=== PATIENT | male | born 1955 | race Caucasian/White ===

== ENCOUNTER 2016-10-21 11:51 | Inpatient (IN) | payer OTHER ==
[~2016-10-21] VITALS: Ht 175.3 cm; Wt 93.5 kg
[2016-10-30] MEDS ORDERED: OXYC1TAB36 PO (13:19)
[2016-11-06] MEDS ORDERED: ONDANSETRON HCL 4 MG/2 ML VIAL IV PUSH ONE (12:00)
[2016-11-06] MEDS ORDERED: NEOSTIGMINE 3 MG/3 ML SYR IV ONE (12:00)
[2016-11-06] MEDS ORDERED: NORMOSOL R INJ 2,000 ML IV ONE (12:00)
[2016-11-06] MEDS ORDERED: ePHEDrine/NS 25 MG/5 ML SYR IV ONE (12:00)
[2016-11-06] MEDS ORDERED: PROPOFOL 200 MG/20 ML AMP IV ONE (12:00)
[2016-11-06] MEDS ORDERED: LACTATED RINGER'S 1000 ML INJ 2,000 ML IV ONE (12:00)
[2016-11-06 12:21] VITALS: BP 115/69; PULSE 68; RESP 18; TEMP 97.7; O2SAT 98
[2016-11-06] MEDS ORDERED: ALVIMOPAN 12 MG CAPSULE ONE (12:29)
[2016-11-06] MEDS ORDERED: CHLORHEXIDINE GLUCONATE 2 % 1 PACK (2 CLOTHS) TOPICAL PRN (12:30)
[2016-11-06] MEDS ORDERED: POVIDONE IODINE 5% (ANTISEPSIS KIT) 4 APPLICATIONS EACH NARE PRN (12:30)
[2016-11-06] MEDS ORDERED: LACTATED RINGER'S 1000 ML IV PRN (12:30)
[2016-11-06] MEDS ORDERED: SODIUM CHLORID 0.9% 500 ML IV PRN (12:30)
[2016-11-06] MEDS ORDERED: INSULIN HUMAN REGULAR 1,000 UNITS/10 ML VIAL SQ PRN (12:30)
[2016-11-06] MEDS ORDERED: DEXT 5%-NACL 0.9% 1000 ML INJ 1,000 ML IV SCH (12:30)
[2016-11-06] MEDS ORDERED: ceFAZolin 1,000 MG/NS 100 ML IV SCH ×2 (12:30)
[2016-11-06] MEDS ORDERED: METOPROLOL TARTRATE 25 MG TAB PO PRN (12:30)
[2016-11-06] MEDS ORDERED: METRONIDAZOLE 500 MG/100 ML ISONTONIC SOLN IV SCH (12:30)
[2016-11-06] MEDS ORDERED: BUPIVACAINE HCL PF 0.5% 30 ML VIAL ONE (12:35)
[2016-11-06] MEDS ORDERED: ACETAMINOPHEN 1000 MG/100 ML VIAL IV ONE (13:11)
[2016-11-06] MEDS ORDERED: MIDAZOLAM HCL 2 MG/2 ML VIAL ONE (13:11)
[2016-11-06] MEDS ORDERED: ARTIFICIAL TEARS OPTH OINT 3.5 APPLIC/3.5 GM TUBO ONE (13:11)
[2016-11-06] MEDS ORDERED: fentaNYL CITRATE 250 MCG/5 ML AMP ONE ×3 (13:12→15:25)
[2016-11-06] MEDS ORDERED: HYDROmorphone HCL PF 2 MG/ML VIAL ONE ×2 (13:12→13:13)
[2016-11-06 15:55] LABS: REVIEW FLAG FINAL
[2016-11-06] MEDS ORDERED: ACETAMINOPHEN/HYDROcodone 325 MG/5 MG TAB PO PRN ×2 (16:45)
[2016-11-06] MEDS ORDERED: BENZOCAINE 6 MG/MENTHOL 10 MG LOZENGE BUCCAL PRN (16:45)
[2016-11-06] MEDS ORDERED: NALOXONE HCL 0.4 MG/ML AMP IV PRN (16:45)
[2016-11-06] MEDS ORDERED: SODIUM CHLORIDE 0.9% FLUSH 10 ML FLUSH IV FLUSH PRN (16:45)
[2016-11-06] MEDS ORDERED: POTASSIUM CHLOR 20 MEQ PREMIX 100 ML IV PRN (16:45)
[2016-11-06] MEDS ORDERED: Post-op Orders (for Pharmacy) MISC XX ONE (16:45)
[2016-11-06] MEDS ORDERED: ENALAPRILAT 1.25 MG/ML VIAL IV PRN (16:45)
[2016-11-06] MEDS ORDERED: POTASSIUM CHLOR 40 MEQ PREMIX 100 ML IV PRN (16:45)
[2016-11-06] MEDS ORDERED: *morphine SULFATE 8 MG/ML PERIprocedure ONLY ONE ×2 (16:55→17:16)
[2016-11-06] MEDS ORDERED: DO NOT ADM ANY ANTICOAGULANT DRUGS PRN ×2 (17:15→17:45)
[2016-11-06 17:25] LABS: AUTOMATED NEUTROPHIL # 9.5 TH/MM3 (1.8-7.7); BASOPHIL % 0.2 % (0.0-2.0); EOSINOPHIL # 0.1 TH/MM3 (0-0.4); EOSINOPHIL % 0.6 % (0.0-4.0); HEMATOCRIT 31.7 % (39.0-51.0); HEMO FLAGS DIFF FINAL; LYMPH % 6.2 % (9.0-44.0); LYMPHOCYTE # 0.7 TH/MM3 (1.0-4.8); MEAN CELL VOLUME 91.2 FL (80.0-100.0); MEAN CORPUSCULAR HEMOGLOBIN 31.3 PG (27.0-34.0); MEAN CORPUSCULAR HGB CONC 34.3 % (32.0-36.0); MONO % 3.9 % (0.0-8.0); NEUT % 89.1 % (16.0-70.0); PLATELET COUNT 152 TH/MM3 (150-450); RED BLOOD COUNT 3.48 MIL/MM3 (4.50-5.90); RED CELL DISTRIBUTION WIDTH 13.7 % (11.6-17.2); WHITE BLOOD COUNT 10.7 TH/MM3 (4.0-11.0)
[2016-11-06] MEDS ORDERED: *HYDROmorphone PF 1 MG VIAL PERIprocedural Use ONLY ONE (17:38)
[2016-11-06] MEDS: D5-LR + KCL 20 MEQ INJ 1,000 ML IV SCH ×2 (17:44→21:25)
[2016-11-06] MEDS: MORPHINE SULFATE 30 MG/30 ML PCA IV SCH (17:49)
[2016-11-06] MEDS: METOCLOPRAMIDE HCL 10 MG/2 ML VIAL IVS SCH (17:49)
[2016-11-06] MEDS: ceFAZolin 2 GM PREMIX 50 ML IV SCH (17:55)
[2016-11-06 18:05] LABS: BICARBONATE 23.7 MEQ/L (21.0-32.0)
[2016-11-06 18:25] LABS: CALCIUM-PROTEIN CORRECTED 8.8 MG/DL (8.5-10.1)
[2016-11-06 20:00] VITALS: BP 143/87; PULSE 67; PULSE 86; RESP 18; TEMP 98.2; O2SAT 99
[2016-11-06 21:00] VITALS: PULSE 70
[2016-11-06] MEDS: SODIUM CHLORIDE 0.9% FLUSH 10 ML FLUSH IV FLUSH SCH (21:24)
[2016-11-06] MEDS: metroNIDAZOLE 500 MG INJ 100 ML IV SCH (21:24)
[2016-11-06] MEDS: FUROSEMIDE 20 MG/2 ML VIAL IV SCH (21:24)
[2016-11-06] MEDS: PCA - TOTAL MG MORPHINE DELIVERED PER SHIFT SCH (21:42)
[2016-11-06 22:00] VITALS: PULSE 82
[2016-11-06 23:00] VITALS: PULSE 66
[2016-11-07] VITALS (22 sets, daily range): BP systolic 111–131; BP diastolic 62–77; PULSE 66–90; RESP 18–20; TEMP 97.9–98.9; O2SAT 95–99
[2016-11-07] MEDS: ceFAZolin 2 GM PREMIX 50 ML IV SCH ×2 (00:21→08:32)
[2016-11-07] MEDS: METOCLOPRAMIDE HCL 10 MG/2 ML VIAL IVS SCH ×4 (00:21→17:20)
[2016-11-07] MEDS: D5-LR + KCL 20 MEQ INJ 1,000 ML IV SCH ×3 (00:23→17:20)
[2016-11-07] MEDS: metroNIDAZOLE 500 MG INJ 100 ML IV SCH ×2 (04:55→13:29)
[2016-11-07] MEDS: PCA - TOTAL MG MORPHINE DELIVERED PER SHIFT SCH ×3 (06:00→22:00)
[2016-11-07 07:21] LABS: BASOPHIL % 0.1 % (0.0-2.0); HEMATOCRIT 31.9 % (39.0-51.0); HEMO FLAGS DIFF FINAL; LYMPHOCYTE # 0.5 TH/MM3 (1.0-4.8); MEAN CELL VOLUME 90.2 FL (80.0-100.0); MEAN CORPUSCULAR HEMOGLOBIN 30.6 PG (27.0-34.0); MEAN CORPUSCULAR HGB CONC 33.9 % (32.0-36.0); MONO % 8.3 % (0.0-8.0); NEUT % 87.6 % (16.0-70.0); PLATELET COUNT 177 TH/MM3 (150-450); RED BLOOD COUNT 3.54 MIL/MM3 (4.50-5.90); RED CELL DISTRIBUTION WIDTH 13.8 % (11.6-17.2); WHITE BLOOD COUNT 12.6 TH/MM3 (4.0-11.0)
[2016-11-07 07:58] LABS: BICARBONATE 26.1 MEQ/L (21.0-32.0); POTASSIUM 4.3 MEQ/L (3.5-5.1)
[2016-11-07 08:24] LABS: CALCIUM-PROTEIN CORRECTED 8.2 MG/DL (8.5-10.1)
[2016-11-07] MEDS: KETOROLAC TROMETHAMINE 30 MG/ML (IVP) VIAL IVP PRN (08:31)
[2016-11-07] MEDS: PANTOPRAZOLE SODIUM 40 MG VIAL IVP SCH (08:31)
[2016-11-07] MEDS: FUROSEMIDE 20 MG/2 ML VIAL IV SCH ×2 (08:32→20:21)
[2016-11-07] MEDS: SODIUM CHLORIDE 0.9% FLUSH 10 ML FLUSH IV FLUSH SCH ×2 (08:32→20:20)
[2016-11-07] MEDS ORDERED: MISCELLANEOUS NURSING INFORMATION ONE (10:00)
--- NOTE | 2016-11-07 17:32 | HHI.PR ---
Subjective Remarks No N or V. Not c/o much pain. No stool from Ileostomy yet. Objective Vital Signs Date Time Temp Pulse Resp B/P Pulse Ox O2 Delivery O2 Flow Rate FiO2 11/07/16 16:01 82 11/07/16 15:15 78 11/07/16 15:15 98.7 89 18 121/66 98 11/07/16 14:01 80 11/07/16 13:00 76 11/07/16 12:00 74 11/07/16 11:01 98.6 79 18 112/67 98 11/07/16 11:00 76 11/07/16 10:01 72 11/07/16 09:30 18 11/07/16 09:00 80 11/07/16 08:39 96 Nasal Cannula 1.00 11/07/16 08:30 98.9 74 18 131/69 98 11/07/16 08:30 98 Nasal Cannula 2.00 11/07/16 08:00 70 11/07/16 07:00 78 11/07/16 06:00 78 11/07/16 06:00 20 11/07/16 05:00 72 11/07/16 04:00 Nasal Cannula 2.00 11/07/16 04:00 98.6 70 18 118/75 97 11/07/16 04:00 70 11/07/16 03:00 66 11/07/16 02:00 70 11/07/16 01:00 76 11/07/16 00:00 98.2 66 20 124/77 99 11/07/16 00:00 Nasal Cannula 2.00 11/07/16 00:00 68 11/06/16 23:00 66 11/06/16 22:00 82 11/06/16 21:42 20 11/06/16 21:00 70 11/06/16 20:00 Nasal Cannula 2.00 11/06/16 20:00 86 11/06/16 20:00 20 11/06/16 20:00 98.2 67 18 143/87 99 11/06/16 19:30 97.8 11/06/16 19:09 75 15 128/68 100 Nasal Cannula 3 11/06/16 18:00 69 15 135/77 99 Nasal Cannula 3 11/06/16 17:49 16 11/06/16 17:45 72 15 132/75 99 Nasal Cannula 3 11/06/16 17:30 68 14 131/69 99 Nasal Cannula 3 I/O 11/06/16 11/06/16 11/06/16 11/07/16 11/07/16 11/07/16 07:00 15:00 23:00 07:00 15:00 23:00 Intake Total 4525 ml 2426 ml Output Total 1820 ml 1725 ml Balance 2705 ml 701 ml Intake Oral 100 ml IV Total 625 ml 2326 ml Other 3900 ml Output Urine Total 490 ml 1625 ml Stool Total 10 ml Drainage Total 120 ml 100 ml Estimated Blood Loss 1200 ml Result Diagram: 11/07/16 0654 11/07/16 0654 Objective Remarks VS-S Abd: flat,soft,dressing dry. Stoma pink I&Os and Labs: OK Assessment and Plan Assessment and Plan POD#1--Stable Decrease IVs,ambulate,FLD tomorrow, D/C tele, Transfer to 7 Jadon Zavala MD Nov 07, 2016 17:32
[2016-11-07] MEDS: ALVIMOPAN 12 MG CAPSULE PO SCH (20:19)
[2016-11-08] VITALS (7 sets, daily range): BP systolic 111–143; BP diastolic 59–82; PULSE 83–89; RESP 16–19; TEMP 96.4–99.5; O2SAT 93–95
[2016-11-08] MEDS: METOCLOPRAMIDE HCL 10 MG/2 ML VIAL IVS SCH ×4 (01:46→17:22)
[2016-11-08] MEDS: MORPHINE SULFATE 30 MG/30 ML PCA IV SCH (01:49)
[2016-11-08] MEDS: D5-LR + KCL 20 MEQ INJ 1,000 ML IV SCH ×3 (03:12→20:40)
[2016-11-08 05:22] LABS: AUTOMATED NEUTROPHIL # 7.6 TH/MM3 (1.8-7.7); BASOPHIL % 0.2 % (0.0-2.0); EOSINOPHIL % 0.6 % (0.0-4.0); HEMATOCRIT 26.3 % (39.0-51.0); HEMO FLAGS DIFF FINAL; LYMPH % 5.6 % (9.0-44.0); LYMPHOCYTE # 0.5 TH/MM3 (1.0-4.8); MEAN CELL VOLUME 90.4 FL (80.0-100.0); MEAN CORPUSCULAR HEMOGLOBIN 31.9 PG (27.0-34.0); MEAN CORPUSCULAR HGB CONC 35.2 % (32.0-36.0); MONO % 7.8 % (0.0-8.0); NEUT % 85.8 % (16.0-70.0); PLATELET COUNT 142 TH/MM3 (150-450); RED BLOOD COUNT 2.91 MIL/MM3 (4.50-5.90); RED CELL DISTRIBUTION WIDTH 13.9 % (11.6-17.2); WHITE BLOOD COUNT 8.9 TH/MM3 (4.0-11.0)
[2016-11-08] MEDS: PCA - TOTAL MG MORPHINE DELIVERED PER SHIFT SCH (05:37)
[2016-11-08 05:52] LABS: BICARBONATE 30.8 MEQ/L (21.0-32.0)
[2016-11-08] MEDS: SODIUM CHLORIDE 0.9% FLUSH 10 ML FLUSH IV FLUSH SCH ×2 (08:14→20:39)
[2016-11-08] MEDS: FUROSEMIDE 20 MG/2 ML VIAL IV SCH ×2 (08:14→20:39)
[2016-11-08] MEDS: ALVIMOPAN 12 MG CAPSULE PO SCH ×2 (08:14→20:38)
[2016-11-08] MEDS: PANTOPRAZOLE SODIUM 40 MG VIAL IVP SCH (08:14)
[2016-11-08] MEDS ORDERED: PNEUMOCOCCAL POLYVALENT INJ 25 MCG/0.5 ML SYR IM ONE (10:00)
--- NOTE | 2016-11-08 10:09 | HHI.PR ---
Subjective Remarks No N or V. C/O more pain. Uses 5-6 10mg Hydrocodone daily at home. No stool from Ileostomy yet. Objective Vital Signs Date Time Temp Pulse Resp B/P Pulse Ox O2 Delivery O2 Flow Rate FiO2 11/08/16 08:55 94 21 11/08/16 08:10 93 Room Air 11/08/16 08:00 97.3 86 16 115/59 93 11/08/16 05:37 16 11/08/16 04:00 99.5 89 16 119/66 94 11/08/16 01:49 18 11/08/16 00:00 97.7 88 18 111/60 93 11/07/16 22:00 18 11/07/16 20:00 97.9 90 18 111/62 95 11/07/16 17:00 84 11/07/16 16:01 82 11/07/16 15:15 78 11/07/16 15:15 98.7 89 18 121/66 98 11/07/16 14:01 80 11/07/16 14:00 18 11/07/16 13:00 76 11/07/16 12:00 74 11/07/16 11:01 98.6 79 18 112/67 98 11/07/16 11:00 76 I/O 11/07/16 11/07/16 11/07/16 11/08/16 11/08/16 11/08/16 07:00 15:00 23:00 07:00 15:00 23:00 Intake Total 2426 ml 4218 ml 974 ml Output Total 1725 ml 2480 ml 690 ml Balance 701 ml 1738 ml 284 ml Intake Oral 100 ml 960 ml 240 ml IV Total 2326 ml 3258 ml 734 ml Output Urine Total 1625 ml 2450 ml 650 ml Stool Total 0 ml Drainage Total 100 ml 30 ml 40 ml # Bowel Movements 0 Result Diagram: 11/08/16 0506 11/08/16 0506 Objective Remarks VS-S Abd: flat,soft,dressing removedStoma pink I&Os and Labs: OK Assessment and Plan Assessment and Plan POD#--Stable Decrease IVs,ambulate, Reg diet in AM. Start Oxycodone for pain. Jadon Roth MD Nov 08, 2016 10:09
[2016-11-08] MEDS ORDERED: oxyCODONE/ACETAMINOPHEN 7.5 MG/325 MG TAB PO PRN (10:15)
[2016-11-08] MEDS: oxyCODONE/ACETAMINOPHEN 10 MG/325 MG TAB PO PRN ×3 (13:08→21:32)
[2016-11-08] MEDS: KETOROLAC TROMETHAMINE 30 MG/ML (IVP) VIAL IVP PRN (20:39)
--- NOTE | 2016-11-08 22:05 | MP ---
cc: JENISE ROTH DATE OF SURGERY 11/06/16 PREOPERATIVE DIAGNOSIS Low rectal carcinoma. POSTOPERATIVE DIAGNOSIS Low rectal carcinoma PROCEDURE 1. Rectosigmoidectomy with casa Coloanal anastomosis 2. Diverting loop ileostomy. 3. Omental flap SURGEON Dr. Bruna Roth CARD CUTTER HELPER Dr. Grace Cabral ANESTHESIA General endotracheal ESTIMATED BLOOD LOSS 1100 mL. OPERATING TIME Two hours and 30 minutes. OPERATIVE FINDINGS This patient had a very low posterior rectal cancer in the right posterior position with some surrounding lymphadenopathy. He underwent preoperative radiation therapy, chemotherapy and the lesion decreased in size but still had a lot of bulk and was and was positive on PET scan and there was an ulceration present. It was felt that there was residual tumor along with probable residual adenopathy. For this reason, a very low anterior resection with a coloanal stapled anastomosis was done. Exploration of the abdominal cavity revealed that the liver was palpably normal. The gallbladder had one good size stone in the gallbladder but no thickening and the gallbladder was left alone. The stomach, remainder of the colon and small bowel was all palpably normal. A very low anterior resection was done with a coloanal anastomosis. OPERATIVE TECHNIQUE The patient was placed on the table in the supine position. After adequate general endotracheal anesthesia, the legs were placed in the perineal lithotomy position and the abdomen and perineum were prepped and draped in usual manner. Transverse infraumbilical skin incision was made, carried down through the subcutaneous tissue and the rectus muscle. The perineal cavity was entered with above-mentioned findings. Out attention was turned to the sigmoid colon and it was mobilized along its peritoneal reflection up to but not including the splenic flexure. Left ureter was identified and protected at all times. The inferior mesenteric artery was clamped, cut and doubly ligated at its origin with 0 Vicryl ligatures. Inferior mesenteric vein was then clamped, cut and ligated. The lateral pelvic peritoneum was incised bilaterally and then a retrorectal space was entered and dissection was taken down posteriorly. He had a very small male pelvis and, because of the size of the rectum, dissection was mildly difficult. The planes were good. We were able to posteriorly dissect down to the pelvic floor. Laterally, the pelvic perineum was incised and the lateral stalks were divided with electrocautery. A total mesenteric excision was done because of the lowness of the lesion. Again the lesion was located in the right posterior portion of the rectum and the dissection was taken down around the mesorectum along the right pelvic sidewall. The seminal vesicles in the right anterior and left anterior position were identified and the dissection was taken just below the seminal vesicles. The cul-de-sac was entered anteriorly and the fascia was incised and the plane between the prostate and the rectum was dissected with sharp dissection down to the pelvic floor. It became quite difficult because of retraction and the size of his pelvis and the Kidd retractor was placed and consistent retraction was then obtained. The remainder of the dissection of the rectum down to the pelvic floor into the anal canal through the levators was then done. Once the dissection was finished up posteriorly and the total mesorectum was surrounded, we are able to place the contour stapler just above the dentate line in the rectum and the contour stapler was fired, dividing the rectum and stapling it closed. The sigmoid colon mesentery was clamped, cut and ligated and the point chosen for division of the sigmoid colon was determined and a pursestring stapling device was placed on the sigmoid and then the mesentery was clamped, cut and ligated as mentioned and the bowel was divided. The anvil of the Ethicon 29 EEA stapler was placed in the proximal bowel and the pursestring was tied. Dr. Cabral then went below and placed the EEA instrument transanally just up above the anal canal between the levator muscles. The trocar was brought out through the staple line and the instrument was connected, closed and fired creating extremely low coloanal anastomosis. The distal doughnut did not seem intact. However, palpably the anastomosis was intact and Dr. Cabral then did proctosigmoidoscopy examination insufflating air into the rectum with saline solution in the pelvis. No air leaks were identified. The anastomosis could not be inspected from above to the lowness and the fact that it was between the levator muscles. There was still some anterior oozing from the base of the prostate and some fibrillar was placed anteriorly. Irrigation of the pelvis was done with 3000 mL of saline solution. Blood loss from this pelvic dissection was slow but was approximately 1000 mL. Hemostasis seemed adequate at the end of the case. There was no tension on the anastomosis. The blood supply to the bowel seemed good. Our attention was then turned to the terminal ileum and a mesenteric opening was made in the terminal ileum at a point chosen for diverting loop ileostomy. Ileostomy site was brought out through the right upper quadrant in the lateral portion of the rectus muscle. I should note that he had some sort of upper abdominal hernia repair. It seemed laparoscopically possibly even a repair of a diastasis recti as there did not seem to be a hernia present. There was Marlex mesh present with metal clips, but the omentum was initially stuck on this and required removal from this mesh. The omentum was split in the middle and mobilized so that the left portion of the omentum in the lesser sac was entered and we are able to use this omentum down the left colic gutter to place in the pelvis over the anastomotic area. We then placed a drain to the right lower quadrant and it was placed down the posterior pelvis. The ileostomy was brought out through the stoma site and the bowels were replaced in the abdominal cavity in an mechanical laboratory technician manner after we were sure that hemostasis was good throughout the abdomen. The abdominal cavity was then closed in layers using a double-stranded #1 PDS for the posterior rectus sheath and irrigated that layer and then the double-stranded #1 PDS was used for the anterior rectus sheath and then the subcutaneous tissue was irrigated thoroughly as well. The skin was closed with 3-0 Vicryl subcuticular sutures. We then matured the ileostomy in the end loop fashion stapling off the distal arm of the ileostomy with a TX 30 stapling device and then creating the anastomosis with interrupted 3-0 Vicryl sutures. A 57-mm appliance was applied and dressings were applied. Sponge, needle and instrument counts were reported as correct. Estimated blood loss was 1100 mL. The patient tolerated the procedure well and left the operating room in good condition. MD VENKATESH Rutledge/ /4:54 PM /9:52 PM
[2016-11-09 00:11] VITALS: BP 132/63; PULSE 89; RESP 19; TEMP 97.1; O2SAT 96
[2016-11-09] MEDS: oxyCODONE/ACETAMINOPHEN 10 MG/325 MG TAB PO PRN ×5 (03:29→21:52)
[2016-11-09 04:00] VITALS: BP 113/64; PULSE 91; RESP 16; TEMP 96.6; O2SAT 96
[2016-11-09] MEDS: METOCLOPRAMIDE HCL 10 MG/2 ML VIAL IVS SCH ×4 (07:01→17:49)
[2016-11-09 08:00] VITALS: BP 113/70; PULSE 87; RESP 20; TEMP 96.8; O2SAT 95
--- NOTE | 2016-11-09 08:12 | HHI.PR ---
Subjective Remarks No complaints but pt had leak from Ileostomy bag. Being washed now. Consult Enterostomal nurse for supplies and teaching. Will need HHC. Objective Vital Signs Date Time Temp Pulse Resp B/P Pulse Ox O2 Delivery O2 Flow Rate FiO2 11/09/16 04:00 96.6 91 16 113/64 96 11/09/16 00:11 97.1 89 19 132/63 96 11/08/16 23:00 93 Room Air 11/08/16 20:00 96.8 83 19 143/82 93 11/08/16 18:10 18 11/08/16 15:00 97.1 89 17 137/72 95 11/08/16 12:00 96.4 83 17 140/72 94 11/08/16 08:55 94 21 11/08/16 08:10 93 Room Air I/O 11/08/16 11/08/16 11/08/16 11/09/16 11/09/16 11/09/16 07:00 15:00 23:00 07:00 15:00 23:00 Intake Total 974 ml 1008 ml 120 ml 120 ml Output Total 690 ml 560 ml 165 ml 640 ml Balance 284 ml 448 ml -45 ml -520 ml Intake Oral 240 ml 240 ml 120 ml 120 ml IV Total 734 ml 768 ml Output Urine Total 650 ml 500 ml 100 ml 250 ml Stool Total 300 ml Drainage Total 40 ml 60 ml 65 ml 90 ml # Bowel Movements 0 1 0 0 Result Diagram: 11/08/16 0506 11/08/16 0506 Objective Remarks VS-S Abd: flat,soft, wound clean, stoma working I&Os and Labs: OK Assessment and Plan Assessment and Plan POD#3-Stable Decrease IVs,ambulate, Regular diet, Enterostomal nursing and HHC ordered. Possible D/C tomorrow. Jadon Roth MD Nov 09, 2016 08:12
[2016-11-09] MEDS: SODIUM CHLORIDE 0.9% FLUSH 10 ML FLUSH IV FLUSH SCH ×2 (09:00→21:00)
[2016-11-09] MEDS: PANTOPRAZOLE SODIUM 40 MG VIAL IVP SCH (09:25)
[2016-11-09] MEDS: ALVIMOPAN 12 MG CAPSULE PO SCH ×2 (09:25→21:51)
[2016-11-09] MEDS: FUROSEMIDE 20 MG/2 ML VIAL IV SCH (09:25)
[2016-11-09 12:00] VITALS: BP 135/68; PULSE 102; RESP 20; TEMP 96.7; O2SAT 97
[2016-11-09] MEDS: D5-LR + KCL 20 MEQ INJ 1,000 ML IV SCH (12:08)
[2016-11-09 12:42] LABS: AUTOMATED NEUTROPHIL # 9.6 TH/MM3 (1.8-7.7); BASOPHIL % 0.1 % (0.0-2.0); EOSINOPHIL # 0.2 TH/MM3 (0-0.4); EOSINOPHIL % 1.5 % (0.0-4.0); HEMATOCRIT 29.9 % (39.0-51.0); HEMO FLAGS DIFF FINAL; LYMPH % 4.3 % (9.0-44.0); LYMPHOCYTE # 0.5 TH/MM3 (1.0-4.8); MEAN CELL VOLUME 91.4 FL (80.0-100.0); MEAN CORPUSCULAR HEMOGLOBIN 31.1 PG (27.0-34.0); MONO % 6.4 % (0.0-8.0); NEUT % 87.7 % (16.0-70.0); PLATELET COUNT 191 TH/MM3 (150-450); RED BLOOD COUNT 3.27 MIL/MM3 (4.50-5.90); RED CELL DISTRIBUTION WIDTH 13.8 % (11.6-17.2)
[2016-11-09 13:14] LABS: BICARBONATE 24.8 MEQ/L (21.0-32.0); POTASSIUM 3.9 MEQ/L (3.5-5.1)
[2016-11-09 16:00] VITALS: BP 108/64; PULSE 99; RESP 22; TEMP 100.2; TEMP 101.2; O2SAT 95
[2016-11-09 20:00] VITALS: BP 103/67; PULSE 105; RESP 17; TEMP 99.4; O2SAT 98
[2016-11-10] VITALS: BP 114/66; PULSE 111; RESP 18; TEMP 100.2; O2SAT 95
[2016-11-10] MEDS: METOCLOPRAMIDE HCL 10 MG/2 ML VIAL IVS SCH ×5 (04:59→22:47)
[2016-11-10] MEDS: oxyCODONE/ACETAMINOPHEN 10 MG/325 MG TAB PO PRN ×5 (04:59→22:47)
[2016-11-10 08:00] VITALS: BP 115/67; PULSE 97; RESP 20; TEMP 98.7; O2SAT 97
--- NOTE | 2016-11-10 08:45 | HHI.PR ---
Subjective Remarks No complaints but had urinary incontinence and low grade temps yesterday. Objective Vital Signs Date Time Temp Pulse Resp B/P Pulse Ox O2 Delivery O2 Flow Rate FiO2 11/10/16 08:00 98.7 97 20 115/67 97 11/10/16 00:00 100.2 111 18 114/66 95 11/09/16 22:52 18 11/09/16 20:00 99.4 105 17 103/67 98 11/09/16 16:00 100.2 11/09/16 16:00 101.2 99 22 108/64 95 11/09/16 12:00 96.7 102 20 135/68 97 11/09/16 09:20 Room Air I/O 11/09/16 11/09/16 11/09/16 11/10/16 11/10/16 11/10/16 07:00 15:00 23:00 07:00 15:00 23:00 Intake Total 120 ml 771 ml 240 ml 480 ml Output Total 640 ml 100 ml 300 ml 120 ml Balance -520 ml 671 ml -60 ml 360 ml Intake Oral 120 ml 240 ml 240 ml 480 ml IV Total 531 ml Output Urine Total 250 ml 300 ml 100 ml Stool Total 300 ml Drainage Total 90 ml 100 ml 20 ml # Voids 1 # Bowel Movements 0 1 Result Diagram: 11/09/16 1205 11/09/16 1205 Objective Remarks VS-S Abd: mildly distended,wound clean,drain removed. I&Os and Labs: OK Assessment and Plan Assessment and Plan POD#4-Stable Decrease IVs,ambulate, Regular diet, Enterostomal nursing and HHC ordered. Possible D/C tomorrow. Will get port flushed and check urinary scan or Jadon Long MD Nov 10, 2016 08:44
[2016-11-10] MEDS: SODIUM CHLORIDE 0.9% FLUSH 10 ML FLUSH IV FLUSH SCH ×2 (09:00→20:45)
--- NOTE | 2016-11-10 09:02 | HHI.FF ---
Face to Face Verification Diagnosis: (1) Cancer of rectum (2) Ileostomy in place (3) Low anterior resection of Rectum Home Health Nursing Order: Medical education Wound care and dressing changes Nursing assessment with vital signs Instructions: Needs Ileostomy supplies and teaching for new Ileostomy High Lift Mule Operator Order: To Evaluate: Living conditions/environment, Support services I have seen patient Brayan Velazquez on 11/10/16. My clinical findings support the need for the requested home health care services because: Ltd mobility - disease progression Deconditioned w/ increased weakness Limited ability to care for self I certify that my clinical findings support that this patient is homebound because: Post-op weakness Impaired cognitive ability/safety Unsteady gait/balance Unsafe to leave home unassisted Need for psychosocial assistance Jadon Roth MD Nov 10, 2016 09:01
[2016-11-10] MEDS: ALVIMOPAN 12 MG CAPSULE PO SCH ×2 (10:01→20:45)
[2016-11-10] MEDS: PANTOPRAZOLE SODIUM 40 MG VIAL IVP SCH (10:01)
[2016-11-10 12:00] VITALS: BP 104/57; PULSE 90; RESP 18; TEMP 95.9; O2SAT 94
[2016-11-10] MEDS: D5-LR + KCL 20 MEQ INJ 1,000 ML IV SCH ×2 (14:39→20:46)
[2016-11-10 16:00] VITALS: BP 107/60; PULSE 92; RESP 18; TEMP 99.2; O2SAT 94
[2016-11-10 20:00] VITALS: BP 107/56; PULSE 88; RESP 22; TEMP 99.1; O2SAT 94
[2016-11-11] VITALS: BP 98/56; PULSE 85; RESP 20; TEMP 98.7; O2SAT 96
[2016-11-11] MEDS: D5-LR + KCL 20 MEQ INJ 1,000 ML IV SCH ×3 (03:22→16:02)
[2016-11-11] MEDS: oxyCODONE/ACETAMINOPHEN 10 MG/325 MG TAB PO PRN ×5 (03:22→20:37)
[2016-11-11 04:00] VITALS: TEMP 97.8
[2016-11-11 05:37] LABS: AUTOMATED NEUTROPHIL # 4.9 TH/MM3 (1.8-7.7); BASOPHIL % 0.7 % (0.0-2.0); EOSINOPHIL # 0.2 TH/MM3 (0-0.4); HEMATOCRIT 23.5 % (39.0-51.0); HEMO FLAGS DIFF FINAL; LYMPHOCYTE # 0.2 TH/MM3 (1.0-4.8); MEAN CELL VOLUME 90.9 FL (80.0-100.0); MEAN CORPUSCULAR HGB CONC 34.1 % (32.0-36.0); MONO % 10.1 % (0.0-8.0); NEUT % 82.2 % (16.0-70.0); PLATELET COUNT 172 TH/MM3 (150-450); RED BLOOD COUNT 2.59 MIL/MM3 (4.50-5.90); RED CELL DISTRIBUTION WIDTH 13.9 % (11.6-17.2); WHITE BLOOD COUNT 5.9 TH/MM3 (4.0-11.0)
[2016-11-11 05:57] LABS: BICARBONATE 27.9 MEQ/L (21.0-32.0); POTASSIUM 4.1 MEQ/L (3.5-5.1)
[2016-11-11] MEDS: METOCLOPRAMIDE HCL 10 MG/2 ML VIAL IVS SCH ×3 (06:14→18:22)
[2016-11-11 08:00] VITALS: BP 107/59; PULSE 87; RESP 18; TEMP 99.1; O2SAT 96
[2016-11-11] MEDS: PANTOPRAZOLE SODIUM 40 MG VIAL IVP SCH (08:06)
[2016-11-11] MEDS: ALVIMOPAN 12 MG CAPSULE PO SCH ×2 (08:06→20:37)
[2016-11-11] MEDS: SODIUM CHLORIDE 0.9% FLUSH 10 ML FLUSH IV FLUSH SCH ×2 (08:07→20:35)
[2016-11-11 12:00] VITALS: BP 127/63; PULSE 107; RESP 20; TEMP 100.5; O2SAT 95
[2016-11-11 16:00] VITALS: BP 118/66; PULSE 113; RESP 24; TEMP 100.4; O2SAT 95
--- NOTE | 2016-11-11 17:55 | HHI.PR ---
Subjective . C/O incisional pain. Has not had any stoma teaching yet. Temps down. Better hydrated. Objective . VS-S Abd: benign,no evidence of wound infection. Stoma working. I&Os and labs better. Assessment/Plan . Urinary retention. Urine C&S pending Will not D/C today. Needs Ileostomy supplies and teaching. D/C keller in AM Jadon Roth MD Nov 11, 2016 17:55
[2016-11-11 20:00] VITALS: BP 118/70; PULSE 114; RESP 22; TEMP 98.4; O2SAT 96
[2016-11-12] VITALS: BP 119/61; PULSE 108; RESP 20; TEMP 98.3; O2SAT 95
[2016-11-12] MEDS: D5-LR + KCL 20 MEQ INJ 1,000 ML IV SCH (00:39)
[2016-11-12] MEDS: oxyCODONE/ACETAMINOPHEN 10 MG/325 MG TAB PO PRN ×3 (00:40→08:43)
[2016-11-12] MEDS: METOCLOPRAMIDE HCL 10 MG/2 ML VIAL IVS SCH ×2 (00:40→05:31)
[2016-11-12 05:08] LABS: AUTOMATED NEUTROPHIL # 7.7 TH/MM3 (1.8-7.7); BASOPHIL % 0.1 % (0.0-2.0); EOSINOPHIL % 0.1 % (0.0-4.0); HEMATOCRIT 23.1 % (39.0-51.0); HEMO FLAGS DIFF FINAL; LYMPH % 1.8 % (9.0-44.0); LYMPHOCYTE # 0.2 TH/MM3 (1.0-4.8); MEAN CORPUSCULAR HEMOGLOBIN 31.6 PG (27.0-34.0); MEAN CORPUSCULAR HGB CONC 35.5 % (32.0-36.0); MONO % 8.4 % (0.0-8.0); NEUT % 89.6 % (16.0-70.0); PLATELET COUNT 189 TH/MM3 (150-450); WHITE BLOOD COUNT 8.6 TH/MM3 (4.0-11.0)
[2016-11-12 05:43] LABS: BICARBONATE 27.6 MEQ/L (21.0-32.0); POTASSIUM 4.2 MEQ/L (3.5-5.1)
[2016-11-12] MEDS: SODIUM CHLORIDE 0.9% FLUSH 10 ML FLUSH IV FLUSH SCH (07:11)
[2016-11-12] MEDS: PANTOPRAZOLE SODIUM 40 MG VIAL IVP SCH (07:12)
[2016-11-12 08:00] VITALS: BP 123/65; PULSE 104; RESP 20; TEMP 96.9; O2SAT 96
[2016-11-12] MEDS: ALVIMOPAN 12 MG CAPSULE PO SCH (08:43)
[2016-11-12] MEDS ORDERED: TAMS5CAP PO (09:01)
--- NOTE | 2016-11-12 09:17 | HHI.FF ---
Face to Face Verification Diagnosis: (1) Cancer of rectum (2) Ileostomy in place (3) Low anterior resection of Rectum Home Health Nursing Order: Medical education Signs/symptoms of disease process Medication education-adverse effect Wound care and dressing changes Mccormick catheter maintenance Instructions: Ileostomy teaching and care. If outputs more than 1100 cc/24 hours call my office. [phone] I have seen patient Brayan Velazquez on 11/12/16. My clinical findings support the need for the requested home health care services because: Ltd mobility - disease progression Deconditioned w/ increased weakness Limited ability to care for self High risk of falls I certify that my clinical findings support that this patient is homebound because: Post-op weakness Unsteady gait/balance Unsafe to leave home unassisted Need for psychosocial assistance Jadon Roth MD Nov 12, 2016 09:17
== END 2016-11-12 11:28 | disposition home health service (06) | DRG 331 ==
LOC: HSDI 11-06 11:39 → HCIS 11-06 20:08 → N07B 11-07 18:29
PROVIDERS: ADMIT Colon & Rectal Surgery; ATTEND Colon & Rectal Surgery
PROC: 0DBV0ZZ Excision of Mesentery, Open Approach (ICD-10-PCS; 2016-11-06)
PROC: 0WPF0JZ Removal of Synthetic Substitute from Abdominal Wall, Open Approach (ICD-10-PCS; 2016-11-06)
PROC: 0DBN0ZZ Excision of Sigmoid Colon, Open Approach (ICD-10-PCS; 2016-11-06)
PROC: 0D1B0Z4 Bypass Ileum to Cutaneous, Open Approach (ICD-10-PCS; principal; 2016-11-06 13:17)
PROC: 0DTP0ZZ Resection of Rectum, Open Approach (ICD-10-PCS; 2016-11-06 13:17)
DX: C20 Malignant neoplasm of rectum (principal); F17.210 Nicotine dependence, cigarettes, uncomplicated; R32 Unspecified urinary incontinence; K80.20 Calculus of gallbladder without cholecystitis without obstruction; Z92.3 Personal history of irradiation; Z92.21 Personal history of antineoplastic chemotherapy; Z23 Encounter for immunization
CPT/HCPCS: 36430; 80048; 84155; 85014; 85018; 85025; 86850; 86900; 86901; 86920; 87086; 88309; 90732; 94150; C9113; J0131; J0690; J1170; J1642; J1885; J1940; J2250; J2270; J2405; J2710; J2765; J3010; J3480; J7120; P9016

== ENCOUNTER → 2016-10-30 | Outpatient (CLI) | payer OTHER ==
[~2016-10-30] MED LIST: OXYC1TAB36 PO; TAMS5CAP PO
[2016-10-30 12:05] LABS: AUTOMATED NEUTROPHIL # 4.4 TH/MM3 (1.8-7.7); BASOPHIL % 0.5 % (0.0-2.0); EOSINOPHIL # 0.2 TH/MM3 (0-0.4); EOSINOPHIL % 3.1 % (0.0-4.0); HEMATOCRIT 39.2 % (39.0-51.0); HEMO FLAGS DIFF FINAL; LYMPH % 11.9 % (9.0-44.0); LYMPHOCYTE # 0.7 TH/MM3 (1.0-4.8); MEAN CELL VOLUME 90.4 FL (80.0-100.0); MEAN CORPUSCULAR HEMOGLOBIN 31.1 PG (27.0-34.0); MEAN CORPUSCULAR HGB CONC 34.4 % (32.0-36.0); MONO % 10.2 % (0.0-8.0); NEUT % 74.3 % (16.0-70.0); PLATELET COUNT 153 TH/MM3 (150-450); RED BLOOD COUNT 4.34 MIL/MM3 (4.50-5.90)
[2016-10-30 12:17] LABS: PROTHROMBIN TIME - PATIENT 10.5 SEC (9.8-11.6)
[2016-10-30 12:46] LABS: ANION GAP 8 MEQ/L (5-15); AST (GOT) 17 U/L (15-37); BICARBONATE 27.4 MEQ/L (21.0-32.0); BLOOD UREA NITROGEN 13 MG/DL (7-18); CHLORIDE 104 MEQ/L (98-107); GLOMERULAR FILTRATION RATE 68 ML/MIN (>89); GLUCOSE,FASTING 94 MG/DL (74-99); POTASSIUM 4.2 MEQ/L (3.5-5.1); SODIUM (NA) 139 MEQ/L (136-145)
[2016-10-30 12:47] LABS: ALT (GPT) 24 U/L (12-78)
[2016-10-30 12:49] LABS: BLOOD, URINE NEG (NEG); GLUCOSE,URINE NEG (NEG); KETONE, URINE NEG (NEG); NITRITE,URINE NEG (NEG); PH, URINE 5.5 (5.0-8.5); URINE COLOR YELLOW (YELLW/STRAW)
[2016-10-30 12:49] LABS: ALKALINE PHOSPHATASE 81 U/L (45-117); TOTAL BILIRUBIN ADULT 0.5 MG/DL (0.2-1.0)
[2016-10-30 12:50] LABS: COMMENT (UR) CULT NOT INDICATED; CULTURE IF INDICATED CULT NOT INDICATED
--- NOTE | 2016-10-31 17:57 | EKG ---
Date Performed: 10/30/2016 Time Performed: 11:45:53 PTAGE: 61 years EKG: SINUS BRADYCARDIA BORDERLINE ECG NO PREVIOUS TRACING DOCTOR: Russell Thompson Interpretating Date/Time 10/31/2016 17:56:42
== END ==
LOC: CPRE 11:16
PROVIDERS: ATTEND Colon & Rectal Surgery
DX: Z01.810 Encounter for preprocedural cardiovascular examination (principal); Z01.812 Encounter for preprocedural laboratory examination; C20 Malignant neoplasm of rectum; R00.1 Bradycardia, unspecified
CPT/HCPCS: 36415; 80053; 81001; 82378; 85025; 85610; 85730; 93005

== ENCOUNTER 2016-11-27 20:26 | Inpatient (IN) | payer OTHER ==
[~2016-11-27] VITALS: Ht 175.3 cm; Wt 75.7 kg
[~2016-11-27 20:26] MED LIST changes: +LACTATED RINGER'S 1000 ML INJ 1,000 ML IV ONE; +NORMOSOL R INJ 1,000 ML IV ONE; +ONDANSETRON HCL 4 MG/2 ML VIAL IV PUSH ONE; +PHENYLEPH/NS 1000 MCG/10 ML SYR IV ONE; +PROPOFOL 200 MG/20 ML AMP IV ONE
[2016-11-27 21:45] VITALS: PULSE 102
[2016-11-27] MEDS: DEXT 5%-NACL 0.9% 1000 ML INJ 1,000 ML IV SCH (22:00)
[2016-11-27] MEDS ORDERED: SODIUM CHLOR 0.9% 1000 ML INJ 1,000 ML IV SCH (22:00)
[2016-11-27 22:15] LABS: BASOPHIL # 0.1 TH/MM3 (0-0.2); BASOPHIL % 0.6 % (0.0-2.0); LYMPH % 0.7 % (9.0-44.0); LYMPHOCYTE # 0.1 TH/MM3 (1.0-4.8); MEAN CELL VOLUME 86.6 FL (80.0-100.0); MEAN CORPUSCULAR HEMOGLOBIN 29.2 PG (27.0-34.0); MEAN CORPUSCULAR HGB CONC 33.7 % (32.0-36.0); MONO % 3.3 % (0.0-8.0); NEUT % 95.4 % (16.0-70.0); PLATELET COUNT 368 TH/MM3 (150-450); RED BLOOD COUNT 2.77 MIL/MM3 (4.50-5.90); RED CELL DISTRIBUTION WIDTH 15.2 % (11.6-17.2); WHITE BLOOD COUNT 16.8 TH/MM3 (4.0-11.0)
[2016-11-27 22:19] LABS: HEMO FLAGS AUTO DIFF
[2016-11-27 22:29] LABS: BICARBONATE 16.9 MEQ/L (21.0-32.0); POTASSIUM 4.1 MEQ/L (3.5-5.1)
[2016-11-27 22:56] LABS: BANDS 18 % (0-6); METAMYELOCYTES 2 % (0-1); NEUTROPHIL # MANUAL DIFF 16.6 TH/MM3 (1.8-7.7); PLATELET ESTIMATE SMEAR NORMAL (NORMAL); PLATELET MORPHOLOGY NORMAL (NORMAL); POLYS (SEG NEUTROPHILS) 79 % (16-70); SCAN/DIFF FINAL DIFF MANUAL; WBC DIFF SAMPLE 100
[2016-11-27] MEDS ORDERED: PIPERACIL-TAZO 3.375 GM PREMIX 50 ML IV ONE (23:30)
--- NOTE | 2016-11-27 23:55 | MH ---
cc: JOSE DOCKERY M.D., JOHN T. M.D. DATE OF ADMISSION 11/27/2016 CHIEF COMPLAINT Rectal pain. HISTORY OF PRESENT ILLNESS This patient underwent a left colectomy with a coloanal anastomosis and diverting ileostomy 3 weeks ago for a bulky low rectal carcinoma. The pathology report revealed 11/12 lymph nodes were involved. The margin was clear by 2.5 cm distally. It was a very low coloanal anastomosis, a very difficult case. The patient did well in the hospital, went home from the hospital on the sixth postoperative day and the patient presented to Dr. Dockery's office today and she sent to the emergency room because of his rectal pain. He was sent to [facility] Emergency Room and arrived there at about 1:45 today. This evening they called and said that he underwent CT scanning showing bilateral rectal abscesses and pelvic fluid collection and air and fluid up the left colic gutter. They said that his abdominal examination was benign. He simply had rectal pain and he had a small amount of air in his urinary bladder as well. We had him transferred to [facility] where he arrived at approximately 9:30 this evening and I met him here and evaluated him. He said that he has been sick since he went home. He really has not been able to eat very much or drink very much and he started developing rectal pain at least a week ago. He did not call our office for followup. He has a follow-up appointment I believe next week, although, he was not sure up. Nevertheless, he is awake and alert and able to give me a history and I have spoken to his for the history as well. He says that he has had urinary incontinence. PAST MEDICAL HISTORY, SOCIAL HISTORY AND FAMILY HISTORY/ REVIEW OF SYSTEMS otherwise negative. PHYSICAL EXAMINATION GENERAL: Well-developed, sick appearing male complaining of buttocks pain. SKIN: Skin is warm and dry. HEENT: Extraocular muscles intact. NECK: Supple. CHEST: Chest is clear. ABDOMEN: Abdomen is flat, soft, nontender. No masses. His incision is healing well. No evidence of any wound infection. RECTAL: Exam inspection reveals purulent drainage coming from the rectum. He has bilateral induration of his buttock cheek over each ischiorectal fossa. Digital examination is done and he has an apparent disruption of his anastomosis quite probably circumferentially. I can palpate the colonic stump and placed my finger in it. There is no stool present in it. There is purulent drainage coming from his anal canal. Palpating outside the colonic anastomosis is indurated pelvic tissue. Mccormick catheter was placed by me and the first 450 cc was clear urine, the last 25 cc had a pain tinge once the bladder was decompressed. EXTREMITIES: Range of motion within normal limits other than his buttocks pain. IMPRESSION 1. Disruption of his coloanal anastomosis with a pelvic abscess. 2. Abnormal CT scan with pelvic collection and air in the upper abdomen and left gutter, although, no definite abscess is seen three. 3. He has normal thick ileostomy drainage from his ileostomy which is pink. PLAN We are going to taken him to the operating room and examine his buttocks and rectum under anesthesia and insert a colonoscope to make sure that the rectum is alive. Also I am going to drain his pelvis from below, quite possibly incising his ischiorectal space on both sides. I also told him that we may plan on laparotomy tonight if it appears that the colon is ischemic or there is a reason to enter his abdominal cavity tonight. Otherwise, we may do that at an interval when his overall physical condition is better with normal renal function. He has prerenal azotemia right now with a creatinine of 2.38 and BUN of 66. Jadon Roth MD JSOULEYMANE/DONNA /10:58 PM /11:39 PM
[2016-11-28] VITALS (16 sets, daily range): BP systolic 102–125; BP diastolic 51–59; PULSE 76–97; RESP 19–32; TEMP 99–100.4; O2SAT 96–100
[2016-11-28] MEDS ORDERED: DO NOT ADM ANY ANTICOAGULANT DRUGS PRN
[2016-11-28] MEDS: D5-LR + KCL 20 MEQ INJ 1,000 ML IV SCH ×5 (00:05→17:06)
[2016-11-28] MEDS ORDERED: NALOXONE HCL 0.4 MG/ML AMP IV PRN (00:15)
[2016-11-28] MEDS ORDERED: POTASSIUM CHLOR 40 MEQ PREMIX 100 ML IV PRN (00:15)
[2016-11-28] MEDS ORDERED: ENALAPRILAT 1.25 MG/ML VIAL IV PRN (00:15)
[2016-11-28] MEDS ORDERED: POTASSIUM CHLOR 20 MEQ PREMIX 100 ML IV PRN (00:15)
[2016-11-28] MEDS ORDERED: BENZOCAINE 6 MG/MENTHOL 10 MG LOZENGE BUCCAL PRN (00:15)
[2016-11-28] MEDS ORDERED: Post-op Orders (for Pharmacy) MISC XX ONE (00:15)
[2016-11-28] MEDS: PCA - TOTAL MG MORPHINE DELIVERED PER SHIFT SCH ×4 (00:15→22:00)
[2016-11-28] MEDS ORDERED: ONDANSETRON HCL 4 MG/2 ML VIAL IV PRN (00:15)
[2016-11-28] MEDS ORDERED: ACETAMINOPHEN/HYDROcodone 325 MG/5 MG TAB PO PRN ×2 (00:15)
[2016-11-28] MEDS ORDERED: ZOLPIDEM TARTRATE 5 MG TAB PO PRN (00:15)
[2016-11-28] MEDS ORDERED: SODIUM CHLORIDE 0.9% FLUSH 10 ML FLUSH IV FLUSH PRN (00:15)
[2016-11-28] MEDS ORDERED: ENALAPRILAT 2.5 MG/2 ML VIAL IV PRN (00:15)
[2016-11-28] MEDS ORDERED: oxyCODONE/ACETAMINOPHEN 5 MG/325 MG TAB PO PRN (00:15)
[2016-11-28 00:37] LABS: AUTOMATED NEUTROPHIL # 14.2 TH/MM3 (1.8-7.7); HEMATOCRIT 23.1 % (39.0-51.0); HEMO FLAGS DIFF FINAL; LYMPH % 1.2 % (9.0-44.0); LYMPHOCYTE # 0.2 TH/MM3 (1.0-4.8); MEAN CELL VOLUME 87.6 FL (80.0-100.0); MEAN CORPUSCULAR HEMOGLOBIN 28.9 PG (27.0-34.0); MONO % 4.5 % (0.0-8.0); NEUT % 94.3 % (16.0-70.0); PLATELET COUNT 293 TH/MM3 (150-450); RED BLOOD COUNT 2.63 MIL/MM3 (4.50-5.90); RED CELL DISTRIBUTION WIDTH 15.1 % (11.6-17.2)
[2016-11-28] MEDS: metroNIDAZOLE 500 MG INJ 100 ML IV SCH ×4 (00:58→20:28)
[2016-11-28 01:00] LABS: BICARBONATE 19.1 MEQ/L (21.0-32.0); POTASSIUM 4.1 MEQ/L (3.5-5.1)
[2016-11-28 01:13] LABS: CALCIUM-PROTEIN CORRECTED 7.9 MG/DL (8.5-10.1)
[2016-11-28] MEDS: DEXT 5%-NACL 0.9% 1000 ML INJ 1,000 ML IV SCH ×3 (01:42→18:00)
[2016-11-28] MEDS: METOCLOPRAMIDE HCL 10 MG/2 ML VIAL IVS SCH ×3 (05:08→18:02)
[2016-11-28] MEDS: PIPERACIL-TAZO 3.375 GM PREMIX 50 ML IV SCH ×3 (05:08→18:02)
[2016-11-28 09:12] LABS: AUTOMATED NEUTROPHIL # 11.1 TH/MM3 (1.8-7.7); BASOPHIL % 0.1 % (0.0-2.0); HEMATOCRIT 21.6 % (39.0-51.0); LYMPH % 1.4 % (9.0-44.0); LYMPHOCYTE # 0.2 TH/MM3 (1.0-4.8); MEAN CELL VOLUME 86.9 FL (80.0-100.0); MEAN CORPUSCULAR HGB CONC 33.4 % (32.0-36.0); MONO % 6.3 % (0.0-8.0); NEUT % 92.2 % (16.0-70.0); PLATELET COUNT 262 TH/MM3 (150-450); RED BLOOD COUNT 2.49 MIL/MM3 (4.50-5.90); RED CELL DISTRIBUTION WIDTH 15.5 % (11.6-17.2); WHITE BLOOD COUNT 12.1 TH/MM3 (4.0-11.0)
[2016-11-28 09:14] LABS: HEMO FLAGS AUTO DIFF
[2016-11-28 09:38] LABS: BICARBONATE 20.2 MEQ/L (21.0-32.0); POTASSIUM 3.9 MEQ/L (3.5-5.1)
[2016-11-28 09:41] LABS: BANDS 29 % (0-6); DOHLE BODIES PRESENT (NONE SEEN); NEUTROPHIL # MANUAL DIFF 11.7 TH/MM3 (1.8-7.7); POLYS (SEG NEUTROPHILS) 68 % (16-70); SCAN/DIFF FINAL DIFF MANUAL; TOXIC GRANULATION 1+ (NORMAL); WBC DIFF SAMPLE 100
[2016-11-28] MEDS: PANTOPRAZOLE SODIUM 40 MG VIAL IVP SCH (09:42)
[2016-11-28] MEDS: SODIUM CHLORIDE 0.9% FLUSH 10 ML FLUSH IV FLUSH SCH ×2 (10:01→20:28)
[2016-11-28 10:18] LABS: CALCIUM-PROTEIN CORRECTED 8.2 MG/DL (8.5-10.1)
--- NOTE | 2016-11-28 13:53 | MP ---
cc: MINESH ROTH M.D., PADMAJA M.D. Corrected Copy: 12/16/16 DATE OF SURGERY 11/27/16 PREOPERATIVE DIAGNOSIS Pelvic abscess. POSTOPERATIVE DIAGNOSIS Pelvic abscess. PROCEDURE 1. Exam under anesthesia. 2. Flexible sigmoidoscopy. 3. Washout of pelvic abscess with debridement and excision of anal canal. SURGEON Dr. Roth SUPERVISING FLOORPERSON Dr. Cabral ANESTHESIA General endotracheal. ESTIMATED BLOOD LOSS 25 cc. OPERATIVE FINDINGS This patient underwent a left colectomy with coloanal anastomosis and diverting ileostomy 3 weeks ago for a bulky low rectal carcinoma. He went home on the sixth postoperative day with a Mccormick catheter in place for urinary retention and was placed on Flomax. At some point thereafter the patient or urology removed the Mccormick catheter and he says he has been incontinent, in what sounds like overflow incontinence since then. He developed severe rectal and anal pain about a week ago. He had home health care for his new ileostomy but we did not receive any phone calls and he did not call us. He went to see Dr. Figueroa today and she him to the emergency room at [facility]. They did a CT scan of the abdomen showing bilateral ischiorectal abscesses and possible disruption of his coloanal anastomosis with a pelvic abscess and a possible abdominal component. On examination on transfer to [facility] his abdomen was completely benign. He did have fullness in the left lower quadrant and firmness there on palpation but no pain. The patient did have a rectal exam with what felt like complete disruption of his coloanal anastomosis with pelvic abscess present. He did have bilateral ischiorectal abscesses as well. Debridement of the ischiorectal spaces was done and the anal canal was removed as if this was an abdominal perineal resection. The colonoscope was used to do a flexible sigmoidoscopy to about 25 cm of his colon and it was found to be normal and nonischemic. OPERATIVE TECHNIQUE The patient was placed on table in the supine position, after adequate general tracheal anesthesia the legs were placed in exaggerated lithotomy position and the perineum was prepped and draped in usual manner. Colonoscope was inserted into the anal canal and the anastomosis was seen to be completely disrupted with this pelvic abscess. I was able to enter the colon and go to about 25 cm with the colonoscope and there was no ischemia of the colon and the colon was basically empty of any stool except a small amount of debris. I then inspected the pelvis with the colonoscope and aspirated pus from there. A sample of the pus was sent for culture and sensitivity. Next, we opened the ischiorectal fossas bilaterally and debrided it extensively of any de leon necrotic fat. Anterior to the colon the prostate did appear de leon and necrotic on its posterior surface, however, this was left alone. Also, the pelvis was then irrigated thoroughly once the debridement was done and the anal canal was fully removed circumferentially incising the levator muscles, removing the anus as this patient will not be able to undergo reanastomosis. At some point laparotomy will have to be done for a permanent colostomy which will be placed, probably in the next several days with exploration of the abdomen. I thought it was important to stabilize the patient medically first and drain his pelvic abscess and resuscitate him with fluids prior to doing a laparotomy. Once the debridement was done and the anus was removed the wound was packed with Kerlix and ___fluffs in dilute Betadine solution. ABDs were placed and mesh panties. Sponge, needle and instrument counts were reported as correct. Estimated blood loss was 25 cc. The patient tolerated the procedure well and left the operating room in good condition. MD VENKATESH Rutledge/DONNA /12:23 AM /8:19 AM
--- NOTE | 2016-11-28 16:39 | HHI.PR ---
Subjective Remarks Looks much better. No N or V. Stooling. Denies abdominal pain. Much less buttocks pain. Objective Vital Signs Date Time Temp Pulse Resp B/P Pulse Ox O2 Delivery O2 Flow Rate FiO2 11/28/16 16:00 86 11/28/16 16:00 99.8 84 26 119/59 100 11/28/16 14:00 97 11/28/16 14:00 30 11/28/16 12:00 93 11/28/16 12:00 99.5 84 25 102/51 99 11/28/16 10:00 82 11/28/16 08:00 92 11/28/16 08:00 100.4 92 23 111/59 98 11/28/16 07:00 98 Nasal Cannula 2.50 11/28/16 06:00 90 11/28/16 05:07 20 11/28/16 04:51 100 Nasal Cannula 3.00 11/28/16 04:00 76 11/28/16 04:00 99.0 81 19 104/53 100 11/28/16 02:00 87 11/28/16 00:45 92 22 118/57 100 Nasal Cannula 3 11/28/16 00:30 94 20 97/52 98 Nasal Cannula 3 11/28/16 00:15 99 16 98/42 93 Nasal Cannula 3 11/28/16 00:10 99.1 100 34 105/50 99 Nasal Cannula 4 11/27/16 21:45 95 Nasal Cannula 5.00 11/27/16 21:45 102 I/O 11/27/16 11/27/16 11/27/16 11/28/16 11/28/16 11/28/16 07:00 15:00 23:00 07:00 15:00 23:00 Intake Total 3941 ml 1301 ml Output Total 3000 ml 1200 ml Balance 941 ml 101 ml Intake Oral 200 ml IV Total 1941 ml 1101 ml Other 2000 ml Output Urine Total 2000 ml 1000 ml Stool Total 100 ml 200 ml Estimated Blood Loss 100 ml Other 800 ml Result Diagram: 11/28/16 0841 11/28/16 0841 Objective Remarks VS-S Abd: Benign. Less firmness over LLQ. I&Os: Excellent Labs: Improving Assessment and Plan Assessment and Plan Stable POD#1 Will plan on perineal dressing change under MAC in OR in AM May repeat CT tomorrow to assess abdomen. Will likely need laparotomy to create Colostomy. Unsure of timing at this time Jadon Roth MD Nov 28, 2016 16:39
[2016-11-28] MEDS ORDERED: GELATIN 12 MM/7 MM FOAM ONE (18:20)
[2016-11-28] MEDS: TAMSULOSIN HCL 0.4 MG CAP PO SCH (20:28)
[2016-11-28 22:09] LABS: APTT (PATIENT) 33.1 SEC (24.3-30.1); INTERNATIONAL NORMALIZED RATIO 1.2 RATIO; PROTHROMBIN TIME - PATIENT 13.4 SEC (9.8-11.6)
[2016-11-29] VITALS (18 sets, daily range): BP systolic 104–149; BP diastolic 57–74; PULSE 72–88; RESP 16–34; TEMP 97.8–99.7; O2SAT 94–99
[2016-11-29] MEDS: METOCLOPRAMIDE HCL 10 MG/2 ML VIAL IVS SCH ×4 (00:08→18:01)
[2016-11-29] MEDS: PIPERACIL-TAZO 3.375 GM PREMIX 50 ML IV SCH ×4 (00:08→18:01)
[2016-11-29] MEDS: D5-LR + KCL 20 MEQ INJ 1,000 ML IV SCH ×4 (00:09→20:35)
[2016-11-29] MEDS: metroNIDAZOLE 500 MG INJ 100 ML IV SCH ×4 (00:09→18:01)
[2016-11-29] MEDS: DEXT 5%-NACL 0.9% 1000 ML INJ 1,000 ML IV SCH ×2 (00:09→06:23)
[2016-11-29 04:28] LABS: BASOPHIL % 0.1 % (0.0-2.0); EOSINOPHIL % 0.1 % (0.0-4.0); HEMATOCRIT 24.1 % (39.0-51.0); HEMO FLAGS DIFF FINAL; LYMPH % 2.3 % (9.0-44.0); LYMPHOCYTE # 0.2 TH/MM3 (1.0-4.8); MEAN CELL VOLUME 88.7 FL (80.0-100.0); MEAN CORPUSCULAR HEMOGLOBIN 29.2 PG (27.0-34.0); MEAN CORPUSCULAR HGB CONC 32.9 % (32.0-36.0); MONO % 9.2 % (0.0-8.0); NEUT % 88.3 % (16.0-70.0); PLATELET COUNT 224 TH/MM3 (150-450); RED BLOOD COUNT 2.72 MIL/MM3 (4.50-5.90); RED CELL DISTRIBUTION WIDTH 15.3 % (11.6-17.2); WHITE BLOOD COUNT 9.1 TH/MM3 (4.0-11.0)
[2016-11-29] MEDS: PCA - TOTAL MG MORPHINE DELIVERED PER SHIFT SCH ×3 (05:16→22:00)
[2016-11-29 05:29] LABS: BICARBONATE 20.8 MEQ/L (21.0-32.0)
[2016-11-29] MEDS ORDERED: BUPIVACAINE HCL PF 0.5% 30 ML VIAL ONE (05:55)
[2016-11-29 06:01] LABS: CALCIUM-PROTEIN CORRECTED 8.3 MG/DL (8.5-10.1)
[2016-11-29] MEDS ORDERED: BUPIVACAINE/EPINEPHRINE 0.5% 50 ML VIAL ONE (07:35)
[2016-11-29] MEDS: SODIUM CHLORIDE 0.9% FLUSH 10 ML FLUSH IV FLUSH SCH ×2 (08:49→21:47)
[2016-11-29] MEDS: PANTOPRAZOLE SODIUM 40 MG VIAL IVP SCH (08:49)
--- NOTE | 2016-11-29 08:53 | HHI.PR ---
Subjective Remarks Pt with much less pain. Dressing change in OR revealed copious pus. No stool. Irrigated, repacked. Objective Vital Signs Date Time Temp Pulse Resp B/P Pulse Ox O2 Delivery O2 Flow Rate FiO2 11/29/16 07:00 97 Nasal Cannula 2.50 11/29/16 06:00 76 11/29/16 05:16 25 11/29/16 04:00 98.9 76 20 116/59 94 11/29/16 04:00 76 11/29/16 02:00 88 11/29/16 00:00 85 11/29/16 00:00 99.0 80 32 139/62 99 11/28/16 22:00 90 11/28/16 22:00 23 11/28/16 20:15 96 11/28/16 20:00 87 11/28/16 20:00 99.8 88 32 102/55 99 11/28/16 19:00 98 Nasal Cannula 2.50 11/28/16 18:00 94 11/28/16 17:55 99.9 95 29 125/57 96 11/28/16 17:40 99.7 88 28 110/54 100 11/28/16 16:00 86 11/28/16 16:00 99.8 84 26 119/59 100 11/28/16 14:00 97 11/28/16 14:00 30 11/28/16 12:00 93 11/28/16 12:00 99.5 84 25 102/51 99 11/28/16 10:00 82 11/28/16 09:59 99 21 I/O 11/28/16 11/28/16 11/28/16 11/29/16 11/29/16 11/29/16 07:00 15:00 23:00 07:00 15:00 23:00 Intake Total 3941 ml 1301 ml 1845 ml 914 ml Output Total 3000 ml 1200 ml 1100 ml 900 ml Balance 941 ml 101 ml 745 ml 14 ml Intake Oral 200 ml 240 ml IV Total 1941 ml 1101 ml 1105 ml 914 ml Packed Cells 500 ml Other 2000 ml Output Urine Total 2000 ml 1000 ml 1000 ml 800 ml Stool Total 100 ml 200 ml 100 ml 100 ml Estimated Blood Loss 100 ml Other 800 ml Result Diagram: 11/29/16 03311/29/16331 Objective Remarks VS-S Abd: Benign. Non tender.Less firmness over LLQ. I&Os: Excellent Labs: Transfused yesterday, will need 2 more units today. Assessment and Plan Assessment and Plan Stable POD#2 Perineal dressing change under MAC in OR done this AM Repeat CT today. Will likely need laparotomy to create Colostomy and further drain abdominal component. Repeat CT this AM with oral and IV contrast. Laparotomy depending on CT and clinical course. Jadon Roth MD Nov 29, 2016 08:53
[2016-11-29] MEDS ORDERED: DIATRIZOATE MEGLUM/DIATRIZOATE SOD 9 ML CUP PO ONE (09:15)
[2016-11-29] MEDS ORDERED: PROPOFOL 200 MG/20 ML AMP IV ONE (10:42)
[2016-11-29] MEDS ORDERED: IOHEXOL 350 MG/ML 10 ML VIAL (for RAD DIAG) IV ONE (11:26)
--- NOTE | 2016-11-29 11:48 | HHI.PR ---
Subjective . Large left anterior abscess tracking up to pancreatic tail and lesser sac. D/W Dr Vargas. He will drain his major portion of abscess to see if remainder will drain as well. Probably re scan on Thursday with only oral contrast. Jadon Roth MD Nov 29, 2016 11:48
--- NOTE | 2016-11-29 11:50 | RADRPT ---
EXAM DATE/TIME: 11/29/2016 11:23 [facility] COMPARISON: No previous studies available for comparison. INDICATIONS : Status post abscess drain. IV CONTRAST: 90 cc Omnipaque 350 (iohexol) IV ORAL CONTRAST: Prescribed oral contrast ingested. RADIATION DOSE: 15.67 CTDIvol (mGy) MEDICAL HISTORY : Gastroesophageal reflux disease. Carcinoma, colon. SURGICAL HISTORY : hernia repair, ileostomy ENCOUNTER: Initial ACUITY: 1 day PAIN SCALE: 0/10 LOCATION: Bilateral abdomen TECHNIQUE: Volumetric scanning of the abdomen and pelvis was performed. Using automated exposure control and ad justment of the mA and/or kV according to patient size, radiation dose was kept as low as reasonably achievable to obtain optimal diagnostic quality images. DICOM format image data is available electro nically for review and comparison. FINDINGS: LOWER LUNGS: Bilateral pleural effusions right greater left. Bibasilar atelectasis. LIVER: Homogeneous density without lesion. There is no dilation of the biliary tree. No calcified gallston es. Tiny amount of fluid around the liver. SPLEEN: Normal size without lesion. PANCREAS: Within normal limits. KIDNEYS: Normal in size and shape. There is no mass, stone or hydronephrosis. ADRENAL GLANDS: Within normal limits. VASCULAR: There is no aortic aneurysm. BOWEL/MESENTERY: There are numerous small loculated areas of fluid and air in the perirectal fat without a drainable c ollection. In the anterior left pelvis there is a 12.1 x 4.0 cm collection a combination of air and f luid. The fluid dissects inferolaterally and extends into a small elongated more cephalad collection measuring 2 x 3 cm.. there is an ileostomy in the right midabdomen without complications. The colon is decompressed. The small bowel is unremarkable. There is a tiny amount of fluid in the lesser sac with a small amount of air within it. I collec tion is 4.6 x 1.8 cm. I believe originates from the retroperitoneum inferiorly. ABDOMINAL WALL: Within normal limits. Clips in the intra-abdominal wall consistent with hernia repair RETROPERITONEUM: There is no lymphadenopathy. BLADDER: No wall thickening or mass. REPRODUCTIVE: Within normal limits. INGUINAL: There is no lymphadenopathy or hernia. MUSCULOSKELETAL: Within normal limits for patient age. CONCLUSION: There are numerous small loculated areas of fluid and air in the perirectal fat without a drainable c ollection. In the anterior left pelvis there is a 12.1 x 4.0 cm collection a combination of air and f luid. The fluid dissects inferolaterally and extends into a small elongated more cephalad collection measuring 2 x 3 cm.. there is an ileostomy in the right midabdomen without complications. The colon is decompressed. The small bowel is unremarkable. There is a tiny amount of fluid in the lesser sac with a small amount of air within it. I collec tion is 4.6 x 1.8 cm. I believe originates from the retroperitoneum inferiorly . Khalif Fitzgerald MD on November 29, 2016 at 11:34 Board Certified Radiologist. This report was verified electronically.
--- NOTE | 2016-11-29 15:09 | RADRPT ---
EXAM DATE/TIME: 11/29/2016 15:02 [facility] COMPARISON: No previous studies available for comparison. INDICATIONS : PICC line placement. MEDICAL HISTORY : Gastroesophageal reflux disease. SURGICAL HISTORY : None. ENCOUNTER: Initial ACUITY: 1 day PAIN SCORE: 0/10 LOCATION: Bilateral chest FINDINGS: A single view of the chest demonstrates the lungs to be symmetrically aerated without evidence of mas s, infiltrate or effusion. The cardiomediastinal contours are unremarkable. Right-sided PICC line wi th tip in the cavoatrial junction. Right-sided portacatheter seen with tip in the SVC. Osseous struct ures are intact. CONCLUSION: Adequate placement of right-sided PICC line. Ochoa Chavez MD on November 29, 2016 at 15:07 Board Certified Radiologist. This report was verified electronically.
[2016-11-29] MEDS ORDERED: fentaNYL CITRATE 250 MCG/5 ML AMP ONE (19:11)
[2016-11-29] MEDS ORDERED: MIDAZOLAM HCL 5 MG/5 ML VIAL ONE (19:11)
--- NOTE | 2016-11-29 19:31 | PD.RAD ---
Post CT Procedure Prog Note Pre Procedure Diagnosis: (1) Abscess Post Procedure Diagnosis: (1) Abscess Procedure Date: Nov 29, 2016 Supervising Radiologist: Jg Martinez Anesthesia: Conscious Sedation Plan of Activity Patient to Unit: Nursing Unit Patient Condition: Good Additional Comments: Placed 12F drain in lower abd abscess See PACS Report for procedural detail/treatment Jg Martinez MD Nov 29, 2016 19:31
[2016-11-29] MEDS: oxyCODONE/ACETAMINOPHEN 10 MG/325 MG TAB PO PRN (20:25)
[2016-11-29] MEDS: TAMSULOSIN HCL 0.4 MG CAP PO SCH (20:25)
[2016-11-29] MEDS: SODIUM CHLORIDE 0.9% 10 ML VIAL IRRIGATION SCH (21:00)
[2016-11-29] MEDS: FAT EMULSION 20% INJ 250 ML (@10 mls/hr) IV SCH (21:47)
[2016-11-29] MEDS ORDERED: FOLIC ACID IV ONE (22:00)
[2016-11-29] MEDS ORDERED: MULTIVITAMIN IV ONE (22:00)
[2016-11-29] MEDS ORDERED: INSULIN HUMAN REGULAR IV ONE (22:00)
[2016-11-29] MEDS ORDERED: [UNRECOGNIZED DRUG - OTHER] IV ONE (22:00)
[2016-11-30] VITALS (11 sets, daily range): BP systolic 119–143; BP diastolic 57–79; PULSE 64–81; RESP 14–24; TEMP 98–98.3; O2SAT 93–99
[2016-11-30] MEDS: METOCLOPRAMIDE HCL 10 MG/2 ML VIAL IVS SCH ×5 (00:07→23:33)
[2016-11-30] MEDS: metroNIDAZOLE 500 MG INJ 100 ML IV SCH ×4 (00:23→18:17)
[2016-11-30] MEDS: oxyCODONE/ACETAMINOPHEN 10 MG/325 MG TAB PO PRN ×5 (00:38→23:33)
[2016-11-30] MEDS: MORPHINE SULFATE 30 MG/30 ML PCA IV SCH (00:38)
[2016-11-30 04:22] LABS: BASOPHIL % 0.2 % (0.0-2.0); EOSINOPHIL % 0.5 % (0.0-4.0); HEMO FLAGS DIFF FINAL; LYMPH % 4.3 % (9.0-44.0); LYMPHOCYTE # 0.3 TH/MM3 (1.0-4.8); MEAN CELL VOLUME 86.6 FL (80.0-100.0); MEAN CORPUSCULAR HEMOGLOBIN 29.6 PG (27.0-34.0); MEAN CORPUSCULAR HGB CONC 34.2 % (32.0-36.0); MONO % 9.7 % (0.0-8.0); NEUT % 85.3 % (16.0-70.0); PLATELET COUNT 179 TH/MM3 (150-450); RED BLOOD COUNT 3.23 MIL/MM3 (4.50-5.90)
[2016-11-30 04:59] LABS: BICARBONATE 23.5 MEQ/L (21.0-32.0); POTASSIUM 4.2 MEQ/L (3.5-5.1)
[2016-11-30] MEDS: PIPERACIL-TAZO 3.375 GM PREMIX 50 ML IV SCH ×3 (05:34→11:28)
[2016-11-30] MEDS: PCA - TOTAL MG MORPHINE DELIVERED PER SHIFT SCH ×3 (06:00→22:21)
--- NOTE | 2016-11-30 07:01 | MP ---
cc: JENISE ROTH DATE OF SURGERY: 11/29/2016 PREOPERATIVE DIAGNOSIS: Pelvic abscess. POSTOPERATIVE DIAGNOSIS: Pelvic abscess. OPERATION: Washout and repacking of pelvic abscess. Dressing change. SURGEON Dr. Roth. ESTIMATED BLOOD LOSS: Minimal OPERATIVE FINDINGS This patient underwent a full left colectomy with rectal resection and coloanal anastomosis with a diverting ileostomy about 3 weeks ago. Postoperatively the patient did well in the hospital and was discharged from the hospital and he had not been back to the office for two weeks since his discharge. He said almost immediately after getting home he developed perineal pain and obviously developed a leak of his anastomosis. His stool was diverted through his ileostomy so he had no stool drainage and he developed a large pelvic abscess that caused dehiscence of his anastomosis. His pelvic abscess was drained two days ago and there is some possible component of abdominal abscess as well. He was brought back to the operating room under MAC anesthesia for dressing change and pelvic irrigation. At irrigation, he was found to have copious amounts of purulent discharge from his wound. It seemed to be emanating from the left side of the stump of the descending colon that is present in the pelvis. I was able to digitally palpate up along that area and there may well be an abdominal component here based on the CT scan from two days ago. Nevertheless the wound was irrigated thoroughly with saline solution with dilute Betadine and the copious drainage from above seemed to stop. The perineal tissue all looked good. There was no necrotic tissue left. The area posterior to the prostate was still white with old necrosis but this area again was not debrided. Once the irrigations were done, a 4 inch Kerlix soaked in saline and dilute Betadine solution was packed up into the pelvic abscess. Breast fluffs were also placed on the superficial portion of the wound and mesh panties were placed. OPERATIVE TECHNIQUE The patient was placed on the table in the supine position. After adequate monitored anesthesia care, the legs were placed in exaggerated lithotomy position and the perineal dressing was removed. There was copious amounts of purulent drainage. No stool was seen. The colon stump was identified and the wound was widely opened. There was no areas of necrosis left. The most copious amount of pus seen to be coming from the left side of the colonic stump and it was palpated and irrigated thoroughly with dilute Betadine saline solution and it seemed to stop. The Yankauer suction was placed up in this area and seen to aspirate this area. It was further irrigated with at least a liter of two of saline solution and then the wound was packed with Betadine soaked Kerlix gauze and breast fluffs. Dressings were applied. Sponge, needle, instrument counts were reported as correct. The estimated blood loss was minimal. The patient tolerated the procedure well and left the operating room in good condition. MD VENKATESH Rutledge/DANI /8:47 AM /6:54 AM
--- NOTE | 2016-11-30 08:19 | HHI.PR ---
Subjective Remarks Pt with much less pain. Abscess drained late yesterday Objective Vital Signs Date Time Temp Pulse Resp B/P Pulse Ox O2 Delivery O2 Flow Rate FiO2 11/30/16 06:00 65 11/30/16 06:00 18 11/30/16 04:00 98.1 70 18 137/77 98 11/30/16 04:00 75 11/30/16 02:00 64 11/30/16 00:38 16 11/30/16 00:00 81 11/30/16 00:00 98.3 74 17 119/57 97 11/29/16 22:00 72 11/29/16 22:00 17 11/29/16 20:14 96 21 11/29/16 20:00 98.8 78 16 134/74 96 11/29/16 20:00 74 11/29/16 20:00 95 Nasal Cannula 2.00 11/29/16 18:00 74 11/29/16 16:00 98.8 74 17 136/64 94 11/29/16 16:00 74 11/29/16 15:15 98.8 74 26 124/64 99 11/29/16 15:00 99.7 75 34 133/62 97 11/29/16 14:00 75 11/29/16 14:00 34 11/29/16 12:05 99.0 77 30 149/65 95 11/29/16 12:00 79 11/29/16 12:00 99.0 79 30 128/62 97 11/29/16 11:50 99.0 79 30 128/62 99 11/29/16 10:35 97 21 11/29/16 10:00 84 I/O 11/29/16 11/29/16 11/29/16 11/30/16 11/30/16 11/30/16 07:00 15:00 23:00 07:00 15:00 23:00 Intake Total 914 ml 2177 ml 965 ml 1391 ml Output Total 900 ml 1100 ml 1275 ml 855 ml Balance 14 ml 1077 ml -310 ml 536 ml Intake Oral 550 ml 650 ml 300 ml IV Total 914 ml 1127 ml 65 ml 701 ml TPN/PPN 315 ml Lipid 75 ml Packed Cells 500 ml 250 ml Output Urine Total 800 ml 250 ml 925 ml 650 ml Stool Total 100 ml 850 ml 250 ml 150 ml Drainage Total 100 ml 55 ml Result Diagram: 11/30/1639911/30/16399 Objective Remarks VS-S Abd: Benign. Non tender. 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 Will likely need laparotomy to create Colostomy at some point depending on adequacy of CT guided drain. Repeat CT tomorrow with PO contrast only Jadon Roth MD Nov 30, 2016 08:19
[2016-11-30] MEDS: PANTOPRAZOLE SODIUM 40 MG VIAL IVP SCH (08:59)
[2016-11-30] MEDS: SODIUM CHLORIDE 0.9% FLUSH 10 ML FLUSH IV FLUSH SCH ×2 (09:00→20:08)
[2016-11-30] MEDS: SODIUM CHLORIDE 0.9% 10 ML VIAL IRRIGATION SCH ×2 (09:00→20:08)
[2016-11-30] MEDS ORDERED: PROPOFOL 200 MG/20 ML AMP IV ONE (10:49)
[2016-11-30] MEDS ORDERED: LACTATED RINGER'S 1000 ML INJ 1,000 ML IV ONE (10:49)
[2016-11-30] MEDS ORDERED: fentaNYL CITRATE 250 MCG/5 ML AMP ONE (13:06)
[2016-11-30] MEDS: cefTRIAXone INJ 1,000 MG in SODIUM CHLORIDE 0.9% INJ 100 ML IV SCH (13:32)
[2016-11-30] MEDS: D5-LR + KCL 20 MEQ INJ 1,000 ML IV SCH ×2 (18:17→23:33)
[2016-11-30] MEDS ORDERED: FOLIC ACID IV SCH (20:00)
[2016-11-30] MEDS ORDERED: [UNRECOGNIZED DRUG - OTHER] IV SCH (20:00)
[2016-11-30] MEDS ORDERED: INSULIN HUMAN REGULAR IV SCH (20:00)
[2016-11-30] MEDS ORDERED: MULTIVITAMIN IV SCH (20:00)
[2016-11-30] MEDS: FAT EMULSION 20% INJ 250 ML (@10 mls/hr) IV SCH (20:05)
[2016-11-30] MEDS: MULTIVITAMIN INJ 10 ML, FOLIC ACID INJ 1 MG, INSULIN HUMAN REGULAR INJ 20 UNITS in AMIN... IV SCH (20:07)
[2016-11-30] MEDS: TAMSULOSIN HCL 0.4 MG CAP PO SCH (20:08)
[2016-12-01] VITALS (11 sets, daily range): BP systolic 119–140; BP diastolic 58–66; PULSE 66–82; RESP 16–23; TEMP 97.7–98.8; O2SAT 94–96
[2016-12-01] MEDS: metroNIDAZOLE 500 MG INJ 100 ML IV SCH ×4 (01:30→18:21)
[2016-12-01] MEDS: cefTRIAXone INJ 1,000 MG in SODIUM CHLORIDE 0.9% INJ 100 ML IV SCH ×2 (02:40→15:24)
[2016-12-01] MEDS: METOCLOPRAMIDE HCL 10 MG/2 ML VIAL IVS SCH ×3 (05:20→18:21)
[2016-12-01] MEDS: oxyCODONE/ACETAMINOPHEN 10 MG/325 MG TAB PO PRN (05:29)
[2016-12-01] MEDS: PCA - TOTAL MG MORPHINE DELIVERED PER SHIFT SCH ×3 (05:48→22:27)
[2016-12-01 07:14] LABS: AUTOMATED NEUTROPHIL # 6.9 TH/MM3 (1.8-7.7); BASOPHIL % 0.4 % (0.0-2.0); EOSINOPHIL # 0.1 TH/MM3 (0-0.4); EOSINOPHIL % 0.9 % (0.0-4.0); HEMATOCRIT 29.4 % (39.0-51.0); HEMO FLAGS DIFF FINAL; LYMPH % 4.6 % (9.0-44.0); LYMPHOCYTE # 0.4 TH/MM3 (1.0-4.8); MEAN CELL VOLUME 85.5 FL (80.0-100.0); MEAN CORPUSCULAR HEMOGLOBIN 29.2 PG (27.0-34.0); MEAN CORPUSCULAR HGB CONC 34.1 % (32.0-36.0); MONO % 7.5 % (0.0-8.0); NEUT % 86.6 % (16.0-70.0); PLATELET COUNT 188 TH/MM3 (150-450); RED BLOOD COUNT 3.44 MIL/MM3 (4.50-5.90)
[2016-12-01 07:34] LABS: BICARBONATE 24.3 MEQ/L (21.0-32.0); POTASSIUM 4.3 MEQ/L (3.5-5.1)
[2016-12-01 07:49] LABS: CALCIUM-PROTEIN CORRECTED 8.3 MG/DL (8.5-10.1)
--- NOTE | 2016-12-01 07:49 | RADRPT ---
EXAM DATE/TIME: 11/29/2016 19:13 [facility] COMPARISON: No previous studies available for comparison. INDICATIONS : Left lower quadrant abscess. SEDATION TIME: 15 minutes MEDICATION(S): 1.) 0.5 mg midazolam (Versed) IV DEVICE(S): 1.) 10 Fr Skater Fluid was sent for laboratory ordered studies. MEDICAL HISTORY : Carcinoma, colon. Gastroesophageal reflux disease. SURGICAL HISTORY : Colostomy. hernia repair ENCOUNTER: Subsequent ACUITY: 2 days PAIN SCORE: 7/10 LOCATION: Left lower quadrant PROCEDURE: 1.) Conscious sedation with continuous EKG and oximetry monitoring. 2.) EKG and oximetry remained stable throughout the procedure. PROCEDURE : 1. CT guided drainage of left lower quadrant abdominal abscess 2. Conscious sedation with continuous EKG and oximetry monitoring. The risks, benefits and alternatives to the procedure were explained and verbal and written consent w as obtained. Using automated exposure control and adjustment of the mA and/or kV according to patient size, radiation dose was kept as low as reasonably achievable to obtain optimal diagnostic quality i mages. The site was prepped in sterile fashion. Full sterile technique was used, including cap, ma sk, sterile gloves and gown and a large sterile sheet. Hand hygiene and 2% chlorhexidine and/or beta dine/alcohol prep was utilized per protocol for cutaneous antisepsis. The skin and subcutaneous tiss ues were infiltrated with local anesthetic solution. DICOM format image data is available electronic ally for review and comparison. Using CT guidance the prescribed site was localized. 18 gauge Atkinson was advanced into the abscess c avity. Short Garcia wire was then coiled in the cavity. Tract was serially dilated and 10 [place] skate r catheter was advanced over the wire and formed into position. 10 cc of purulent material was aspira wendy and submitted for laboratory analysis. Catheter was then connected to the coronary and suction ba g and secured to the skin. A postprocedural CT examination demonstrated well-positioned catheter with out evidence for complication. The patient tolerated the procedure well and there were no complications. Conscious sedation was per formed with the prescribed dosages and duration as above in the presence of an independent trained ra diology nurse to assist in the monitoring of the patient. EKG and oximetry remained stable throughou t the procedure. The patient tolerated the procedure well and there were no complications. The patient was sent to pos t anesthesia recovery in stable condition. CONCLUSION: Uncomplicated CT guided drainage. Jg Bozorgmanesh, MD on December 01, 2016 at 7:46 Board Certified Radiologist. This report was verified electronically.
--- NOTE | 2016-12-01 08:22 | MP ---
cc: JENISE ROTH DATE OF SURGERY: 11/30/2016 PREOPERATIVE DIAGNOSIS Perineal wound with pelvic abscess. POSTOPERATIVE DIAGNOSIS Perineal wound with pelvic abscess. PROCEDURE Perineal wound debridement and irrigation and dressing change. ANESTHESIA Monitored anesthesia care. SURGEON Dr. Roth. ESTIMATED BLOOD LOSS Minimal. OPERATIVE FINDINGS This patient had a pelvic abscess drained approximately 3 days ago and his perineal wound was left open and packed. The patient had a previous low anterior resection with colon anastomosis with subsequent leakage of the anastomosis and dehiscence of the anastomosis. The patient does have an ileostomy diversion but he developed a pelvic abscess and this was drained about 3 days ago. Since that time, we have brought him back for subsequent dressing changes and irrigations of his pelvis. He also had an intra-abdominal abscess drained yesterday with CT-guided drainage. On yesterday's dressing change he had a lot of purulence still oozing from the pelvic wounds with no clear source of where it was coming from. On today's exam under anesthesia he had much less purulent drainage, there was some present and some of the devitalized tissue was excised with electrocautery. The prostate plane still had some de leon-white devitalized tissue on the surface of the prostate and the midportion of the prostate was soft, however, this was not debrided or entered for fear of injuring the urethra. The remainder of the pelvis at the end of the procedure was clean without much in the way of purulence, it was irrigated thoroughly with dilute Betadine and saline solution and then packed with Kerlix and breast fluffs. OPERATIVE TECHNIQUE The patient was placed on the table in the supine position. After adequate monitored anesthesia care the legs were placed in exaggerated lithotomy position in candy-cane stirrups and the dressings were removed. The external dressings were much quill cleaner. The Kerlix wrapped which is around the colon which is pulled down into the pelvis still had some purulent drainage on it but it was not nearly the quantity of drainage running down out of the pelvis. The wounds were then explored digitally and then irrigated thoroughly with dilute Betadine and saline solution and then the wounds were debrided of any devascularized tissue. This was done with electrocautery and hemostasis was maintained throughout with electrocautery. The wounds were then packed again with dilute Betadine and saline soaked Kerlix packed up around the prostate plane and bilaterally around the colon located down in the pelvis. Once this was done the more superficial portion of the wounds were packed with breast fluffs soaked in dilute Betadine and saline solution as well. ABD and fishnet panties were applied. Sponge, needle and instrument counts were reported as correct. Estimated blood loss was minimal. The patient tolerated the procedure well and left the operating room in good condition. MD VENKATESH Rutledge/PEDRITO /1:13 PM /8:10 AM
[2016-12-01] MEDS ORDERED: DIATRIZOATE MEGLUM/DIATRIZOATE SOD 9 ML CUP PO ONE (09:00)
[2016-12-01] MEDS: SODIUM CHLORIDE 0.9% 10 ML VIAL IRRIGATION SCH ×2 (09:00→20:23)
[2016-12-01] MEDS: PANTOPRAZOLE SODIUM 40 MG VIAL IVP SCH (10:08)
[2016-12-01] MEDS: SODIUM CHLORIDE 0.9% FLUSH 10 ML FLUSH IV FLUSH SCH ×2 (10:09→20:23)
--- NOTE | 2016-12-01 10:11 | HHI.PR ---
Subjective Remarks Pt with much less pain, for f/u CT today to check adequacy of abscess drainage Objective Vital Signs Date Time Temp Pulse Resp B/P Pulse Ox O2 Delivery O2 Flow Rate FiO2 12/01/16 06:00 66 12/01/16 05:48 18 12/01/16 04:00 97.9 80 23 133/66 95 12/01/16 04:00 79 12/01/16 02:00 74 12/01/16 00:00 98.8 66 19 130/63 94 12/01/16 00:00 72 11/30/16 22:21 16 11/30/16 22:00 78 11/30/16 20:00 98.0 76 14 129/79 93 11/30/16 20:00 78 11/30/16 19:00 98 Room Air 11/30/16 18:00 73 11/30/16 16:00 98.0 66 24 122/60 98 11/30/16 16:00 66 11/30/16 14:33 25 11/30/16 14:00 77 11/30/16 14:00 22 I/O 11/30/16 11/30/16 11/30/16 12/01/16 12/01/16 12/01/16 07:00 15:00 23:00 07:00 15:00 23:00 Intake Total 1391 ml 1212 ml 1252 ml 929 ml Output Total 855 ml 1100 ml 1410 ml 1405 ml Balance 536 ml 112 ml -158 ml -476 ml Intake Oral 300 ml 240 ml 200 ml IV Total 701 ml 536 ml 1052 ml 385 ml TPN/PPN 315 ml 356 ml 467 ml Lipid 75 ml 80 ml 77 ml Output Urine Total 650 ml 1000 ml 950 ml 1400 ml Stool Total 150 ml 50 ml 450 ml Drainage Total 55 ml 50 ml 10 ml 5 ml Result Diagram: 12/01/1670012/01/16700 Objective Remarks VS-S Abd: Benign. Non tender. Drain LLQ with decreasing purulent drainage Rectum: Packing removed. Much less purulence. Repacked with saline wet guaze I&Os: Excellent Labs: OK-WBC down Assessment and Plan Assessment and Plan Stable POD#4 Perineal wound external dressing removed fish cleaner machine tender than yesterday Perineal dressing change today at bedside Will likely need laparotomy to create Colostomy at some point depending on adequacy of CT guided drain. Repeat CT today with PO contrast only Jadon Roth MD Dec 01, 2016 10:10
[2016-12-01] MEDS: MORPHINE SULFATE 30 MG/30 ML PCA IV SCH (18:22)
--- NOTE | 2016-12-01 19:07 | RADRPT ---
EXAM DATE/TIME: 12/01/2016 17:49 [facility] COMPARISON: CT ABSCESS DRAINAGE VISCERAL, November 29, 2016, 19:13. INDICATIONS : Evaluate abscesses ORAL CONTRAST: Prescribed oral contrast ingested. RADIATION DOSE: 10.23 CTDIvol (mGy) MEDICAL HISTORY : Carcinoma, rectal. SURGICAL HISTORY : None. Ileostomy ENCOUNTER: Initial ACUITY: 5/10 PAIN SCALE: 5/10 LOCATION: [place] TECHNIQUE: Volumetric scanning of the abdomen and pelvis was performed. Using automated exposure control and adjustment of the mA and/or kV according to patient size, radiation dose was kept as low as reasonably achievable to obtain optimal diagnostic quality images. DICOM format image data is av ailable electronically for review and comparison. FINDINGS: Small bilateral pleural effusions are evident with nodular opacities in both lung base is.. Trace ascites is evident. Gallbladder is unremarkable. Spleen is prominent. Pancreas is unrem arkable. The right and left kidneys are unremarkable. There is a drain in the left mid abdomen with residual fluid remaining around the drain. There is no free air. The Trace ascites is present in the pelvis. CONCLUSION: Residual abscess around the drain. Drain can either be flushed or upsized. Prasad Peterson MD FACR on December 01, 2016 at 18:13 Board Certified Radiologist. This report was verified electronically.
[2016-12-01] MEDS: TAMSULOSIN HCL 0.4 MG CAP PO SCH (20:23)
[2016-12-01] MEDS: FAT EMULSION 20% INJ 250 ML (@10 mls/hr) IV SCH (20:24)
[2016-12-01] MEDS: MULTIVITAMIN INJ 10 ML, FOLIC ACID INJ 1 MG, INSULIN HUMAN REGULAR INJ 20 UNITS in AMIN... IV SCH (21:02)
[2016-12-02] VITALS (10 sets, daily range): BP systolic 111–132; BP diastolic 59–73; PULSE 56–78; RESP 18–30; TEMP 97.7–98.7; O2SAT 95–97
[2016-12-02] MEDS: METOCLOPRAMIDE HCL 10 MG/2 ML VIAL IVS SCH ×4 (00:02→18:11)
[2016-12-02] MEDS: FUROSEMIDE 20 MG/2 ML VIAL IV PUSH SCH ×3 (00:02→20:57)
[2016-12-02] MEDS: metroNIDAZOLE 500 MG INJ 100 ML IV SCH ×4 (00:03→20:45)
[2016-12-02] MEDS: cefTRIAXone INJ 1,000 MG in SODIUM CHLORIDE 0.9% INJ 100 ML IV SCH ×2 (02:59→14:12)
[2016-12-02] MEDS: oxyCODONE/ACETAMINOPHEN 10 MG/325 MG TAB PO PRN ×2 (03:04→16:55)
[2016-12-02] MEDS: PCA - TOTAL MG MORPHINE DELIVERED PER SHIFT SCH ×3 (06:21→21:04)
[2016-12-02 06:35] LABS: AUTOMATED NEUTROPHIL # 7.8 TH/MM3 (1.8-7.7); BASOPHIL % 0.3 % (0.0-2.0); EOSINOPHIL # 0.1 TH/MM3 (0-0.4); EOSINOPHIL % 0.9 % (0.0-4.0); HEMATOCRIT 29.6 % (39.0-51.0); HEMO FLAGS DIFF FINAL; LYMPH % 4.9 % (9.0-44.0); LYMPHOCYTE # 0.4 TH/MM3 (1.0-4.8); MEAN CELL VOLUME 85.5 FL (80.0-100.0); MEAN CORPUSCULAR HEMOGLOBIN 28.9 PG (27.0-34.0); MEAN CORPUSCULAR HGB CONC 33.8 % (32.0-36.0); MONO % 6.7 % (0.0-8.0); NEUT % 87.2 % (16.0-70.0); PLATELET COUNT 183 TH/MM3 (150-450); RED BLOOD COUNT 3.47 MIL/MM3 (4.50-5.90); RED CELL DISTRIBUTION WIDTH 15.6 % (11.6-17.2); WHITE BLOOD COUNT 8.9 TH/MM3 (4.0-11.0)
[2016-12-02 07:01] LABS: BICARBONATE 28.9 MEQ/L (21.0-32.0)
[2016-12-02] MEDS: SODIUM CHLORIDE 0.9% 10 ML VIAL IRRIGATION SCH ×2 (08:43→20:59)
[2016-12-02] MEDS: PANTOPRAZOLE SODIUM 40 MG VIAL IVP SCH (08:43)
[2016-12-02] MEDS: SODIUM CHLORIDE 0.9% FLUSH 10 ML FLUSH IV FLUSH SCH ×2 (08:43→20:59)
--- NOTE | 2016-12-02 18:07 | HHI.PR ---
Subjective Remarks Pt with much less pain, f/u CT showed some residual fluid. D/W Dr Uzair Peterson and he will have drain pulled back about 4 cm to allow more drainage. They will continue to irrigate. Objective Vital Signs Date Time Temp Pulse Resp B/P Pulse Ox O2 Delivery O2 Flow Rate FiO2 12/02/16 16:00 98.0 66 18 111/59 95 12/02/16 16:00 66 12/02/16 14:00 67 12/02/16 14:00 18 12/02/16 12:00 77 12/02/16 12:00 98.1 77 30 130/62 97 12/02/16 10:00 78 12/02/16 08:00 97.7 56 20 126/60 96 12/02/16 08:00 76 12/02/16 07:00 93 Room Air 12/02/16 06:21 15 12/02/16 04:04 12 12/02/16 04:00 98.6 64 20 127/65 97 12/02/16 00:00 98.7 66 20 132/60 96 12/01/16 22:27 21 12/01/16 20:00 Room Air 12/01/16 20:00 70 12/01/16 20:00 98.4 71 21 135/63 96 12/01/16 18:36 20 12/01/16 18:22 18 I/O 12/01/16 12/01/16 12/01/16 12/02/16 12/02/16 12/02/16 07:00 15:00 23:00 07:00 15:00 23:00 Intake Total 929 ml 1472 ml 812 ml 1211 ml 1376 ml Output Total 1405 ml 1700 ml 1425 ml 2725 ml 2560 ml Balance -476 ml -228 ml -613 ml -1514 ml -1184 ml Intake Oral 600 ml 240 ml 400 ml IV Total 385 ml 296 ml 287 ml 433 ml 452 ml TPN/PPN 467 ml 492 ml 452 ml 461 ml 443 ml Lipid 77 ml 84 ml 73 ml 77 ml 81 ml Output Urine Total 1400 ml 1450 ml 1300 ml 2650 ml 2300 ml Stool Total 250 ml 75 ml 25 ml 250 ml Drainage Total 5 ml 0 ml 50 ml 50 ml 10 ml Result Diagram: 12/02/16 0610 12/02/16 0610 Objective Remarks VS-S Abd: Benign. Non tender. Drain LLQ with decreasing purulent drainage Rectum: Packing removed. Much less purulence. Repacked with saline wet to dry dressings I&Os: Excellent-good diuresis with Lasix Labs: OK Assessment and Plan Assessment and Plan Stable Perineal wound external dressing changed at bedside Will likely need laparotomy to create Colostomy at some point Transfer to [address] [place] [address]. Regular diet OOB ambulate with help Consult PT for deconditioning. Drain to be pulled back by Interventional Radiology today Jadon Roth MD Dec 02, 2016 18:07
[2016-12-02] MEDS: D5-LR + KCL 20 MEQ INJ 1,000 ML IV SCH (20:46)
[2016-12-02] MEDS: TAMSULOSIN HCL 0.4 MG CAP PO SCH (20:58)
[2016-12-02] MEDS: FAT EMULSION 20% INJ 250 ML (@10 mls/hr) IV SCH (22:27)
[2016-12-02] MEDS: MULTIVITAMIN INJ 10 ML, FOLIC ACID INJ 1 MG, INSULIN HUMAN REGULAR INJ 20 UNITS in AMIN... IV SCH (22:28)
[2016-12-03] VITALS (10 sets, daily range): BP systolic 101–128; BP diastolic 55–65; PULSE 74–89; RESP 16–19; TEMP 96.2–98.4; O2SAT 95–97
[2016-12-03] MEDS: METOCLOPRAMIDE HCL 10 MG/2 ML VIAL IVS SCH ×5 (00:18→22:38)
[2016-12-03] MEDS: metroNIDAZOLE 500 MG INJ 100 ML IV SCH ×4 (00:18→18:25)
[2016-12-03] MEDS: cefTRIAXone INJ 1,000 MG in SODIUM CHLORIDE 0.9% INJ 100 ML IV SCH ×2 (00:19→15:51)
[2016-12-03] MEDS: oxyCODONE/ACETAMINOPHEN 10 MG/325 MG TAB PO PRN ×6 (00:20→22:38)
[2016-12-03] MEDS: PCA - TOTAL MG MORPHINE DELIVERED PER SHIFT SCH ×3 (04:32→22:00)
[2016-12-03] MEDS: PANTOPRAZOLE SODIUM 40 MG VIAL IVP SCH (08:41)
[2016-12-03] MEDS: FUROSEMIDE 20 MG/2 ML VIAL IV PUSH SCH ×2 (08:41→18:25)
[2016-12-03] MEDS: SODIUM CHLORIDE 0.9% FLUSH 10 ML FLUSH IV FLUSH SCH ×2 (08:42→22:08)
[2016-12-03] MEDS: SODIUM CHLORIDE 0.9% 10 ML VIAL IRRIGATION SCH ×2 (08:42→22:09)
--- NOTE | 2016-12-03 08:59 | HHI.PR ---
Subjective Remarks Drainage less purulent appearing. Late today will be day 4 since drain placed. Objective Vital Signs Date Time Temp Pulse Resp B/P Pulse Ox O2 Delivery O2 Flow Rate FiO2 12/03/16 08:00 98.3 80 17 101/55 97 12/03/16 04:32 18 12/03/16 04:31 18 12/03/16 04:00 96.8 85 19 128/59 95 12/03/16 00:00 97.4 89 19 120/65 95 12/02/16 21:04 18 12/02/16 20:42 18 12/02/16 20:00 97.7 65 19 122/73 96 12/02/16 18:00 66 12/02/16 16:00 98.0 66 18 111/59 95 12/02/16 16:00 66 12/02/16 14:00 67 12/02/16 14:00 18 12/02/16 12:00 77 12/02/16 12:00 98.1 77 30 130/62 97 12/02/16 10:00 78 I/O 12/02/16 12/02/16 12/02/16 12/03/16 12/03/16 12/03/16 07:00 15:00 23:00 07:00 15:00 23:00 Intake Total 1211 ml 1376 ml 863 ml 954 ml 120 ml Output Total 2725 ml 2560 ml 630 ml 520 ml Balance -1514 ml -1184 ml 233 ml 434 ml 120 ml Intake Oral 240 ml 400 ml 60 ml 120 ml 120 ml IV Total 433 ml 452 ml 330 ml 470 ml TPN/PPN 461 ml 443 ml 408 ml 315 ml Lipid 77 ml 81 ml 65 ml 49 ml Output Urine Total 2650 ml 2300 ml 600 ml 400 ml Stool Total 25 ml 250 ml 0 ml 100 ml Drainage Total 50 ml 10 ml 30 ml 20 ml Result Diagram: 12/02/1610 12/02/16 0610 Objective Remarks VS-S Abd: Benign. Non tender. Drain LLQ with decreasing purulent drainage Rectum: Packing removed. Much less purulence. Repacked with saline wet to dry dressings I&Os: Excellent-good diuresis with Lasix Labs: none today Assessment and Plan Assessment and Plan Stable Perineal wound external dressing changed at bedside Will likely need laparotomy to create Colostomy at some point Regular diet. Encourage better PO intake. TPN increased. OOB ambulate with help Consult PT for deconditioning. Change dressing tomorrow in OR under Jadon Rock MD Dec 03, 2016 08:59
[2016-12-03] MEDS: MORPHINE SULFATE 30 MG/30 ML PCA IV SCH (12:18)
[2016-12-03] MEDS: D5-LR + KCL 20 MEQ INJ 1,000 ML IV SCH (18:55)
[2016-12-03] MEDS: FAT EMULSION 20% INJ 250 ML (@10 mls/hr) IV SCH (22:07)
[2016-12-03] MEDS: MULTIVITAMIN INJ 10 ML, FOLIC ACID INJ 1 MG, INSULIN HUMAN REGULAR INJ 20 UNITS in AMIN... IV-CENTRAL SCH (22:07)
[2016-12-03] MEDS: TAMSULOSIN HCL 0.4 MG CAP PO SCH (22:08)
[2016-12-04] MEDS: cefTRIAXone INJ 1,000 MG in SODIUM CHLORIDE 0.9% INJ 100 ML IV SCH ×2 (01:01→13:58)
[2016-12-04] MEDS: metroNIDAZOLE 500 MG INJ 100 ML IV SCH ×4 (01:02→18:26)
[2016-12-04] MEDS: oxyCODONE/ACETAMINOPHEN 10 MG/325 MG TAB PO PRN ×5 (03:23→21:05)
[2016-12-04 04:00] VITALS: BP 102/59; PULSE 73; RESP 19; TEMP 97.1; O2SAT 98
[2016-12-04] MEDS: METOCLOPRAMIDE HCL 10 MG/2 ML VIAL IVS SCH ×3 (05:44→18:26)
[2016-12-04] MEDS: PCA - TOTAL MG MORPHINE DELIVERED PER SHIFT SCH (05:44)
[2016-12-04 07:01] LABS: AUTOMATED NEUTROPHIL # 6.8 TH/MM3 (1.8-7.7); BASOPHIL % 0.5 % (0.0-2.0); EOSINOPHIL # 0.1 TH/MM3 (0-0.4); EOSINOPHIL % 1.2 % (0.0-4.0); HEMATOCRIT 30.4 % (39.0-51.0); HEMO FLAGS DIFF FINAL; LYMPH % 5.7 % (9.0-44.0); LYMPHOCYTE # 0.5 TH/MM3 (1.0-4.8); MEAN CELL VOLUME 86.2 FL (80.0-100.0); MEAN CORPUSCULAR HEMOGLOBIN 28.6 PG (27.0-34.0); MEAN CORPUSCULAR HGB CONC 33.1 % (32.0-36.0); MONO % 7.5 % (0.0-8.0); NEUT % 85.1 % (16.0-70.0); PLATELET COUNT 199 TH/MM3 (150-450); RED BLOOD COUNT 3.52 MIL/MM3 (4.50-5.90); RED CELL DISTRIBUTION WIDTH 15.1 % (11.6-17.2)
[2016-12-04 07:29] LABS: BICARBONATE 29.1 MEQ/L (21.0-32.0); POTASSIUM 4.1 MEQ/L (3.5-5.1)
[2016-12-04 07:37] VITALS: BP 92/55; PULSE 73; RESP 19; TEMP 98.3; O2SAT 97
[2016-12-04] MEDS: PANTOPRAZOLE SODIUM 40 MG VIAL IVP SCH (08:18)
[2016-12-04] MEDS: FUROSEMIDE 20 MG/2 ML VIAL IV PUSH SCH ×2 (08:18→18:26)
[2016-12-04] MEDS: SODIUM CHLORIDE 0.9% 10 ML VIAL IRRIGATION SCH ×2 (08:18→21:00)
[2016-12-04] MEDS: SODIUM CHLORIDE 0.9% FLUSH 10 ML FLUSH IV FLUSH SCH ×2 (08:19→21:20)
[2016-12-04] MEDS ORDERED: PROPOFOL 200 MG/20 ML AMP IV ONE (10:56)
[2016-12-04] MEDS ORDERED: ONDANSETRON HCL 4 MG/2 ML VIAL IV PUSH ONE (10:56)
[2016-12-04 12:00] VITALS: BP 108/58; PULSE 77; RESP 18; TEMP 98.5; O2SAT 95
[2016-12-04] MEDS ORDERED: SUGAMMADEX SODIUM 200 MG/2 ML VIAL IV PUSH ONE ×2 (15:06)
--- NOTE | 2016-12-04 15:56 | PD.OP ---
Operative Report Date of Surgery: Dec 04, 2016 Preoperative Diagnosis: (1) Prostate irregularity Postoperative Diagnosis: (1) Prostate irregularity Procedure: Examination under anesthesia Anesthesia: General Surgeon: Luis Miguel Grissom Field Hand(s): None Operation and Findings: Indication for procedure: Consult to evaluate this patient's prostate for possible fistula formation. Patient has a history of rectal CA and is status post chemotherapy, radiation therapy and radical surgery with multiple positive pelvic lymph nodes. Patient subsequently developed a pelvic abscess with breakdown of the rectoanal anastomosis. The area was opened and drained and the fecal stream diverted. Imaging studies included CT scanning that demonstrated a lucent area involving the mid posterior prostate concerning for possible fistula formation (CT images reviewed). Patient's Mccormick catheter has been draining clear yellow urine since insertion. Examination under anesthesia: Visual and digital examination of the prostate under anesthesia demonstrated a midline defect within the posterior prostate however there was no evidence of fistula formation. This area likely represents loss of prostatic tissue related to the radiation therapy and recent surgery. Recommendation: Maintain Mccormick catheter to gravity drainage for at least the next 3 months to allow adequate scarring and prevent fistula formation. The Mccormick catheter should be changed out every 3-4 weeks. Luis Miguel Grissom MD Dec 04, 2016 15:56
[2016-12-04] MEDS ORDERED: DO NOT ADM ANY ANTICOAGULANT DRUGS PRN (16:30)
[2016-12-04] MEDS: D5-LR + KCL 20 MEQ INJ 1,000 ML IV SCH (16:37)
--- NOTE | 2016-12-04 17:58 | MP ---
cc: MINESH ROTH MD DATE OF SURGERY 12/04/16 PREOPERATIVE DIAGNOSIS Perineal wound. POSTOPERATIVE DIAGNOSIS Perineal wound. PROCEDURE Exam under anesthesia with irrigation and dressing change of perineal wound. SURGEON Dr. Bruna Roth ESTIMATED BLOOD LOSS Minimal. OPERATIVE FINDINGS This patient underwent a low anterior resection coloanal anastomosis for a low rectal cancer 4 weeks ago. The patient had preoperative radiation therapy, chemotherapy. However, postoperatively about a week ago developed a large pelvic abscess. The patient eventually went to the 5-hour ER and was transferred here. We debrided the perineum and the anastomosis had totally dehisced and we excised the anus and he has a Mccormick catheter in place with a large perineal wound. The colon is present in the wound, but it is retracted somewhat. Daily dressing changes are being done. Today we went ahead and irrigated and changed the dressings. OPERATIVE TECHNIQUE The patient was placed on table in the supine position. After adequate general endotracheal anesthesia, the legs were placed in perineal lithotomy position and the perineum was prepped and draped in usual manner. The area was irrigated with saline solution and Betadine with saline solution dilute and irrigated. Dr. Trino Grissom came into the operating room to look at the posterior wall of the prostate which has a lucency on CT scan and a boggy feeling on palpation. Again, a Mccormick catheter is in place. Dr. Grissom recommended that the Mccormick catheter stay in place for 3 months. Once a wound was irrigated thoroughly with saline solution and cleaned, there was really no purulence present. The 6-inch Kerlix in saline and Betadine solution was packed up around the prostate and the lateral wall of the pelvis, especially the left side anteriorly, and this almost filled the wound. Breast fluffs were then placed on the outside and ___ panties were applied. Sponge, needle and counts were reported as correct. Estimated blood loss was minimal. The patient tolerated the procedure well and left the operating room in good condition. Minesh Roth MD JSOULEYMANE/ /3:55 PM /5:55 PM
[2016-12-04 20:00] VITALS: BP 110/67; PULSE 85; RESP 20; TEMP 97.2; O2SAT 95
[2016-12-04] MEDS: TAMSULOSIN HCL 0.4 MG CAP PO SCH (21:00)
[2016-12-04] MEDS: MULTIVITAMIN INJ 10 ML, FOLIC ACID INJ 1 MG, INSULIN HUMAN REGULAR INJ 20 UNITS in AMIN... IV-CENTRAL SCH (21:19)
[2016-12-04] MEDS: FAT EMULSION 20% INJ 250 ML (@10 mls/hr) IV SCH (23:40)
[2016-12-05] VITALS: BP 110/63; PULSE 82; RESP 20; TEMP 97.4; O2SAT 95
[2016-12-05] MEDS: METOCLOPRAMIDE HCL 10 MG/2 ML VIAL IVS SCH ×5 (01:08→22:55)
[2016-12-05] MEDS: metroNIDAZOLE 500 MG INJ 100 ML IV SCH ×4 (01:08→17:44)
[2016-12-05] MEDS: oxyCODONE/ACETAMINOPHEN 10 MG/325 MG TAB PO PRN ×6 (01:08→22:55)
[2016-12-05] MEDS: cefTRIAXone INJ 1,000 MG in SODIUM CHLORIDE 0.9% INJ 100 ML IV SCH ×2 (03:07→14:06)
[2016-12-05 04:00] VITALS: BP 109/66; PULSE 78; RESP 20; TEMP 96.2; TEMP 97.2; O2SAT 95
[2016-12-05 08:00] VITALS: BP 106/56; PULSE 74; RESP 17; TEMP 99.3; O2SAT 98
[2016-12-05] MEDS: SODIUM CHLORIDE 0.9% FLUSH 10 ML FLUSH IV FLUSH SCH ×2 (08:35→19:43)
[2016-12-05] MEDS: FUROSEMIDE 20 MG/2 ML VIAL IV PUSH SCH ×2 (08:35→17:43)
[2016-12-05] MEDS: PANTOPRAZOLE SODIUM 40 MG VIAL IVP SCH (08:35)
[2016-12-05] MEDS: SODIUM CHLORIDE 0.9% 10 ML VIAL IRRIGATION SCH ×2 (09:00→21:00)
[2016-12-05 12:00] VITALS: BP 112/69; PULSE 71; RESP 17; TEMP 98.4; O2SAT 98
--- NOTE | 2016-12-05 15:24 | HHI.PR ---
Subjective Remarks Drainage less purulent appearing. Objective Vital Signs Date Time Temp Pulse Resp B/P Pulse Ox O2 Delivery O2 Flow Rate FiO2 12/05/16 12:00 98.4 71 17 112/69 98 12/05/16 08:00 99.3 74 17 106/56 98 12/05/16 04:00 97.2 78 20 109/66 95 12/05/16 00:00 97.4 82 20 110/63 95 12/04/16 20:00 97.2 85 20 110/67 95 12/04/16 16:15 97.8 75 14 114/56 100 Room Air 12/04/16 16:00 75 14 101/54 100 Nasal Cannula 2 12/04/16 15:53 97.4 82 14 117/64 100 Nasal Cannula 2 I/O 12/04/16 12/04/16 12/04/16 12/05/16 12/05/16 12/05/16 06:59 14:59 22:59 06:59 14:59 22:59 Intake Total 1127 ml 707 ml 1108 ml 1933 ml 480 ml Output Total 1530 ml 2310 ml 603 ml 1650 ml Balance -403 ml -1603 ml 1108 ml 1330 ml -1170 ml Intake Oral 120 ml 0 ml 840 ml 480 ml IV Total 272 ml 149 ml 231 ml 307 ml TPN/PPN 599 ml 479 ml 557 ml 698 ml Lipid 136 ml 79 ml 70 ml 88 ml Other 250 ml Output Urine Total 1500 ml 2000 ml 303 ml 1650 ml Stool Total 0 ml 300 ml 300 ml 0 ml Drainage Total 30 ml 10 ml Result Diagram: 12/04/16 0550 12/04/16 0550 Objective Remarks VS-S Abd: Benign. Non tender. Drain LLQ with decreasing purulent drainage Rectum: Packing removed. Much less purulence. Repacked with saline wet to dry dressings I&Os: Excellent-good diuresis with Lasix Labs: none today Assessment and Plan Assessment and Plan Stable. D/W Dr Grissom. Will leave [facility] for 3 months Perineal wound external dressing changed at bedside Will likely need laparotomy to create Colostomy at some point Regular diet. Encourage better PO intake. TPN increased. OOB ambulate with help Possible D/C Thursday but will need [facility] to learn dressing changes prior to D/C Jadon Roth MD Dec 05, 2016 15:24
[2016-12-05 16:00] VITALS: BP 101/61; PULSE 76; RESP 18; TEMP 97.1; O2SAT 98
[2016-12-05] MEDS: MORPHINE SULFATE 4 MG/ML INJ IV PUSH PRN (17:43)
[2016-12-05 20:00] VITALS: BP 101/55; PULSE 71; RESP 18; TEMP 96.8; O2SAT 97
[2016-12-05] MEDS: FAT EMULSION 20% INJ 250 ML (@10 mls/hr) IV SCH (20:00)
[2016-12-05] MEDS: D5-LR + KCL 20 MEQ INJ 1,000 ML IV SCH (20:35)
[2016-12-05] MEDS: TAMSULOSIN HCL 0.4 MG CAP PO SCH (22:55)
[2016-12-05] MEDS: MULTIVITAMIN INJ 10 ML, FOLIC ACID INJ 1 MG, INSULIN HUMAN REGULAR INJ 20 UNITS in AMIN... IV-CENTRAL SCH (23:20)
[2016-12-06] VITALS: BP 101/54; PULSE 83; RESP 16; TEMP 99; O2SAT 97
[2016-12-06] MEDS: metroNIDAZOLE 500 MG INJ 100 ML IV SCH ×4 (00:50→18:06)
[2016-12-06] MEDS: cefTRIAXone INJ 1,000 MG in SODIUM CHLORIDE 0.9% INJ 100 ML IV SCH ×2 (01:57→14:00)
[2016-12-06] MEDS: oxyCODONE/ACETAMINOPHEN 10 MG/325 MG TAB PO PRN ×5 (04:14→20:15)
[2016-12-06 05:20] VITALS: BP 170/78; PULSE 112; RESP 18; TEMP 98.1; O2SAT 94
[2016-12-06] MEDS: METOCLOPRAMIDE HCL 10 MG/2 ML VIAL IVS SCH ×3 (05:23→16:16)
[2016-12-06 08:00] VITALS: BP 108/57; PULSE 81; RESP 16; TEMP 97.9; O2SAT 97
[2016-12-06] MEDS: FUROSEMIDE 20 MG/2 ML VIAL IV PUSH SCH ×2 (08:35→16:15)
[2016-12-06] MEDS: PANTOPRAZOLE SODIUM 40 MG VIAL IVP SCH (08:35)
[2016-12-06] MEDS: SODIUM CHLORIDE 0.9% 10 ML VIAL IRRIGATION SCH ×2 (08:36→20:23)
[2016-12-06] MEDS: SODIUM CHLORIDE 0.9% FLUSH 10 ML FLUSH IV FLUSH SCH ×2 (08:36→20:15)
[2016-12-06] MEDS ORDERED: DIATRIZOATE MEGLUM/DIATRIZOATE SOD 9 ML CUP PO ONE (09:15)
[2016-12-06] MEDS: MORPHINE SULFATE 4 MG/ML INJ IV PUSH PRN (10:45)
--- NOTE | 2016-12-06 11:07 | HHI.PR ---
Subjective Remarks POD#8 s/p anal debridement Painful Objective Vital Signs Date Time Temp Pulse Resp B/P Pulse Ox O2 Delivery O2 Flow Rate FiO2 12/06/16 08:00 97.9 81 16 108/57 97 12/06/16 05:20 12/06/16 00:00 99.0 83 16 101/54 97 12/05/16 20:00 96.8 71 18 101/55 97 12/05/16 16:00 97.1 76 18 101/61 98 12/05/16 12:00 98.4 71 17 112/69 98 I/O 12/05/16 12/05/16 12/05/16 12/06/16 12/06/16 12/06/16 07:00 15:00 23:00 07:00 15:00 23:00 Intake Total 1573 ml 1399 ml 1027 ml Output Total 500 ml 1650 ml 1500 ml 380 ml Balance 1073 ml -251 ml -1500 ml 647 ml Intake Oral 480 ml 480 ml 240 ml IV Total 307 ml 229 ml 227 ml TPN/PPN 698 ml 615 ml 498 ml Lipid 88 ml 75 ml 62 ml Output Urine Total 300 ml 1650 ml 1500 ml 200 ml Stool Total 200 ml 0 ml 150 ml Drainage Total 30 ml # Bowel Movements 1 Result Diagram: 12/04/16 0550 12/04/16 0550 Objective Remarks Abdomen soft, nondistended, nontender Perineal wound - dressing changed, clean Assessment and Plan Assessment and Plan Continue daily dressing changes Start to wean TPN tomorrow Hopefully home in 2-3 days Mame Chan MD Dec 06, 2016 11:07
[2016-12-06 12:00] VITALS: BP 98/57; PULSE 79; RESP 20; TEMP 97.8; O2SAT 99
[2016-12-06 16:00] VITALS: BP 111/64; PULSE 72; RESP 18; TEMP 96.6; O2SAT 98
[2016-12-06 20:00] VITALS: BP 103/58; PULSE 61; RESP 18; TEMP 97.1; O2SAT 99
[2016-12-06] MEDS: FAT EMULSION 20% INJ 250 ML (@10 mls/hr) IV SCH (20:14)
[2016-12-06] MEDS: D5-LR + KCL 20 MEQ INJ 1,000 ML IV SCH (20:14)
[2016-12-06] MEDS: TAMSULOSIN HCL 0.4 MG CAP PO SCH (20:15)
[2016-12-06] MEDS: MULTIVITAMIN INJ 10 ML, FOLIC ACID INJ 1 MG, INSULIN HUMAN REGULAR INJ 20 UNITS in AMIN... IV-CENTRAL SCH (20:22)
[2016-12-07] VITALS: BP 109/58; PULSE 74; RESP 18; TEMP 98.3; O2SAT 97
[2016-12-07] MEDS: METOCLOPRAMIDE HCL 10 MG/2 ML VIAL IVS SCH ×4 (00:10→16:17)
[2016-12-07] MEDS: oxyCODONE/ACETAMINOPHEN 10 MG/325 MG TAB PO PRN ×6 (00:10→20:34)
[2016-12-07] MEDS: metroNIDAZOLE 500 MG INJ 100 ML IV SCH ×4 (00:10→17:18)
[2016-12-07] MEDS: cefTRIAXone INJ 1,000 MG in SODIUM CHLORIDE 0.9% INJ 100 ML IV SCH ×2 (03:40→12:10)
[2016-12-07 08:00] VITALS: BP 103/56; PULSE 74; RESP 17; TEMP 98.8; O2SAT 94
[2016-12-07] MEDS: FUROSEMIDE 20 MG/2 ML VIAL IV PUSH SCH ×2 (08:29→16:17)
[2016-12-07] MEDS: SODIUM CHLORIDE 0.9% FLUSH 10 ML FLUSH IV FLUSH SCH ×2 (08:29→20:32)
[2016-12-07] MEDS: PANTOPRAZOLE SODIUM 40 MG VIAL IVP SCH (08:29)
[2016-12-07] MEDS: SODIUM CHLORIDE 0.9% 10 ML VIAL IRRIGATION SCH ×2 (08:30→20:35)
--- NOTE | 2016-12-07 11:44 | RADRPT ---
EXAM DATE/TIME: 12/06/2016 20:39 [place] COMPARISON: CT ABDOMEN & PELVIS W/O CONTRAST, December 01, 2016, 17:49. INDICATIONS : Status post abscess drainage. ORAL CONTRAST: Prescribed oral contrast ingested. RADIATION DOSE: 15.70 CTDIvol (mGy) MEDICAL HISTORY : Gastroesophageal reflux disease. Carcinoma, colon. SURGICAL HISTORY : ileostomy, hernia repair ENCOUNTER: Subsequent ACUITY: 1 day PAIN SCALE: 0/10 LOCATION: Bilateral abdomen TECHNIQUE: Volumetric scanning of the abdomen and pelvis was performed. Using automated exposure control and ad justment of the mA and/or kV according to patient size, radiation dose was kept as low as reasonably achievable to obtain optimal diagnostic quality images. DICOM format image data is available electro nically for review and comparison. FINDINGS: Abscess drain within the anterior peritoneal cavity in the pelvis is again noted. The surrounding abs cess has markedly diminished in size with very little residual fluid. Fluid surrounding the liver has significantly decreased as well. There are no new or acute abnormalities. Right lower quadrant ostomy is stable. CONCLUSION: Near-total evacuation of anterior peritoneal abscess within the pelvis. Decreasing free fluid in the abdomen. Otherwise stable exam. Nikhil Collins MD on December 07, 2016 at 11:39 Board Certified Radiologist. This report was verified electronically.
[2016-12-07 12:00] VITALS: BP 102/48; PULSE 79; RESP 24; TEMP 98.1; O2SAT 98
[2016-12-07] MEDS ORDERED: MORPHINE SULFATE 8 MG/ML INJ IV PUSH PRN (13:15)
--- NOTE | 2016-12-07 13:34 | HHI.PR ---
Subjective Remarks POD#9 s/p anal debridement Painful Objective Vital Signs Date Time Temp Pulse Resp B/P Pulse Ox O2 Delivery O2 Flow Rate FiO2 12/07/16 08:00 98.8 74 17 103/56 94 12/07/16 00:00 98.3 74 18 109/58 97 12/06/16 20:00 97.1 61 18 103/58 99 12/06/16 16:00 96.6 72 18 111/64 98 I/O 12/06/16 12/06/16 12/06/16 12/07/16 12/07/16 12/07/16 07:00 15:00 23:00 07:00 15:00 23:00 Intake Total 1027 ml 1990 ml 681 ml 1252 ml Output Total 380 ml 2345 ml 450 ml 430 ml Balance 647 ml -355 ml 231 ml 822 ml Intake Oral 240 ml 1200 ml 240 ml 120 ml IV Total 227 ml 389 ml 107 ml 281 ml TPN/PPN 498 ml 306 ml 131 ml 754 ml Lipid 62 ml 95 ml 203 ml 97 ml Output Urine Total 200 ml 1800 ml 450 ml 425 ml Stool Total 150 ml 525 ml Drainage Total 30 ml 20 ml 0 ml 5 ml Result Diagram: 12/04/16 0550 12/04/16 0550 Objective Remarks Abdomen soft, nondistended, nontender Perineal wound - dressing changed, clean, more fluid than yesterday Assessment and Plan Assessment and Plan Continue daily dressing changes Wean TPN Maybe home tomorrow Mame Chan MD Dec 07, 2016 13:34
[2016-12-07 16:00] VITALS: BP 109/67; PULSE 78; RESP 24; TEMP 97.6; O2SAT 97
[2016-12-07 20:00] VITALS: BP 111/65; PULSE 73; RESP 18; TEMP 96; O2SAT 98
[2016-12-07] MEDS ORDERED: MULTIVITAMIN INJ 10 ML, FOLIC ACID INJ 1 MG, INSULIN HUMAN REGULAR INJ 20 UNITS in AMIN... IV-CENTRAL SCH (20:00)
[2016-12-07] MEDS: TAMSULOSIN HCL 0.4 MG CAP PO SCH (20:32)
[2016-12-07] MEDS: D5-LR + KCL 20 MEQ INJ 1,000 ML IV SCH (20:33)
[2016-12-08] VITALS: BP 100/56; PULSE 72; RESP 19; TEMP 96.6; O2SAT 96
[2016-12-08] MEDS: metroNIDAZOLE 500 MG INJ 100 ML IV SCH ×2 (00:29→06:43)
[2016-12-08] MEDS: METOCLOPRAMIDE HCL 10 MG/2 ML VIAL IVS SCH ×3 (00:30→11:01)
[2016-12-08] MEDS: oxyCODONE/ACETAMINOPHEN 10 MG/325 MG TAB PO PRN ×3 (00:30→11:00)
[2016-12-08] MEDS: D5-LR + KCL 20 MEQ INJ 1,000 ML IV SCH (00:39)
[2016-12-08] MEDS: cefTRIAXone INJ 1,000 MG in SODIUM CHLORIDE 0.9% INJ 100 ML IV SCH (01:57)
[2016-12-08 06:53] LABS: AUTOMATED NEUTROPHIL # 5.3 TH/MM3 (1.8-7.7); BASOPHIL % 0.6 % (0.0-2.0); EOSINOPHIL # 0.1 TH/MM3 (0-0.4); EOSINOPHIL % 1.4 % (0.0-4.0); HEMATOCRIT 28.5 % (39.0-51.0); HEMO FLAGS DIFF FINAL; LYMPH % 8.5 % (9.0-44.0); LYMPHOCYTE # 0.6 TH/MM3 (1.0-4.8); MEAN CELL VOLUME 86.9 FL (80.0-100.0); MEAN CORPUSCULAR HEMOGLOBIN 28.9 PG (27.0-34.0); MEAN CORPUSCULAR HGB CONC 33.3 % (32.0-36.0); MONO % 9.4 % (0.0-8.0); NEUT % 80.1 % (16.0-70.0); PLATELET COUNT 274 TH/MM3 (150-450); RED BLOOD COUNT 3.28 MIL/MM3 (4.50-5.90); RED CELL DISTRIBUTION WIDTH 15.3 % (11.6-17.2); WHITE BLOOD COUNT 6.7 TH/MM3 (4.0-11.0)
[2016-12-08 07:23] LABS: BICARBONATE 28.6 MEQ/L (21.0-32.0); POTASSIUM 4.8 MEQ/L (3.5-5.1)
[2016-12-08 08:00] VITALS: BP 109/59; PULSE 75; RESP 16; TEMP 98; O2SAT 96
[2016-12-08] MEDS: FUROSEMIDE 20 MG/2 ML VIAL IV PUSH SCH (08:02)
[2016-12-08] MEDS: SODIUM CHLORIDE 0.9% FLUSH 10 ML FLUSH IV FLUSH SCH (08:04)
[2016-12-08] MEDS: PANTOPRAZOLE SODIUM 40 MG VIAL IVP SCH (08:04)
[2016-12-08] MEDS: SODIUM CHLORIDE 0.9% 10 ML VIAL IRRIGATION SCH (08:05)
--- NOTE | 2016-12-08 10:20 | HHI.FF ---
Face to Face Verification Diagnosis: (1) Abscess (2) Ileostomy in place Home Health Nursing Order: Medical education Wound care and dressing changes Nursing assessment with vital signs Instructions: Pt needs irrigation of perineal wound with saline,then Kerlix packing wet to dry. Wound must be deeply packed once daily. I have seen patient Brayan Velazquez on 12/08/16. My clinical findings support the need for the requested home health care services because: Ltd mobility - disease progression Deconditioned w/ increased weakness Med compliance is questionable Limited ability to care for self Need for psychosocial assistance High risk of falls Infection w/ risk of complications I certify that my clinical findings support that this patient is homebound because: Post-op weakness Unsteady gait/balance Jadon Roth MD Dec 08, 2016 10:20
[2016-12-08] MEDS ORDERED: CEPH-460 PO (10:58)
[2016-12-08 12:00] VITALS: BP 112/66; PULSE 82; RESP 13; TEMP 96; O2SAT 97
[2016-12-08] MEDS ORDERED: HYDR-3366 PO (12:18)
== END 2016-12-08 14:29 | disposition home health service (06) | DRG 907 ==
LOC: N03A 21:30 → N07B 12-02 18:36
PROVIDERS: ADMIT Colon & Rectal Surgery; ATTEND Colon & Rectal Surgery
PROC: 0DTQ0ZZ Resection of Anus, Open Approach (ICD-10-PCS; 2016-11-27)
PROC: 0WJJ4ZZ Inspection of Pelvic Cavity, Percutaneous Endoscopic Approach (ICD-10-PCS; 2016-11-27)
PROC: 0DJD8ZZ Inspection of Lower Intestinal Tract, Via Natural or Artificial Opening Endoscopic (ICD-10-PCS; 2016-11-27)
PROC: 0HD8XZZ Extraction of Buttock Skin, External Approach (ICD-10-PCS; 2016-11-27)
PROC: 0HD8XZZ Extraction of Buttock Skin, External Approach (ICD-10-PCS; 2016-11-27)
PROC: 0J9B0ZZ Drainage of Perineum Subcutaneous Tissue and Fascia, Open Approach (ICD-10-PCS; principal; 2016-11-27 23:02)
PROC: 30233N1 Transfusion of Nonautologous Red Blood Cells into Peripheral Vein, Percutaneous Approach (ICD-10-PCS; 2016-11-28)
PROC: 3E1038Z Irrigation of Skin and Mucous Membranes using Irrigating Substance, Percutaneous Approach (ICD-10-PCS; 2016-11-29)
PROC: 02HV33Z Insertion of Infusion Device into Superior Vena Cava, Percutaneous Approach (ICD-10-PCS; 2016-11-29)
PROC: 0HD9XZZ Extraction of Perineum Skin, External Approach (ICD-10-PCS; 2016-11-30)
PROC: 3E1038Z Irrigation of Skin and Mucous Membranes using Irrigating Substance, Percutaneous Approach (ICD-10-PCS; 2016-11-30)
PROC: 0W9G30Z Drainage of Peritoneal Cavity with Drainage Device, Percutaneous Approach (ICD-10-PCS; 2016-12-01)
PROC: 0VJ Male Reproductive System, Inspection (ICD-10-PCS; 2016-12-04)
PROC: 3E1038Z Irrigation of Skin and Mucous Membranes using Irrigating Substance, Percutaneous Approach (ICD-10-PCS; 2016-12-04)
DX: T81.32XA Disruption of internal operation (surgical) wound, not elsewhere classified, initial encounter (principal); K65.1 Peritoneal abscess; K61.3 Ischiorectal abscess; R32 Unspecified urinary incontinence; R79.89 Other specified abnormal findings of blood chemistry; K62.89 Other specified diseases of anus and rectum; N42.9 Disorder of prostate, unspecified; Z93.2 Ileostomy status; Z92.21 Personal history of antineoplastic chemotherapy; Z92.3 Personal history of irradiation; Z85.048 Personal history of other malignant neoplasm of rectum, rectosigmoid junction, and anus; Y83.2 Surgical operation with anastomosis, bypass or graft as the cause of abnormal reaction of the patient, or of later complication, without mention of misadventure at the time of the procedure
CPT/HCPCS: 36430; 36569; 49405; 71010; 74176; 74177; 76937; 80048; 82948; 84155; 85007; 85025; 85027; 85610; 85730; 86850; 86900; 86901; 86920; 87015; 87070; 87077; 87102; 87116; 87185; 87186; 87205; 87206; 87641; 88304; 88305; 94150; C1729; C1769; C9113; J0696; J1815; J1940; J2250; J2270; J2370; J2405; J2543; J2765; J3010; J3480; J7030; J7042; J7120; P9016; Q9963; Q9967

== ENCOUNTER 2018-05-12 18:37 | Inpatient (IN) ==
--- NOTE | 2018-05-12 19:18 | ED ---
HPI General Chief Complaint: Neuro Symptoms/Deficit Stated Complaint: Poss Brain Bleed/[facility] Time Seen by Provider: 05/12/18 18:45 Source: patient, EMS and old records reviewed Mode of arrival: EMS Limitations: no limitations History of Present Illness HPI Narrative: 63 YO M with PMH of rectal CA, HTN, current smoker presents to the ED as a trauma transfer from [facility] for evaluation of brain bleed versus mass. Per the patient he had several falls over the last few days. On arrival he denies headache, dizziness, vision changes. He complains of weakness of the left side. He is alert and oriented to self, place, situation and president. Family is en route. reports via phone that the patient was normal up until 1 am last night. Per chart review the patient had some left arm weakness, gait instability and blurry vision that started sometime last night. Per the chart review the patient was found to have a large right parieto- occipital intraparenchymal hematoma. There is concern for an underlying mass lesion. There is mass effect with [id number]-az-[id number] shift of 1.3cm. Related Data Home Medications Medication Instructions Recorded Confirmed acetaminophen [Tylenol Extra 500 mg PO Q6H PRN 05/12/18 05/12/18 Strength] oxycodone-acetaminophen 1 tab PO Q4-6H PRN 05/12/18 05/12/18 Allergies Allergy/AdvReac Type Severity Reaction Status Date / Time No Known Allergies Allergy Verified 05/12/18 19:29 Review of Systems ROS: all other systems reviewed are negative [facility] Medical History Medical History Colon cancer (Acute) Colostomy in place (Acute) HTN (hypertension) (Acute) Social History Social History Substance History: No History of Abuse Second Hand Smoke Exposure: No Smoking Status: Current every day smoker Tobacco Type: Cigarettes How Often Do You Have a Drink Containing Alcohol: Never Recent Travel in [place] within the Last 8 Weeks: No Recent Out of Country Travel within the Last 8 Weeks: No Exam Narrative Exam Narrative: GENERAL: Well nourished, well developed male in NAD. SKIN: Focused skin assessment warm/dry. HEAD: Atraumatic. Normocephalic. EYES: Pupils equal and round. No scleral icterus. No injection or drainage. ENT: No nasal bleeding or discharge. Mucous membranes pink and moist. NECK: Trachea midline. No JVD. CARDIOVASCULAR: Regular rate and rhythm. No murmur appreciated. RESPIRATORY: No accessory muscle use. Clear to auscultation. Breath sounds equal bilaterally. GASTROINTESTINAL: Abdomen soft, non-tender, nondistended. Hepatic and splenic margins not palpable. MUSCULOSKELETAL: No obvious deformities. No clubbing. No cyanosis. No edema. NEUROLOGICAL: Awake and alert. No obvious cranial nerve deficits. Normal speech. 3/5 strength of left sided extremities. 5/5 strength of the left sided extremities. PSYCHIATRIC: Appropriate mood and affect; insight and judgment normal. Course Initial Documented Vital Signs Temperature 98.9 F 05/12/18 18:53 Pulse Rate 65 05/12/18 18:53 Respiratory Rate 23 05/12/18 18:53 Blood Pressure 128/72 05/12/18 18:53 Pulse Oximetry 99 05/12/18 18:53 Last Documented Vital Signs Temperature 98.9 F 05/12/18 18:53 Pulse Rate 62 05/12/18 19:18 Respiratory Rate 16 05/12/18 19:18 Blood Pressure 128/72 05/12/18 18:53 Pulse Oximetry 98 05/12/18 19:18 NIH Stroke Scale NIH Stroke Scale Level of Consciousness: 0-Alert Orientation Questions: 0-Answers both correct Responds to Commands: 0-Both tasks correct Gaze Eye Movement: 0-Horizontal movement WNL Visual Meyer: 0-No visual field defect Facial Movement: 0-Normal Motor Functions Arm LEFT: 0-No drift Motor Functions Arm RIGHT: 0-No drift Motor Functions Leg LEFT: 0-No drift Motor Functions Leg RIGHT: 0-No drift Limb Ataxia: 2-Ataxia in two limbs Sensory Loss: 0-No sensory loss Best Language: 0-Normal Articulation: 1-Mild dysarthia Extinction or Inattention Sensory: 0-Absent Total: 3 Medical Decision Making MDM Narrative Medical decision making narrative: 63 YO M with PMH of rectal CA, HTN, current smoker presents to the ED as a trauma transfer from [facility] for evaluation of brain bleed versus mass. Patient reports multiple falls over the last few days. reports by phone that the weakness began sometime last night. Patient had a CT at the outside hospital that showed occipital mass versus ICH. On presentation the patient is alert and oriented. Exam reveals weakness of the left upper and lower extremities. Outside lab work reviewed, no acute abnormalities. MRI ordered. Consult placed with Dr. Fermin. I spoke with Dr. Terrazas who saw the patient in the ED. The patient is admitted to Dr. Lang in the ICU. Please see trauma and neurosurgery notes for disposition. Medical Screen Exam Complete: Yes Emergency Medical Condition: Yes Differential Diagnosis Differential Diagnosis: mass versus hemorrhagic stroke versus trauma versus other Imaging Data Radiologist's impression: Head MRI 05/12/18 19:06 CONCLUSION: 5.5 cm rim-enhancing mass seen in the posterior right cerebral hemisphere in the parietal occipital region with surrounding mass effect. This is thought to either represent an organizing hematoma with peripheral enhancement versus an underlying mass. There is definite evidence of some hemorrhage based on the signal characteristics. Follow-up would be recommended. ECG Data EKG Prior to Arrival: No Interpretation: EKG rate 55, sinus rhythm. MD interval 174, QRS 94, QTc 408. Normal axis. No acute ST changes. Discharge Plan Discharge Disposition Patient Disposition: ED Admit(ED Internal Use Only) Discharge Order Discharge Orders: ED Use Only Admit Order (Routine); Ordered 05/12/18 Ordered By: Meri Siddiqi Physicians Team ED Provider: Kaleb Ram ED Midlevel Provider: Meri Siddiqi Primary Care Provider: UNKNOWN, Attending Provider: Agus Terrazas Other Providers: Aj Fermin Discharge Interventions Interventions: Vital Signs Last Done: 05/12/18 19:18 Status ED Status: Admitted Patient
[2018-05-12] MEDS ORDERED: Post-op Orders (for Pharmacy) OTHER ONE (20:04)
[2018-05-12] MEDS ORDERED: Bisacodyl 10 MG Supp RECTAL PRN (20:04)
[2018-05-12] MEDS ORDERED: Acetaminophen 325 MG Tablet PO PRN (20:04)
[2018-05-12] MEDS ORDERED: Naloxone Inj 0.4 MG/ML Vial IV.PUSH PRN (20:04)
[2018-05-12] MEDS ORDERED: Gadobutrol PF 7.5 MMOL/7.5 ML Vial (for RAD) IV.SIG ONE (20:27)
[2018-05-12] MEDS ORDERED: oxyCODONE/Acetaminophen 10/325 Tablet PO PRN (20:42)
--- NOTE | 2018-05-12 20:44 | MH ---
cc: Agus Terrazas MD DATE OF ADMISSION: 05/12/2018 REASON FOR ADMISSION: Mass in the right occipital brain area, possible primary metastatic bleeding tumor. HISTORY OF PRESENT ILLNESS: This 63-year-old gentleman apparently was feeling dizzy yesterday evening and then fell. Since then, he fell about 3-4 times. He barely struck his head, yet he was transferred to [facility] and on CT scan was found to have a large right occipital cerebral mass with some shift and some malacia around it. The patient was transferred to our institution because it is unclear, whether the patient has a tumor, stroke or intracranial bleed of some other sort. PAST MEDICAL HISTORY: Colon cancer, hypertension. PAST SURGICAL HISTORY: Right colon resection with colostomy about 2 years ago, maybe ileostomy hard to tell. MEDICATIONS: From the records. SOCIAL HISTORY: The patient smokes about a pack a day for most of his adult life and continues until he was admitted to the hospital yesterday. PHYSICAL EXAMINATION: GENERAL: Reveals a pleasant 63-year-old gentleman, awake, alert, oriented. HEENT: Normocephalic. No trauma to the head. There is no bruising noted. There is no ecchymosis. There is nothing that would suggest the trauma from external exam. Pupils equal and reactive. Extraocular muscles intact. The patient has slight horizontal nystagmus. The ear exam is normal. The patient does not have hemotympanum or rouse sign. No raccoon's eyes. No signs of trauma to the face. NECK: Bilateral carotid pulses. CHEST: Bilateral breath sounds, somewhat decreased. The patient does have some degree of chronic obstructive pulmonary disease. HEART: Regular rate and rhythm. The patient does not have arrhythmias while I was examining him. ABDOMEN: Soft. No rebound. No guarding. No masses. Right mid abdomen ileostomy bag. Pelvis is stable. EXTREMITIES: The patient has palpable femoral pulses and palpable distal pulses. No neurologic deficit. NEUROLOGIC: The patient's Karlie coma scale is 15. He has slight perhaps drooping of the right side of his mouth, but it was barely noticeable and clearly if I did not know what he had, I would not even notice it as more than asymmetry. Motoric exam reveals weakness in the left arm about 3/5, and weakness in the left leg about 4/5. The patient has deep tendon reflexes. No pathologic reflexes. Left arm reflexes are decreased. Vascular supply as above noted. IMPRESSION: I reviewed laboratory and diagnostic exam. I looked also at a CAT scan that the patient came with and ordered an MRI. This patient did not have intracranial bleed from trauma. This is something else going on: The patient either has a primary tumor that bled, a hemorrhagic stroke or possibly a metastasis from another site that bled. Patient will be admitted to our service and Dr. Fermin, neurosurgery, is consulted. We will go from there. MD PIERRE Giron/marc , 08:01 PM , 08:11 PM
--- NOTE | 2018-05-12 21:04 | MR ---
EXAM DATE: 05/12/2018 8:54 PM EST AGE/SEX: 63 years / Male INDICATIONS: . Abnormal CT scan indicating poss mass w hemorrhagic conversion. Left sided weaknes s. CLINICAL DATA: This is the patient's initial encounter. Patient reports that signs and symptoms have been present for 1 week and indicates a pain score of 0/10. MEDICAL/SURGICAL HISTORY: . Colon Ca, HTN, Chemo & Radiation . Colon Resection W/ Colostomy COMPARISON: No prior exams available for comparison. TECHNIQUE: Multiplanar, multisequence examination of the brain was performed without and with 7 ml Ga davist (gadobutrol) contrast as a single exam dose. FINDINGS: Cerebrum: There is a mass seen in the right parieto-occipital region. This mass measures 5.0 x 5.5 x 3.8 cm. It demonstrates rim enhancement. It demonstrates predominantly low signal centrally on the T 1-weighted images with increased signal on the T2-weighted images. There is some decreased signal on the gradient echo sequences. There is surrounding edema seen extending into the right parietal, occip ital and temporal lobes. There is 1.25 cm of right to left midline shift. The basal cisterns are narr owed but still open. The narrowing is especially prominent on the right side. There is effacement of the sulci in the right convexity. There is mass effect on the right lateral ventricle and the third v entricle. No other possible masses are seen. White Matter: In the addition to the edema caused by the right posterior cerebral mass, there are so me scattered focal areas of increased signal seen in the cerebral white matter. The small areas of fo pete demyelination are nonspecific. They could be from small vessel ischemic change. Posterior Fossa: The cerebellum and brainstem are intact. The 4th ventricle is midline. The cerebel lopontine angle is unremarkable. The cerebellar tonsils are normal in position. Diffusion Imaging: There is small foci of increased signal seen in the right posterior cerebral mass . This could be from T2 shine through phenomenon. Extracranial: The visualized portions of the orbits and paranasal sinuses are unremarkable. CONCLUSION: 5.5 cm rim-enhancing mass seen in the posterior right cerebral hemisphere in the parietal occipital r egion with surrounding mass effect. This is thought to either represent an organizing hematoma with p eripheral enhancement versus an underlying mass. There is definite evidence of some hemorrhage based on the signal characteristics. Follow-up would be recommended. Electronically signed by: Jadon Devlin MD Board Certified Radiologist 05/12/2018 9:03 PM EST
[2018-05-12 21:32] LABS: Hematocrit 38.9 % (39.0-51.0); Hemoglobin 13.8 gm/dL (13.0-17.0); Mean Corpuscular HGB Conc 35.5 % (32.0-36.0); Mean Corpuscular Hemoglobin 31.7 pg (27.0-34.0); Mean Corpuscular Volume 89.4 fL (80.0-100.0); Mean Platelet Volume 7.7 fL (7.0-11.0); Platelet Count 155 th/mm3 (150-450); Red Blood Count 4.35 mil/mm3 (4.50-5.90); Red Cell Distribution Width 14.8 % (11.6-17.2); White Blood Count 9.4 th/mm3 (4.0-11.0)
[2018-05-12] MEDS: Sod Chloride 0.9% Inj 1,000 ML IV.CONT SCH (21:39)
[2018-05-12] MEDS: levETIRAcetam 500 MG Tablet PO SCH (22:24)
[2018-05-12] MEDS: Sodium Chloride 23.4% Inj 188 MEQ in Sod Chloride 0.9% Inj 1,000 ML IV.CONT SCH (22:24)
[2018-05-12] MEDS: Senna/Docusate Sodium 8.6/50 MG Tablet PO SCH (22:24)
--- NOTE | 2018-05-12 23:13 | P.CONNS ---
History of Present Illness Service: Neurosurgery Consult date: 05/12/18 Requesting Physician: Agus Terrazas Reason for Consult: Cerebral hemorrhagic mass Primary Care Provider: UNKNOWN Chief Complaint: weakness History of Present Illness: This is a 63 year old male with history of rectal CA, HTN, current smoker, who presents to the ED as a trauma transfer from [facility] for evaluation of brain hemorrhage. He reports that he had several falls over the last few days. He denies headache, dizziness, vision changes. He complains of weakness of the left side. He is alert and oriented to self, place, situation and president. His reports via phone that the patient was normal up until 1 am last night. Per chart review the patient had left arm weakness, gait instability and blurry vision that started sometime last night. Per the chart review the patient was found to have a large right parieto-occipital intraparenchymal hematoma. There is concern for an underlying mass lesion. There is mass effect with [id number] shift of 1.3cm. MRI of the brain showed a 5.5 cm rim-enhancing mass seen in the posterior right cerebral hemisphere in the parietal occipital region with surrounding mass effect and midline shift. Neurosurgery consultation was requested. His family history was reviewed and non contributory to the present admission Review of Systems All other systems reviewed negative except as stated in HPI [facility] - History History Provided By: Patient, Family Member - Medical History Medical History: Medical History (Last Reviewed 05/16/18 @ 13:48 by Aj Fermin MD) Colon cancer Colostomy in place HTN (hypertension) - Tobacco History Second Hand Smoke Exposure: Yes Tobacco Use In Past 30 Days: Yes Smoking Status: Current every day smoker Tobacco Type: Cigarettes - Alcohol History How Often Do You Have a Drink Containing Alcohol: Never - Substance Use History Substance History: No History of Abuse - Travel History Recent Travel in the [place] Within the Last 8 Weeks: No Recent Travel Out of the Country Within the Last 8 Weeks: No - Immunization History Tetanus Immunization: >5 Years Medications and Allergies Active Medications: Active Medications Acetaminophen (Tylenol) 650 mg PO Q6HR PRN PRN Reason: PAIN SCALE 1 TO 2 Al Hydroxide/Mg Hydroxide (Milk Of Magnesia Liq) 30 ml PO Q12H PRN PRN Reason: Mild Constipation Bisacodyl (Dulcolax Supp) 10 mg RECTAL DAILY PRN PRN Reason: SEVERE CONSITIPATION Dexamethasone Sodium Phosphate (Decadron Inj) 4 mg IV.PUSH Q6H [facility] Sodium Chloride (Ns Inj) 1,000 mls @ 100 mls/hr IV.CONT .Q10H [facility] Last Admin: 05/12/18 21:39 Dose: 100 mls/hr Sodium Chloride 188 meq/ (Sodium Chloride) 1,047 mls @ 20 mls/hr IV.CONT .Q24H [facility] Last Admin: 05/12/18 22:24 Dose: 20 mls/hr Lactulose (Lactulose Liq) 30 ml PO DAILY PRN PRN Reason: SEVERE CONSITIPATION Levetiracetam (Keppra) 500 mg PO BID [facility] Last Admin: 05/12/18 22:24 Dose: 500 mg Naloxone HCl (Narcan Inj) 0.4 mg IV.PUSH UNSCH PRN PRN Reason: SEE LABEL COMMENTS Ondansetron HCl (Zofran Inj) 4 mg IV.PUSH Q6H PRN PRN Reason: NAUSEA OR VOMITING Oxycodone/Acetaminophen (Percocet 10/325 Mg) 1 tab PO Q4H PRN PRN Reason: PAIN SCALE 3-10 Pantoprazole Sodium (Protonix) 40 mg PO DAILY [facility] Senna/Docusate Sodium (Janis-Colace) 1 tab PO BID [facility] Last Admin: 05/12/18 22:24 Dose: Not Given Sennosides (Senokot) 17.2 mg PO Q12H PRN PRN Reason: Moderate Constipation Allergies Allergy/AdvReac Type Severity Reaction Status Date / Time No Known Allergies Allergy Verified 05/12/18 19:29 Home Medications Medication Instructions Recorded Confirmed Type acetaminophen [Tylenol Extra 500 mg PO Q6H PRN 05/12/18 05/12/18 History Strength] oxycodone-acetaminophen 1 tab PO Q4-6H PRN 05/12/18 05/12/18 History Exam Vital signs: Vital Signs 05/12/18 18:53 05/12/18 19:18 05/12/18 21:27 Temperature 98.9 F Pulse Rate 65 62 65 Respiratory Rate 23 16 18 Blood Pressure 128/72 131/69 Pulse Oximetry 99 98 98 Intake & Output 05/12/18 05/12/18 05/13/18 06:59 18:59 06:59 Weight 83.5 kg Other: Weight On Admission 83.5 kg Narrative: GENERAL: Mr Wong is well nourished, well developed male in NAD. SKIN: Focused skin assessment warm/dry. HEAD: Atraumatic. Normocephalic. EYES: Pupils equal and round. No scleral icterus. No injection or drainage. ENT: No nasal bleeding or discharge. Mucous membranes pink and moist. NECK: Trachea midline. No JVD. CARDIOVASCULAR: Regular rate and rhythm. No murmur appreciated. RESPIRATORY: No accessory muscle use. Clear to auscultation. Breath sounds equal bilaterally. GASTROINTESTINAL: Abdomen soft, non-tender, nondistended. Hepatic and splenic margins not palpable. MUSCULOSKELETAL: No obvious deformities. No clubbing. No cyanosis. No edema. NEUROLOGICAL: Awake and alert. No obvious cranial nerve deficits. Normal speech. 3/5 strength of left sided extremities. 5/5 strength of the left sided extremities. PSYCHIATRIC: Appropriate mood and affect; insight and judgment normal. Results - Laboratory Findings CBC and BMP: 05/16/18 05:20 05/16/18 05:20 Abnormal lab findings: Abnormal Labs 05/12/18 21:23 RBC 4.35 L Hct 38.9 L Assessment and Plan - Plan 63 YO M with PMH of rectal CA, HTN, current smoker presents to the ED as a trauma transfer from [facility] for evaluation of brain bleed versus a hemorrhagic mass. I have reviewed the clinical and radiological findings Head MRI 05/12/18 19:06 CONCLUSION: 5.5 cm rim-enhancing mass seen in the posterior right cerebral hemisphere in the parietal occipital region with surrounding mass effect. This is thought to either represent an organizing hematoma with peripheral enhancement versus an underlying mass. There is definite evidence of some hemorrhage based on the signal characteristics. Follow-up would be recommended. Neuro: neuro checks in a serial fashion. Mannitol. decadron. Keppra for seizure prophylaxis Metastatic workup with CT of the chest, abdomen and pelvis. 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 Given its large size and mass effect, and midline shift, I recommend consideration to a surgical resection for decompression. All discussed the [id number] details of the surgical procedure, its indications, alternatives, risks, and potential complications. Risks and potential complications include, but are not limited to, infection, blood loss, CSF leak, partial or complete loss of sight in one or both eyes, paresis, paralysis, permanent pain or difficulty swallowing, loss of bowel or bladder function, complications from anesthesia, blood clot, stroke, myocardial infarction, or even . The possibility of nonoperative treatment has been offered. Pulmonary: aggressive pulmonary toilette, nasotracheal suction, and breathing treatments with nebulizers. Daily PT and OT Renal: Continue to monitor closely urine output, BUN and creatinine Endocrine: Continue to Monitor serial Acu checks and SSI as needed in detail ID continue to monitor for signs of infection Continue Protonix for stress ulcer prophylaxis Continue Melvin hose and SCD's for DVT prophylaxis Further recommendations will be provided depending on the patient's clinical evaluation and follow up studies. Discussed with Dr Hurd
[2018-05-12 23:51] LABS: INR 1.1 Ratio; Prothrombin Time 10.8 sec (9.8-11.6)
[2018-05-12 23:56] LABS: Carbon Dioxide 24.1 meq/L (21.0-32.0)
[2018-05-13 07:06] LABS: Baso % (Auto) 0.1 % (0.0-2.0); Hematocrit 38.9 % (39.0-51.0); Hemoglobin 13.5 gm/dL (13.0-17.0); Lymph # (Auto) 0.6 th/mm3 (1.0-4.8); Lymph % (Auto) 9.2 % (9.0-44.0); Mean Corpuscular HGB Conc 34.7 % (32.0-36.0); Mean Corpuscular Hemoglobin 31.7 pg (27.0-34.0); Mean Corpuscular Volume 91.3 fL (80.0-100.0); Mean Platelet Volume 7.9 fL (7.0-11.0); Mono # (Auto) 0.2 th/mm3 (0.0-0.9); Mono % (Auto) 2.7 % (0.0-8.0); Neut # (Auto) 5.9 th/mm3 (1.8-7.7); Platelet Count 157 th/mm3 (150-450); Red Blood Count 4.26 mil/mm3 (4.50-5.90); Red Cell Distribution Width 14.5 % (11.6-17.2); White Blood Count 6.8 th/mm3 (4.0-11.0)
[2018-05-13 07:23] LABS: Calcium 8.1 mg/dL (8.5-10.1); Carbon Dioxide 23.8 meq/L (21.0-32.0); Potassium 4.2 meq/L (3.5-5.1)
[2018-05-13] MEDS: Sod Chloride 0.9% Inj 1,000 ML IV.CONT SCH ×2 (07:54→16:51)
--- NOTE | 2018-05-13 08:07 | P.NPEVAL ---
Patient History - Record/History Review Reason for Referral: The patient is a 63 year old presumed right handed man who is a trauma transfer from another institution for brain bleed versus mass. The patient reported several falls, with complaints of left sided weakness but otherwise he is A&O. Head CT showed large right parietal-occipital intraparenchymal hematoma with mass effect. He was admitted to trauma service. He is referred for baseline neurobehavioral status examination per trauma protocol to assess cognitive, behavioral and emotional aspects of the injury and to provide treatment recommendations. [facility] - History History Provided By: Patient, Family Member - Medical History Medical History: Medical History (Last Reviewed 05/12/18 @ 19:21 by PUNEET Dasilva) Colon cancer Colostomy in place HTN (hypertension) - Tobacco History Second Hand Smoke Exposure: Yes Tobacco Use In Past 30 Days: Yes Smoking Status: Current every day smoker Tobacco Type: Cigarettes - Alcohol History How Often Do You Have a Drink Containing Alcohol: Never - Substance Use History Substance History: No History of Abuse - Travel History Recent Travel in the [place] Within the Last 8 Weeks: No Recent Travel Out of the Country Within the Last 8 Weeks: No - Immunization History Tetanus Immunization: Unable to Assess Hx Influenza Vaccine This Season: No Medications Active Medications Acetaminophen (Tylenol) 650 mg PO Q6HR PRN PRN Reason: PAIN SCALE 1 TO 2 Al Hydroxide/Mg Hydroxide (Milk Of Ronnie Lijohn) 30 ml PO Q12H PRN PRN Reason: Mild Constipation Albuterol (Duoneb Neb (Prn)) 1 ampul NEB Q2HR NEB PRN PRN Reason: SHORTNESS OF BREATH Bisacodyl (Dulcolax Supp) 10 mg RECTAL DAILY PRN PRN Reason: SEVERE CONSITIPATION Dexamethasone Sodium Phosphate (Decadron Inj) 4 mg IV.PUSH Q6H [facility] Last Admin: 05/13/18 05:16 Dose: 4 mg Enalaprilat (Vasotec Inj) 1.25 mg IV.PUSH Q6H PRN PRN Reason: SBP>180, DBP>95 Sodium Chloride (Ns Inj) 1,000 mls @ 100 mls/hr IV.CONT .Q10H [facility] Last Admin: 05/13/18 07:54 Dose: 100 mls/hr Sodium Chloride 188 meq/ (Sodium Chloride) 1,047 mls @ 20 mls/hr IV.CONT .Q24H [facility] Last Admin: 05/12/18 22:24 Dose: 20 mls/hr Lactulose (Lactulose Liq) 30 ml PO DAILY PRN PRN Reason: SEVERE CONSITIPATION Levetiracetam (Keppra) 500 mg PO BID [facility] Last Admin: 05/12/18 22:24 Dose: 500 mg Naloxone HCl (Narcan Inj) 0.4 mg IV.PUSH UNSCH PRN PRN Reason: SEE LABEL COMMENTS Ondansetron HCl (Zofran Inj) 4 mg IV.PUSH Q6H PRN PRN Reason: NAUSEA OR VOMITING Oxycodone/Acetaminophen (Percocet 10/325 Mg) 1 tab PO Q4H PRN PRN Reason: PAIN SCALE 3-10 Last Admin: 05/12/18 23:05 Dose: 1 tab Pantoprazole Sodium (Protonix) 40 mg PO DAILY [facility] Senna/Docusate Sodium (Janis-Colace) 1 tab PO BID [facility] Last Admin: 05/12/18 22:24 Dose: Not Given Sennosides (Senokot) 17.2 mg PO Q12H PRN PRN Reason: Moderate Constipation Mental Status Assessment - Mental Status Orientation: oriented to: Self, Place, Time, Situation Mental Status: WFL: Language/interactions, Variable: Attention, Learning/memory , Problem-solving, Impaired: Thought processing Absent: Hallucinations, Delusions Adjustment/Coping Assessment - Observation In terms of emotional functioning, the patient demonstrated challenges. This patient demonstrated no signs of agitation, impulsivity or disinhibition, nor was there remarkable evidence of a formal thought disorder or psychosis. There was no evidence of depression or anxiety. Thought content was free from suicidal, homicidal or paranoid ideation, and thought processes were logical and but bradyphrenic. The patients mood was euthymic, and his affect was stable and appropriate. The patient appears to possess insight and awareness into their situation and within the limits of this brief evaluation, adequate judgment. Behavior - Behavior Treatment Engagement: Average - Observation Behaviorally, the patient demonstrated no signs of agitation, impulsivity or disinhibition. There was no remarkable evidence of a formal thought disorder or psychosis. 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 Disinhibition Score: 14.00 Aggression Score: 14.00 Lability Score: 14.00 Agitated Behavior Total Score: 14 Maximizing Acute Care Outcome: It is recommended that the patient be monitored for emergent behavioral impulsivity as the medical condition evolves. This patients neuropathological challenges may limit rehabilitation potential going forward, and these challenges will require specialized therapeutic skills to maximize outcome. At this point in the recovery process, the patient does have cognitive capacity as the patient is able to understand a situation and its likely consequences, and he is able to manipulate information rationally. However, it is to be noted that persons with right hemisphere pathology tend to have awareness deficits, are impulsive and show left hemisensory neglect, and that these deficits will serve to attenuate their insight, awareness and judgment. Cognitive capacity will be assessed throughout the recovery process. - Discharge Planning Anticipated Problems: Ongoing areas of concern will include behavioral impulsivity, lack of insight and judgment, which is expected to improve with time and treatment. Treatment Plan: This clinician will continue to follow with you throughout the course of this patients critical care treatment, and I will be available to meet with the patients family/support system to facilitate their understanding and the ongoing care of their family member. The goals of neuropsychological intervention shall be both educational and supportive to the family/support system as is deemed clinically appropriate. Thank you for the opportunity to assist in this patients care. Александр Jaimes, Ph.D., ABPP Board Certified in Clinical Neuropsychology [place] [employer] Professional Psychology [place] Licensed Psychologist #[id number]
[2018-05-13] MEDS: levETIRAcetam 500 MG Tablet PO SCH ×2 (08:32→21:58)
[2018-05-13] MEDS: Senna/Docusate Sodium 8.6/50 MG Tablet PO SCH ×2 (08:33→21:58)
[2018-05-13] MEDS ORDERED: Diatrizoate Meglum/Diatrizoate Sod Liq 9 ML UDC PO ONE (14:46)
--- NOTE | 2018-05-13 15:07 | P.PNCC ---
Subjective Brief History: 63-year-old male transferred from [facility] after request was made to the trauma service. Patient apparently fell about 4 times in last few days and he underwent CT scan of the hand over day or which revealed a bleed in the posterior fossa. In addition states that the patient has been getting more progressively senile in the last few months He has history of colon cancer with diverting colostomy but I do not know without a therapy was undertaken and patient does not know either Upon discussing this case with the physician at [facility] it was not quite clear if patient had a stroke and bled fell and bled or had some other lesion nonetheless I accepted the patient in transfer in order to sort these things out here. Upon patient's arrival I reviewed the available diagnostic studies including CT of the brain which reveals hemorrhage into the posterior fossa but not reaching the surface of the brain so is essentially in the substance of the brain and significant degree of swelling with lateral ventricular collapse on the right On arrival patient was awake alert and oriented slightly confused and his Portuguese is somewhat limited Patient underwent MRI of the brain with contrast and at this point there is no question in my mind that this patient has met static lesion in his right occipital area of the brain without a known primary Colon cancer usually does not go into the brain rather goes to the liver and lungs but in this particular sick situation could be anything In addition patient was noted to have excoriation of the perineum and today when patient went to the bathroom urine came out of his anus which 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 Will follow with neurosurgical lead on this and see how patient does Objective Vital Signs / I&O: Vital Signs 05/12/18 18:53 05/12/18 19:18 05/12/18 21:27 Temperature 98.9 F Pulse Rate 65 62 65 Respiratory Rate 23 16 18 Blood Pressure 128/72 131/69 Pulse Oximetry 99 98 98 05/12/18 21:49 05/12/18 22:00 05/12/18 23:00 Temperature 97.4 F L Pulse Rate 67 62 65 Respiratory Rate 24 15 21 Blood Pressure 148/75 H 138/70 130/60 Pulse Oximetry 96 99 99 05/13/18 00:00 05/13/18 01:00 05/13/18 02:00 Temperature 98.7 F Pulse Rate 62 58 L 51 L Respiratory Rate 12 12 11 L Blood Pressure 110/56 L 93/52 L 96/51 L Pulse Oximetry 97 100 100 05/13/18 03:00 05/13/18 04:00 05/13/18 04:10 Temperature 98.8 F Pulse Rate 57 L 54 L 51 L Respiratory Rate 13 14 14 Blood Pressure 121/56 L 87/42 L 92/55 L Pulse Oximetry 98 100 100 05/13/18 05:00 05/13/18 06:00 05/13/18 07:00 Temperature Pulse Rate 54 L 49 L 49 L Respiratory Rate 10 L 10 L 14 Blood Pressure 96/51 L 116/65 Pulse Oximetry 99 100 100 05/13/18 08:00 05/13/18 09:00 05/13/18 10:00 Temperature Pulse Rate 56 L 77 50 L Respiratory Rate 10 L 52 H 11 L Blood Pressure 112/66 113/63 94/51 L Pulse Oximetry 100 99 100 05/13/18 11:00 05/13/18 12:00 05/13/18 12:51 Temperature 97.6 F Pulse Rate 54 L 53 L 71 Respiratory Rate 11 L 14 Blood Pressure 111/57 L 110/64 115/58 L Pulse Oximetry 100 100 05/13/18 13:00 Temperature Pulse Rate 74 Respiratory Rate 23 Blood Pressure Pulse Oximetry 99 Intake & Output 05/12/18 05/13/18 05/13/18 18:59 06:59 18:59 Intake Total 250 / 250 1000 / 1000 Balance 250 / 250 1000 / 1000 Weight 83.8 kg Intake: IV 250 / 250 1000 / 1000 NS Inj 1,000 ML @ 100 mls/hr IV 1000 / 1000 .CONT .Q10H [facility] Rx#:[id number] Osmitrol Inj 250 ML @ 250 mls/ 250 / 250 hr IV.SIG ONCE ONE Rx#:[id number] Oral 0 / 0 Other: Weight On Admission 83.5 kg Result Diagrams: 05/13/18 06:48 05/13/18 06:48 Imaging: Impressions Head MRI 05/12/18 19:06 CONCLUSION: 5.5 cm rim-enhancing mass seen in the posterior right cerebral hemisphere in the parietal occipital region with surrounding mass effect. This is thought to either represent an organizing hematoma with peripheral enhancement versus an underlying mass. There is definite evidence of some hemorrhage based on the signal characteristics. Follow-up would be recommended. Disinhibition Score: 14.00 Aggression Score: 14.00 Lability Score: 14.00 Agitated Behavior Total Score: 14 - Exam MEDICAL OFFICE PROFESSIONAL INSTRUCTOR: Awake alert oriented Hemodynamic/Cardiac: Hemodynamically stable and hypertensive somewhat Pulmonary/Respiratory: Bilateral breath sounds Abdomen/GI Nutrition: Abdomen soft active bowel sounds colostomy in place CT of abdomen and pelvis pending Renal/I&O: Renal function preserved the majority of the urine coming through the rectum which is clearly not a good thing Assessment and Plan Attestation: Critical care time 34 minutes
--- NOTE | 2018-05-13 15:42 | ECG ---
Date Performed: 05/12/2018 Time Performed: 19:56:14 PTAGE: 63 years EKG: SINUS BRADYCARDIA BORDERLINE ECG Since PREVIOUS TRACING , no significant change noted PREVIOUS TRACIN10/30/2016 11.45 DOCTOR: Hari Najera Interpretating Date/Time 05/13/2018 15:41:16
--- NOTE | 2018-05-13 19:22 | CT ---
EXAM DATE: 05/13/2018 7:10 PM EST AGE/SEX: 63 years / Male INDICATIONS: Colovesical fistula. CLINICAL DATA: This is the patient's initial encounter. Patient reports that signs and symptoms have been present for 1 day and indicates a pain score of 0/10. MEDICAL/SURGICAL HISTORY: Carcinoma, colon. Carcinoma, rectal. Hypertension. Colostomy. ORAL CONTRAST: No oral contrast ingested. RADIATION DOSE: 16.17 CTDI (mGy) COMPARISON: [facility] [place] ABDOMEN & PELVIS W/O CONTRAST, 12/01/2016. . TECHNIQUE: Multiple contiguous axial images were obtained through the abdomen and pelvis following b olus infusion of 90 ml Omnipaque 350 (iohexol) nonionic water-soluble contrast as a single exam dos e. No oral contrast ingested. Using automated exposure control and adjustment of the mA and/or kV ac cording to patient size, radiation dose was kept as low as reasonably achievable to obtain optimal di agnostic quality images. DICOM format image data is available electronically for review and comparis on. FINDINGS: Lower Lungs: 18 mm posterior lateral right lung base nodule and 17 mm posterior left lung base nodule , worrisome for metastatic disease. Liver: Small right lobe liver cysts, unchanged. Gallstone. No biliary ductal dilatation. Spleen: Homogeneous density without enlargement. Pancreas: Unremarkable without mass or calcification. Kidneys: Normal in size and shape. No evidence of mass or hydronephrosis. Adrenal Glands: Unremarkable. Aorta: The aorta and proximal iliac vessels are grossly unremarkable without aneurysmal dilation. Bowel/Mesentery: Right lower quadrant ileostomy. Small hiatal hernia. There does appear to be a smal l fistulous connection between the distal rectum and the bladder base opacified by excreted IV contra st in the urinary bladder. There is air in the nondependent bladder. Abdominal Wall: Right lower quadrant ileostomy Retroperitoneum: No evidence of adenopathy in the retrocrural, para-aortic, or deep pelvic regions. Bladder: See above Reproductive Organs: No abnormal masses or calcifications seen. Inguinal: The inguinal region is unremarkable without evidence of adenopathy. Bony Structures: Healed posterior right rib fractures. Degenerative changes in the spine and hips. CONCLUSION: 1. 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 2. 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
--- NOTE | 2018-05-13 19:44 | P.PNNS ---
Subjective Interval history: plan for surgery tomorrow for mass resection <JensDenise - Last Filed: 05/13/18 19:47> Physical Exam Vital signs: Vital Signs 05/12/18 21:27 05/12/18 21:49 05/12/18 22:00 Temperature 97.4 F L Pulse Rate 65 67 62 Respiratory Rate 18 24 15 Blood Pressure 131/69 148/75 H 138/70 Pulse Oximetry 98 96 99 05/12/18 23:00 05/13/18 00:00 05/13/18 01:00 Temperature 98.7 F Pulse Rate 65 62 58 L Respiratory Rate 21 12 12 Blood Pressure 130/60 110/56 L 93/52 L Pulse Oximetry 99 97 100 05/13/18 02:00 05/13/18 03:00 05/13/18 04:00 Temperature 98.8 F Pulse Rate 51 L 57 L 54 L Respiratory Rate 11 L 13 14 Blood Pressure 96/51 L 121/56 L 87/42 L Pulse Oximetry 100 98 100 05/13/18 04:10 05/13/18 05:00 05/13/18 06:00 Temperature Pulse Rate 51 L 54 L 49 L Respiratory Rate 14 10 L 10 L Blood Pressure 92/55 L 96/51 L Pulse Oximetry 100 99 100 05/13/18 07:00 05/13/18 08:00 05/13/18 09:00 Temperature Pulse Rate 49 L 56 L 77 Respiratory Rate 14 10 L 52 H Blood Pressure 116/65 112/66 113/63 Pulse Oximetry 100 100 99 05/13/18 10:00 05/13/18 11:00 05/13/18 12:00 Temperature 97.6 F Pulse Rate 50 L 54 L 53 L Respiratory Rate 11 L 11 L 14 Blood Pressure 94/51 L 111/57 L 110/64 Pulse Oximetry 100 100 100 05/13/18 12:51 05/13/18 13:00 05/13/18 16:00 Temperature 97.6 F Pulse Rate 71 74 Respiratory Rate 23 Blood Pressure 115/58 L 110/64 Pulse Oximetry 99 Intake & Output 05/13/18 05/13/18 05/14/18 06:59 18:59 06:59 Intake Total 250 / 250 3320 / 3320 Output Total 100 / 100 Balance 250 / 250 3220 / 3220 Weight 83.8 kg Intake: IV 250 / 250 1999 NS Inj 1,000 ML @ 100 mls/hr IV 1999 .CONT .Q10H KRZYSZTOF Rx#:[id number] Osmitrol Inj 250 ML @ 250 mls/ 250 / 250 hr IV.SIG ONCE ONE Rx#:[id number] Oral 1320 / 1320 Output: Stool Amount (Stoma) 100 / 100 Pre-Hospital: Right Lower 100 / 100 Abdomen Other: # Incontinent Voids 5 Weight On Admission 83.5 kg - Constitutional no acute distress - Routine HEENT Exam Head: Present: normocephalic - Routine Neurological Exam Present: alert - Detailed Neurological Exam: Coma Scale Verbal Response: Oriented Motor Response: Obey commands <Denise Colindres - Last Filed: 05/13/18 19:47> Vital signs: Vital Signs 05/15/18 15:00 05/15/18 16:00 05/15/18 17:00 Temperature 98.2 F Pulse Rate 64 56 L 57 L Respiratory Rate 30 H 17 19 Blood Pressure 127/63 110/55 L 125/60 Pulse Oximetry 98 100 100 05/15/18 18:00 05/15/18 19:00 05/15/18 20:00 Temperature 98.2 F Pulse Rate 50 L 55 L 63 Respiratory Rate 14 20 20 Blood Pressure 102/57 L 122/56 L 124/58 L Pulse Oximetry 97 98 97 05/15/18 20:17 05/15/18 21:00 05/15/18 22:00 Temperature Pulse Rate 55 L 69 Respiratory Rate 20 20 Blood Pressure 98/50 L 124/58 L Pulse Oximetry 97 97 97 05/15/18 23:00 05/16/18 00:00 05/16/18 01:00 Temperature 98.0 F Pulse Rate 53 L 48 L 47 L Respiratory Rate 17 15 14 Blood Pressure 117/54 L 134/61 116/57 L Pulse Oximetry 95 97 97 05/16/18 02:00 05/16/18 03:00 05/16/18 04:00 Temperature 98.1 F Pulse Rate 50 L 50 L 50 L Respiratory Rate 11 L 14 10 L Blood Pressure 116/54 L 112/56 L 69/43 L Pulse Oximetry 100 97 97 05/16/18 04:02 05/16/18 05:00 05/16/18 06:00 Temperature Pulse Rate 69 48 L 50 L Respiratory Rate 36 H 10 L 16 Blood Pressure 97/51 L 123/55 L 116/56 L Pulse Oximetry 99 99 96 05/16/18 07:00 05/16/18 08:00 05/16/18 08:25 Temperature 98.3 F Pulse Rate 48 L 50 L Respiratory Rate 10 L 13 Blood Pressure 123/60 109/52 L Pulse Oximetry 98 98 99 05/16/18 09:00 05/16/18 10:00 Temperature Pulse Rate 48 L 51 L Respiratory Rate 11 L 15 Blood Pressure 95/53 L 101/62 Pulse Oximetry 98 96 Intake & Output 05/15/18 05/16/18 05/16/18 18:59 06:59 18:59 Intake Total 852 / 852 345 / 345 Output Total 925 / 925 1615 / 1615 Balance -73 / -73 -1270 / -1270 Weight 86.8 kg Intake: IV 252 / 252 105 / 105 Sodium Chloride 23.4% Inj 188 147 / 147 MEQ In NS Inj 1,000 ML @ 20 mls /hr IV.CONT .Q24H KRZYSZTOF Rx#: [id number] Keppra Inj 500 MG In NS Inj 100 105 / 105 105 / 105 ML @ 400 mls/hr IV.SIG Q12H KRZYSZTOF Rx#:[id number] Oral 600 / 600 240 / 240 Output: Urine Amount (Catheter) 600 / 600 1300 / 1300 Indwelling Urethral Catheter 600 / 600 1300 / 1300 Stool Amount (Stoma) 300 / 300 300 / 300 Pre-Hospital: Right Lower 300 / 300 300 / 300 Abdomen Wound Drainage 25 / 25 15 / 15 # 1 Right Head LEYLA Drain 20 / 20 5 / 5 # 2 Right Head LEYLA Drain 5 / 5 Other: Date of Last Bowel Movement 05/15/18 05/15/18 05/16/18 Narrative: GENERAL: Mr Wong is well nourished, well developed male in NAD. SKIN: Focused skin assessment warm/dry. HEAD: Atraumatic. Normocephalic. EYES: Pupils equal and round. No scleral icterus. No injection or drainage. ENT: No nasal bleeding or discharge. Mucous membranes pink and moist. NECK: Trachea midline. No JVD. CARDIOVASCULAR: Regular rate and rhythm. No murmur appreciated. RESPIRATORY: No accessory muscle use. Clear to auscultation. Breath sounds equal bilaterally. GASTROINTESTINAL: Abdomen soft, non-tender, nondistended. Hepatic and splenic margins not palpable. MUSCULOSKELETAL: No obvious deformities. No clubbing. No cyanosis. No edema. NEUROLOGICAL: Awake and alert. No obvious cranial nerve deficits. Normal speech. 3/5 strength of left sided extremities. 5/5 strength of the left sided extremities. PSYCHIATRIC: Appropriate mood and affect; insight and judgment normal. - Urinary Catheter Management Indwelling Urethral Catheter Cath placed during this visit: yes Reason for continuing: Other continuation reason Insertion date: 05/15/18 Insertion time: 22:15 <Aj Fermin - Last Filed: 05/16/18 14:33> Assessment and Plan - Plan 63 year old male with 5.5 cm rim enhancing right parietal occipital mass with mass effect history of rectal CA Head MRI 05/12/18 19:06 CONCLUSION: 5.5 cm rim-enhancing mass seen in the posterior right cerebral hemisphere in the parietal occipital region with surrounding mass effect. This is thought to either represent an organizing hematoma with peripheral enhancement versus an underlying mass. There is definite evidence of some hemorrhage based on the signal characteristics. Follow-up would be recommended. Plan to OR tomorrow for craniotomy with mass resection NPO tonight SCDs and TEDs cont michaeladmei diaz for sz prophylaxis <Denise Colindres - Last Filed: 05/13/18 19:47> - Plan 63 YO M with PMH of rectal CA with a hemorrhagic mass. Head MRI 05/12/18 19:06 CONCLUSION: 5.5 cm rim-enhancing mass seen in the posterior right cerebral hemisphere in the parietal occipital region with surrounding mass effect. This is thought to either represent an organizing hematoma with peripheral enhancement versus an underlying mass. There is definite evidence of some hemorrhage based on the signal characteristics. Follow-up would be recommended. 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 Given its large size and mass effect, and midline shift, I recommend consideration to a surgical resection for decompression. All discussed the [id number] details of the surgical procedure, its indications, alternatives, risks, and potential complications. Risks and potential complications include, but are not limited to, infection, blood loss, CSF leak, partial or complete loss of sight in one or both eyes, paresis, paralysis, permanent pain or difficulty swallowing, loss of bowel or bladder function, complications from anesthesia, blood clot, stroke, myocardial infarction, or even . The possibility of nonoperative treatment has been offered. Pulmonary: aggressive pulmonary toilette, nasotracheal suction, and breathing treatments with nebulizers. Daily PT and OT Renal: Continue to monitor closely urine output, BUN and creatinine Endocrine: Continue to Monitor serial Acu checks and SSI as needed in detail ID continue to monitor for signs of infection Continue Protonix for stress ulcer prophylaxis Continue Melvin hose and SCD's for DVT prophylaxis <Aj Fermin - Last Filed: 05/16/18 14:33>
[2018-05-13] MEDS ORDERED: Chlorhexidine 4% Topical 120 APPLIC/120 ML Bottle TOPICAL ONE (19:50)
[2018-05-13] MEDS: Sodium Chloride 23.4% Inj 188 MEQ in Sod Chloride 0.9% Inj 1,000 ML IV.CONT SCH (21:55)
[2018-05-14] MEDS: Sod Chloride 0.9% Inj 1,000 ML IV.CONT SCH ×3 (02:51→23:00)
[2018-05-14 03:59] LABS: Hematocrit 36.4 % (39.0-51.0); Hemoglobin 13.1 gm/dL (13.0-17.0); Lymph # (Auto) 0.7 th/mm3 (1.0-4.8); Lymph % (Auto) 9.5 % (9.0-44.0); Mean Corpuscular Hemoglobin 32.2 pg (27.0-34.0); Mean Corpuscular Volume 89.2 fL (80.0-100.0); Mono # (Auto) 0.2 th/mm3 (0.0-0.9); Mono % (Auto) 2.7 % (0.0-8.0); Neut # (Auto) 6.1 th/mm3 (1.8-7.7); Neut % (Auto) 87.8 % (16.0-70.0); Platelet Count 161 th/mm3 (150-450); Red Blood Count 4.08 mil/mm3 (4.50-5.90); Red Cell Distribution Width 14.3 % (11.6-17.2); White Blood Count 6.9 th/mm3 (4.0-11.0)
[2018-05-14 04:14] LABS: Mean Corpuscular HGB Conc 36.2 % (32.0-36.0)
[2018-05-14 04:18] LABS: Calcium 8.2 mg/dL (8.5-10.1); Carbon Dioxide 24.9 meq/L (21.0-32.0); Potassium 4.3 meq/L (3.5-5.1)
[2018-05-14 05:01] LABS: Platelet Estimate Normal (Normal); Platelet Morphology Normal (Normal)
[2018-05-14] MEDS ORDERED: ceFAZolin 2 GM Premix Inj 2 GM/50 ML PIGGYBACK IV.SIG SCH ×2 (06:00→10:00)
[2018-05-14] MEDS ORDERED: Gelatin Size 100 Topical Foam ONE (07:11)
[2018-05-14] MEDS ORDERED: ceFAZolin 1 GM Premix Inj 0 GM/0 ML PIGGYBACK IV.SIG ONE (07:11)
[2018-05-14] MEDS ORDERED: Thrombin Topical Soln 5,000 UNIT Vial TOPICAL ONE (07:11)
[2018-05-14] MEDS ORDERED: Lidocaine 1%/Epinephrine 1:100,000 Inj 50 ML Vial ONE (07:11)
[2018-05-14] MEDS ORDERED: Artificial Tears Opth Oint 3.5 GM Tube ONE (07:20)
[2018-05-14] MEDS ORDERED: fentaNYL Citrate Inj 250 MCG/5 ML Ampul ONE (07:21)
[2018-05-14] MEDS ORDERED: niCARdipine Inj 25 MG/10 ML Vial ONE (07:45)
--- NOTE | 2018-05-14 08:15 | P.PNNPSY ---
- Progress Notes/Response to Treatment Contents of Sessions: Adjustment, Level of consciousness Time with Patient: 30 minutes Premorbid Psychological Status: Premorbid Cognitive, Emotional and Behavioral Status: Tenuous. 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 The patient has no prior psychiatric difficulties, as described above. Substance abuse history is unremarkable. Behavioral Reactions of Patient and Family/Support System: Unable to Assess. The patients family is experiencing ongoing issues of adjustment given the nature of the injury, and this aspect of recovery will require ongoing monitoring. Emotional/Behavioral Status of Patient and Family/Support System: Unable to Assess. Pertinent issues, if appropriate to this patients clinical care, are described in detail above. Maximizing Acute Care Outcome: It is recommended that the patient be monitored for emergent behavioral impulsivity as the medical condition evolves. This patients neuropathological challenges may limit rehabilitation potential going forward, and these challenges will require specialized therapeutic skills to maximize outcome. At this point in the recovery process, the patient does have cognitive capacity as the patient is able to understand a situation and its likely consequences, and he is able to manipulate information rationally. However, it is to be noted that persons with right hemisphere pathology tend to have awareness deficits, are impulsive and show left hemisensory neglect, and that these deficits will serve to attenuate their insight, awareness and judgment. Cognitive capacity will be assessed throughout the recovery process. Anticipated Problems: Ongoing areas of concern will include behavioral impulsivity, lack of insight and judgment, which is expected to improve with time and treatment. Treatment Plan: This clinician will continue to follow with you throughout the course of this patients critical care treatment, and I will be available to meet with the patients family/support system to facilitate their understanding and the ongoing care of their family member. The goals of neuropsychological intervention shall be both educational and supportive to the family/support system as is deemed clinically appropriate. Disinhibition Score: 21.00 Aggression Score: 14.00 Lability Score: 14.00 Agitated Behavior Total Score: 18 Impression: 63 year old male with left sided weakness and neuroimaging showing right hematoma with mass effect. Progress Note Narrative: Day 2 of hospitalization. The patient is reported to be awake, alert and confused. He was off the unit during rounds. Mild agitation noted with ABS of 18 (21,14,14). He will undergo craniotomy for mass lesion. I will follow. 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
[2018-05-14] MEDS: ceFAZolin 2 GM Premix Inj 2 GM/50 ML PIGGYBACK IV.SIG SCH ×3 (09:10→23:07)
[2018-05-14] MEDS ORDERED: Bisacodyl 10 MG Supp RECTAL PRN (09:36)
[2018-05-14] MEDS ORDERED: Zolpidem Tartrate 5 MG Tablet PO PRN (09:36)
--- NOTE | 2018-05-14 10:40 | P.PNCC ---
Subjective Brief History: 63-year-old male transferred from [facility] after request was made to the trauma service. Patient apparently fell about 4 times in last few days and he underwent CT scan of the hand over day or which revealed a bleed in the posterior fossa. In addition states that the patient has been getting more progressively senile in the last few months He has history of colon cancer with diverting colostomy but I do not know without a therapy was undertaken and patient does not know either Upon discussing this case with the physician at [facility] it was not quite clear if patient had a stroke and bled fell and bled or had some other lesion nonetheless I accepted the patient in transfer in order to sort these things out here. Upon patient's arrival I reviewed the available diagnostic studies including CT of the brain which reveals hemorrhage into the posterior fossa but not reaching the surface of the brain so is essentially in the substance of the brain and significant degree of swelling with lateral ventricular collapse on the right On arrival patient was awake alert and oriented slightly confused and his [place] is somewhat limited Patient underwent MRI of the brain with contrast and at this point there is no question in my mind that this patient has met static lesion in his right occipital area of the brain without a known primary Colon cancer usually does not go into the brain rather goes to the liver and lungs but in this particular sick situation could be anything In addition patient was noted to have excoriation of the perineum and today when patient went to the bathroom urine came out of his anus which 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 Will follow with neurosurgical lead on this and see how patient does 05/14/2018 Neurologically patient is intact although somewhat confused at times Hemodynamically stable prior to surgery To OR today for removal and decompression of the right posterior cerebral mass Bilateral breath sounds I reviewed the CT scan of abdomen and pelvis with Dr. 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 Either way decompression at this point is necessary and we will see how we do postop based on the pathologic diagnosis Addendum Postoperatively patient is doing well he is awake alert and oriented neurologically fully intact LEYLA drain serosanguineous drainage Patient was restarted on a diet IV fluids and further care as per clinical indices Objective Vital Signs / I&O: Vital Signs 05/13/18 11:00 05/13/18 12:00 05/13/18 12:51 Temperature 97.6 F Pulse Rate 54 L 53 L 71 Respiratory Rate 11 L 14 Blood Pressure 111/57 L 110/64 115/58 L Pulse Oximetry 100 100 05/13/18 13:00 05/13/18 16:00 05/13/18 19:00 Temperature 97.6 F Pulse Rate 74 60 Respiratory Rate 23 Blood Pressure 110/64 125/71 Pulse Oximetry 99 100 05/13/18 19:08 05/13/18 20:00 05/13/18 21:00 Temperature 97.6 F Pulse Rate 61 72 59 L Respiratory Rate 23 22 Blood Pressure 115/63 136/60 122/58 L Pulse Oximetry 100 92 L 98 05/13/18 22:00 05/13/18 23:00 05/14/18 00:00 Temperature Pulse Rate 54 L 52 L 69 Respiratory Rate 11 L 11 L Blood Pressure 112/62 101/52 L 114/68 Pulse Oximetry 99 97 95 05/14/18 01:00 05/14/18 02:00 05/14/18 02:06 Temperature 98.3 F Pulse Rate 50 L 50 L 49 L Respiratory Rate 11 L 16 19 Blood Pressure 114/53 L 112/63 112/63 Pulse Oximetry 100 100 95 05/14/18 03:00 05/14/18 03:45 05/14/18 04:00 Temperature Pulse Rate 47 L 48 L Respiratory Rate 11 L 56 H 12 Blood Pressure 104/56 L 115/59 L 116/58 L Pulse Oximetry 100 100 05/14/18 05:00 05/14/18 06:00 05/14/18 07:00 Temperature 98.1 F Pulse Rate 44 L 41 L 43 L Respiratory Rate 11 L 12 11 L Blood Pressure 95/46 L 119/59 L 107/56 L Pulse Oximetry 72 L 98 99 05/14/18 08:00 Temperature 97.6 F Pulse Rate 48 L Respiratory Rate 18 Blood Pressure 110/60 Pulse Oximetry 98 Intake & Output 05/13/18 05/14/18 05/14/18 18:59 06:59 18:59 Intake Total 3320 / 3320 1120 / 1120 Output Total 100 / 100 100 / 100 Balance 3220 / 3220 1020 / 1020 Weight 84.2 kg Intake: IV 2000 / 1999 1000 / 1000 NS Inj 1,000 ML @ 100 mls/hr IV 2000 / 2000 1000 / 1000 .CONT .Q10H KRZYSZTOF Rx#:[id number] Oral 1320 / 1320 120 / 120 Output: Stool Amount (Stoma) 100 / 100 100 / 100 Pre-Hospital: Right Lower 100 / 100 100 / 100 Abdomen Other: # Voids 6 # Incontinent Voids 5 6 Result Diagrams: 05/14/18 10:45 05/14/18 10:45 Imaging: Impressions Abdomen/Pelvis CT 05/13/18 00:00 CONCLUSION: 1. 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 2. 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 Pelvis is probably plastered and soaked in from radiation and hence the fistula Trying to fix this would be complete disaster and clearly counterproductive and should not be attempted Renal/I&O: Renal function preserved Assessment and Plan Attestation: Critical care time 32 minutes
[2018-05-14 11:29] LABS: Hematocrit 30.5 % (39.0-51.0); Lymph # (Auto) 0.5 th/mm3 (1.0-4.8); Lymph % (Auto) 9.2 % (9.0-44.0); Mean Corpuscular Hemoglobin 32.4 pg (27.0-34.0); Mean Corpuscular Volume 89.7 fL (80.0-100.0); Mono # (Auto) 0.2 th/mm3 (0.0-0.9); Mono % (Auto) 3.2 % (0.0-8.0); Neut # (Auto) 4.7 th/mm3 (1.8-7.7); Neut % (Auto) 87.6 % (16.0-70.0); Platelet Count 139 th/mm3 (150-450); Red Blood Count 3.41 mil/mm3 (4.50-5.90); Red Cell Distribution Width 14.3 % (11.6-17.2); White Blood Count 5.4 th/mm3 (4.0-11.0)
[2018-05-14 11:32] LABS: Mean Corpuscular HGB Conc 36.2 % (32.0-36.0)
[2018-05-14 11:45] LABS: Anion Gap 7 meq/L (5-15); Blood Urea Nitrogen 11 mg/dL (7-18); Calcium 7.5 mg/dL (8.5-10.1); Carbon Dioxide 22.6 meq/L (21.0-32.0); Chloride 112 meq/L (98-107); Glomerular Filtration Rate Greater Than 89 mL/min (>89); Glucose,Random 140 mg/dL (74-106); Sodium 142 meq/L (136-145)
[2018-05-14] MEDS ORDERED: fentaNYL Citrate Inj 100 MCG/2 ML Ampul ONE (12:26)
--- NOTE | 2018-05-14 12:42 | P.OP ---
Preoperative Diagnosis: Right parietal occipital mass Postoperative Diagnosis: Right parietal occipital mass Date of procedure: 05/14/18 Procedure: Right stereotactic, image-guided parietaloccipital craniotomy, with microsurgical resection of metastatic adenocarcinoma Anesthesia: YAHIRA Surgeon: Aj Fermin MD Recruiter Coordinator: Uzma Cruz Pathology: other (tumor) Operation and Findings: INTRAOPERATIVE FINDINGS Frozen section consistent with metastatic adenocarcinoma INDICATIONS FOR THE PROCEDURE Mr owens is a 63-year-old male with history of colon carcinoma who presented with left sided weakness. He was found to have a right parietal occipital lobe mass with severe edema, causing mass effect on the underlying brain and midline shift. Surgical resection was indicated. I have discussed with him the [id number] details of the procedure, its indications, alternatives, risks and potential complications with the patient including but not limited to the risk of infection, hemorrhage, paralysis, stroke, heart attack, even vegetative state or even the possibility of . The patient fully understands. All her questions were answered. No guarantees were given. She voiced requesting the procedure and provided informed consent. She has been offered the alternative of not having aggressive management. DETAILS OF THE SURGICAL PROCEDURE Prior to the surgery the patient underwent MRI of the brain according to the stereotactic protocol. The information was transferred to the workstation located in the operative suite. Preoperative registration was performed. The patient was then transferred to the operating room. After induction of general anesthesia, endotracheal intubation was done. A Mccormick catheter, bilateral CHAI hose, sequential compression devices were placed and kept throughout the procedure. The patient was positioned supine on a 30/80 table over gel mattress with her head in rigid fixation using the Byrd longwall headgate operator. All pressure points were carefully padded with egg crate mattress. The eyes were tapped shut after ointment was applied by the anesthesiologist to prevent corneal abrasion. A Shanel hugger was placed over the exposed lower body to maintain control of the core body temperature. The electrophysiological team placed the needles and electrodes in their proper location and baseline SSEP's evoked potentials were registered. The rigid reference body was attached to the longwall headgate operator and intraoperative registration was performed with a laser. The right parietal occipital region was shaved, prepped and draped in the usual sterile fashion. A standard curvilinear horseshoe incision was outlined on the scalp and infiltrated with 1% lidocaine with epinephrine. The skin incision was made with a #10 blade down to the level of the periosteum in the frontoparietal region and to the temporalis fascia in the temporal region. Jean-Claude clips were applied to the scalp. Using a Bovie, the temporalis fascia and muscle were incised and a subperiosteal dissection was performed reflecting the scalp flap anteriorly. The scalp was covered with a moist sponge and held in position using fish hooks. TPS drill was brought to the field and a bur hole was made in the parietal region using the craniotome attachment. Then, using the footplate attachment, a craniotomy flap was elevated. The dura was bulging, with mass effect due to the underlying tumor. The tumor was identified with the brainlab, and the dura was opened with a 15 blade and metzembaun sissors and retracted with 4-0 Neurolon sutures attached to the fascia. At this point of the procedure the operative microscope was draped in the usual sterile fashion and brought to the field. The rest of the surgical procedure was performed using microdissection technique with the exception of the closure. Under the operative microscope a small corticotomy was performed and the mass was resected using microsurgical dissection technique, with the micro-bipolar forceps, microscissors, micro-suction, and gentle irrigation. There was a cystic component which was evacuated by aspirating fluid using an angiocath. The specimen was sent to the lab for histological analysis. The frozen section was reported as consistent with metastatic adenocarcinoma. Specimen was also sent for final hystopathological annalysis. A gross total resection of the mass was achieved. Appropriate hemostasis was then secured using the bipolar semiautomatic stitcher operator. Then the incision was irrigated with saline solution. The dural edges were tacked to the bone. The craniotomy flap was then repositioned and secured in place using Striker plates and screws. A 7 millimeter Sb-Fregoso drain was then left in the subgaleal space and externalized through a separate stab incision. The incision was then closed in layers. 0 Vicryl in interrupted sutures were used to close the temporalis fascia. The galea was closed with interrupted 3- 0 Vicryl. Jose were applied to the skin. The drain was secured with a 3-0 nylon. At the end of the procedure, the sponge, needle and instrument counts were all correct. Estimated blood loss was less than 80 cc. No blood transfusion was given. No intraoperative complications occurred. The patient received prophylactic antibiotics. The patient was then transferred to the recovery room in stable condition. COMPLICATIONS None
--- NOTE | 2018-05-14 13:38 | XR ---
EXAM DATE: 05/14/2018 1:32 PM EST AGE/SEX: 63 years / Male INDICATIONS: Central line placement. CLINICAL DATA: This is the patient's subsequent encounter. Patient reports that signs and symptoms h ave been present for 3 days and indicates a pain score of Nonresponsive. MEDICAL/SURGICAL HISTORY: Non-responsive. Non-responsive. COMPARISON: [facility] – [place], CHEST SINGLE AP, 11/29/2016. . FINDINGS: Port in good position. Central line in good position. Heart is minimally enlarged. Mild interstitial edema is present. There is no pneumothorax. CONCLUSION: Central line in good position from the left subclavian approach. No pneumothorax. Electronically signed by: Prasad Peterson MD Board Certified Radiologist 05/14/2018 1:37 PM EST
--- NOTE | 2018-05-14 13:59 | CT ---
EXAM DATE: 05/14/2018 1:55 PM EST AGE/SEX: 63 years / Male INDICATIONS: Evaluate for neoplasm. CLINICAL DATA: This is the patient's subsequent encounter. Patient reports that signs and symptoms h ave been present for 3 days and indicates a pain score of 0/10. MEDICAL/SURGICAL HISTORY: Carcinoma, colon. Carcinoma, rectal. Hypertension. Colostomy. RADIATION DOSE: 56.38 CTDI (mGy) COMPARISON: [facility] – [place], [place] HEAD W & W/O CONTRAST, 05/12/2018. . TECHNIQUE: CT of the head without contrast. Using automated exposure control and adjustment of the mA and/or kV according to patient size, radiation dose was kept as low as reasonably achievable to ob tain optimal diagnostic quality images. DICOM format image data is available electronically for revi ew and comparison. FINDINGS: Status post biopsy and partial resection of a large cystic mass in the right parietal occipital with significant improvement in amount of mass effect. There is no hemorrhage. Moderate subdural air is pr esent. There continues to be vasogenic edema and effacement of cortical sulci in the right hemisphere . There is 5 mm of [id number] shift. Surgical drain is evident. Posterior fossa is unremarkable. . CONCLUSION: 1. 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 . Electronically signed by: Prasad Peterson MD Board Certified Radiologist 05/14/2018 1:58 PM EST
[2018-05-14] MEDS: Morphine Inj 4 MG/ML Vial IV.PUSH PRN ×2 (14:34→20:29)
[2018-05-14] MEDS: Senna/Docusate Sodium 8.6/50 MG Tablet PO SCH ×2 (17:47→20:07)
[2018-05-14] MEDS: levETIRAcetam 500 MG Tablet PO SCH (17:47)
[2018-05-15 03:31] LABS: Hematocrit 29.2 % (39.0-51.0); Hemoglobin 10.4 gm/dL (13.0-17.0); Lymph # (Auto) 0.5 th/mm3 (1.0-4.8); Lymph % (Auto) 4.2 % (9.0-44.0); Mean Corpuscular HGB Conc 35.8 % (32.0-36.0); Mean Corpuscular Hemoglobin 32.1 pg (27.0-34.0); Mean Corpuscular Volume 89.7 fL (80.0-100.0); Mean Platelet Volume 8.2 fL (7.0-11.0); Mono # (Auto) 0.6 th/mm3 (0.0-0.9); Mono % (Auto) 4.8 % (0.0-8.0); Neut # (Auto) 10.8 th/mm3 (1.8-7.7); Platelet Count 139 th/mm3 (150-450); Red Blood Count 3.25 mil/mm3 (4.50-5.90); Red Cell Distribution Width 14.5 % (11.6-17.2); White Blood Count 11.9 th/mm3 (4.0-11.0)
[2018-05-15] MEDS: Sodium Chloride 23.4% Inj 188 MEQ in Sod Chloride 0.9% Inj 1,000 ML IV.CONT SCH (03:34)
[2018-05-15 03:54] LABS: Calcium 7.8 mg/dL (8.5-10.1); Carbon Dioxide 28.3 meq/L (21.0-32.0); Potassium 4.3 meq/L (3.5-5.1)
[2018-05-15] MEDS: ceFAZolin 2 GM Premix Inj 2 GM/50 ML PIGGYBACK IV.SIG SCH (06:04)
[2018-05-15] MEDS: Sod Chloride 0.9% Inj 1,000 ML IV.CONT SCH ×3 (08:30→21:22)
[2018-05-15] MEDS: Senna/Docusate Sodium 8.6/50 MG Tablet PO SCH ×2 (09:02→21:22)
--- NOTE | 2018-05-15 09:08 | CT ---
EXAM DATE: 05/15/2018 8:48 AM EST AGE/SEX: 63 years / Male INDICATIONS: Follow up tumor resection. CLINICAL DATA: This is the patient's initial encounter. Patient reports that signs and symptoms have been present for 1 day and indicates a pain score of 0/10. MEDICAL/SURGICAL HISTORY: Carcinoma, colon. Hypertension. None. RADIATION DOSE: 47.54 CTDI (mGy) COMPARISON: [facility] – [place] HEAD W/O CONTRAST, 05/14/2018. [facility] – [place], [place] HEAD W & W/O CONTRAST, 05/12/2018. . TECHNIQUE: CT of the head without contrast. Using automated exposure control and adjustment of the mA and/or kV according to patient size, radiation dose was kept as low as reasonably achievable to ob tain optimal diagnostic quality images. DICOM format image data is available electronically for revi ew and comparison. FINDINGS: Cerebrum: The patient is status post right parietal craniotomy. There is small amount of air and hem orrhage at the surgical site appears unchanged from the other prior postoperative CT examination. The re is a subdural drain in place. There is edema seen in the right temporal parietal occipital regions . There is persistent mass effect on the right lateral ventricle. There is 8 mm of right to left midl ine shift. The basal cisterns are open. There is persistent subdural air seen over the right frontal lobe. The amount of subdural air has clearly decreased since the prior exam. No new areas of hemorrha ge or mass effect are seen. Posterior Fossa: The cerebellum and brainstem are intact. The 4th ventricle is midline. The cerebe llopontine angle is unremarkable. Extracranial: The visualized portion of the orbits is intact. Skin casa are seen in the right par ietal scalp. Skull: Again noted is the changes from prior right parietal craniotomy.. CONCLUSION: 1. Stable postoperative appearance following right craniotomy. There is persistent edema and mass ef fect. No worsening is seen 2. Reduction in the subdural air seen over the right frontal lobe. . Electronically signed by: Jadon Devlin MD Board Certified Radiologist 05/15/2018 9:06 AM EST
--- NOTE | 2018-05-15 10:38 | P.PNNS ---
Subjective Interval history: Doing well. Physical Exam Vital signs: Vital Signs 05/14/18 11:00 05/14/18 12:00 05/14/18 12:02 Temperature Pulse Rate 61 77 77 Respiratory Rate Blood Pressure 120/58 L 102/57 L Pulse Oximetry 100 96 97 05/14/18 12:03 05/14/18 12:06 05/14/18 12:14 Temperature 97.5 F L Pulse Rate 75 59 L 77 Respiratory Rate 14 Blood Pressure 94/52 L 101/55 L 100/55 L Pulse Oximetry 97 100 05/14/18 12:30 05/14/18 12:45 05/14/18 12:50 Temperature Pulse Rate 60 57 L Respiratory Rate 18 15 14 Blood Pressure 99/55 L 102/59 L Pulse Oximetry 95 97 05/14/18 13:00 05/14/18 13:15 05/14/18 13:32 Temperature 97.7 F Pulse Rate 55 L 52 L 58 L Respiratory Rate 14 12 Blood Pressure 104/57 L 120/58 L Pulse Oximetry 100 97 05/14/18 13:53 05/14/18 14:02 05/14/18 14:40 Temperature 97.5 F L Pulse Rate 63 57 L 65 Respiratory Rate Blood Pressure 127/56 L Pulse Oximetry 99 100 05/14/18 14:44 05/14/18 15:00 05/14/18 16:00 Temperature Pulse Rate 62 61 Respiratory Rate 14 26 H 17 Blood Pressure 127/56 L Pulse Oximetry 100 05/14/18 16:20 05/14/18 17:00 05/14/18 17:01 Temperature Pulse Rate 60 54 L 54 L Respiratory Rate 14 24 Blood Pressure 111/56 L Pulse Oximetry 100 100 05/14/18 18:00 05/14/18 18:50 05/14/18 19:00 Temperature 98.7 F Pulse Rate 49 L 51 L 53 L Respiratory Rate 16 15 Blood Pressure 111/56 L Pulse Oximetry 100 99 05/14/18 20:00 05/14/18 20:38 05/14/18 20:47 Temperature 97.7 F Pulse Rate 72 50 L Respiratory Rate 16 18 15 Blood Pressure 122/60 Pulse Oximetry 100 100 05/14/18 21:00 05/14/18 22:00 05/14/18 23:00 Temperature Pulse Rate 50 L 64 53 L Respiratory Rate 16 22 15 Blood Pressure 103/58 L 103/50 L Pulse Oximetry 98 100 98 05/15/18 00:00 05/15/18 01:00 05/15/18 02:00 Temperature 98.7 F Pulse Rate 54 L 48 L 55 L Respiratory Rate 14 13 14 Blood Pressure 101/51 L 93/47 L 103/59 L Pulse Oximetry 98 99 98 05/15/18 03:00 05/15/18 03:04 05/15/18 04:00 Temperature Pulse Rate 50 L 57 L 56 L Respiratory Rate 12 19 21 Blood Pressure 90/48 L 100/55 L Pulse Oximetry 97 97 99 05/15/18 05:00 05/15/18 06:00 05/15/18 09:01 Temperature Pulse Rate 51 L 58 L Respiratory Rate 12 24 Blood Pressure 108/57 L 90/53 L Pulse Oximetry 97 99 95 Intake & Output 05/14/18 05/15/18 05/15/18 18:59 06:59 18:59 Intake Total 4560 / 4560 2122 / 2122 Output Total 1780 / 1780 1129 / 1129 Balance 2780 / 2780 993 / 993 Weight 84.2 kg Intake: IV 1100 / 1100 1882 / 1882 NS Inj 1,000 ML @ 100 mls/hr IV 1000 / 1000 630 / 630 .CONT .Q10H KRZYSZTOF Rx#:[id number] Sodium Chloride 23.4% Inj 188 1047 / 1047 MEQ In NS Inj 1,000 ML @ 20 mls /hr IV.CONT .Q24H KRZYSZTOF Rx#: [id number] Ancef 2 GM Premix Inj 2 gm In 100 / 100 100 / 100 50 ml @ 100 mls/hr IV.SIG Q8H KRZYSZTOF Rx#:[id number] Keppra Inj 500 MG In NS Inj 100 105 / 105 ML @ 400 mls/hr IV.SIG Q12H KRZYSZTOF Rx#:[id number] Oral 860 / 860 240 / 240 Anesthesia Amount 2600 / 2600 Output: Estimated Blood Loss 100 / 100 Urine Amount (Catheter) 1595 / 1595 925 / 925 Indwelling Urethral Catheter 1595 / 1595 925 / 925 Stool Amount (Stoma) 150 / 150 Pre-Hospital: Right Lower 150 / 150 Abdomen Wound Drainage 85 / 54 / 54 # 1 Right Head LEYLA Drain 42 / 42 # 2 Right Head LEYLA Drain 0 / 0 Other: # Incontinent Voids 1 Narrative: A&O x 3 CN II-XII intact Motor 5/5 UE/LE Incision c/d/i 2 LEYLA's minimal output 10cc overnight - Urinary Catheter Management Indwelling Urethral Catheter Cath placed during this visit: yes Reason for continuing: Hourly intake/output Insertion date: 05/14/18 Insertion time: 09:00 Assessment and Plan - Plan 63 year old male with 5.5 cm rim enhancing right parietal occipital mass with mass effect history of rectal CA Head MRI 05/12/18 19:06 CONCLUSION: 5.5 cm rim-enhancing mass seen in the posterior right cerebral hemisphere in the parietal occipital region with surrounding mass effect. This is thought to either represent an organizing hematoma with peripheral enhancement versus an underlying mass. There is definite evidence of some hemorrhage based on the signal characteristics. Follow-up would be recommended. Plan to OR tomorrow for craniotomy with mass resection NPO tonight SCDs and TEDs cont nissa diaz for sz prophylaxis 05/15/18 Pod #1 right occipital craniotomy for tumor resection. Head CT post op looks good. Patient looks good. PT mobilize and d/c drains in AM, monitor in ICU overnight. emily azar
--- NOTE | 2018-05-15 17:50 | P.PNCC ---
Subjective Brief History: 63-year-old male transferred from [facility] after request was made to the trauma service. Patient apparently fell about 4 times in last few days and he underwent CT scan of the hand over day or which revealed a bleed in the posterior fossa. In addition states that the patient has been getting more progressively senile in the last few months He has history of colon cancer with diverting colostomy but I do not know without a therapy was undertaken and patient does not know either Upon discussing this case with the physician at [facility] it was not quite clear if patient had a stroke and bled fell and bled or had some other lesion nonetheless I accepted the patient in transfer in order to sort these things out here. Upon patient's arrival I reviewed the available diagnostic studies including CT of the brain which reveals hemorrhage into the posterior fossa but not reaching the surface of the brain so is essentially in the substance of the brain and significant degree of swelling with lateral ventricular collapse on the right On arrival patient was awake alert and oriented slightly confused and his Swedish is somewhat limited Patient underwent MRI of the brain with contrast and at this point there is no question in my mind that this patient has met static lesion in his right occipital area of the brain without a known primary Colon cancer usually does not go into the brain rather goes to the liver and lungs but in this particular sick situation could be anything In addition patient was noted to have excoriation of the perineum and today when patient went to the bathroom urine came out of his anus which 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 Will follow with neurosurgical lead on this and see how patient does 05/14/2018 Neurologically patient is intact although somewhat confused at times Hemodynamically stable prior to surgery To OR today for removal and decompression of the right posterior cerebral mass Bilateral breath sounds I reviewed the CT scan of abdomen and pelvis with Dr. 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 Either way decompression at this point is necessary and we will see how we do postop based on the pathologic diagnosis Addendum Postoperatively patient is doing well he is awake alert and oriented neurologically fully intact LEYLA drain serosanguineous drainage Patient was restarted on a diet IV fluids and further care as per clinical indices 05/15/2018 Patient is status post a right posterior craniotomy and removal of metastatic lesion Patient is awake alert and oriented Neurologically appears to be intact just like prior to surgery Incision is clean and dry Bilateral good breath sounds Abdomen soft with active bowel sounds Diet has been advanced patient should remain on Keppra and steroids and can be transferred to floor tomorrow It should be noted the patient's CEA level is elevated and pathology is consistent with cystic metastatic lesion of from the adenocarcinoma of the colon Oncology consulted to evaluate the patient In addition 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 and 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 carcinoma down there At this point patient is not a candidate in any way for any reversible repair or anything like that Objective Vital Signs / I&O: Vital Signs 05/14/18 18:00 05/14/18 18:50 05/14/18 19:00 Temperature 98.7 F Pulse Rate 49 L 51 L 53 L Respiratory Rate 16 15 Blood Pressure 111/56 L Pulse Oximetry 100 99 05/14/18 20:00 05/14/18 20:38 05/14/18 20:47 Temperature 97.7 F Pulse Rate 72 50 L Respiratory Rate 16 18 15 Blood Pressure 122/60 Pulse Oximetry 100 100 05/14/18 21:00 05/14/18 22:00 05/14/18 23:00 Temperature Pulse Rate 50 L 64 53 L Respiratory Rate 16 22 15 Blood Pressure 103/58 L 103/50 L Pulse Oximetry 98 100 98 05/15/18 00:00 05/15/18 01:00 05/15/18 02:00 Temperature 98.7 F Pulse Rate 54 L 48 L 55 L Respiratory Rate 14 13 14 Blood Pressure 101/51 L 93/47 L 103/59 L Pulse Oximetry 98 99 98 05/15/18 03:00 05/15/18 03:04 05/15/18 04:00 Temperature Pulse Rate 50 L 57 L 56 L Respiratory Rate 12 19 21 Blood Pressure 90/48 L 100/55 L Pulse Oximetry 97 97 99 05/15/18 05:00 05/15/18 06:00 05/15/18 07:00 Temperature Pulse Rate 51 L 58 L 49 L Respiratory Rate 12 24 13 Blood Pressure 108/57 L 90/53 L 92/46 L Pulse Oximetry 97 99 96 05/15/18 08:00 05/15/18 09:00 05/15/18 09:01 Temperature 98.0 F Pulse Rate 61 47 L Respiratory Rate 31 H 14 Blood Pressure 108/56 L 99/55 L Pulse Oximetry 95 96 95 05/15/18 10:00 05/15/18 10:53 05/15/18 11:00 Temperature Pulse Rate 61 61 73 Respiratory Rate 28 H 32 H 37 H Blood Pressure 109/59 L 99/52 L Pulse Oximetry 98 96 05/15/18 12:00 Temperature 97.7 F Pulse Rate 47 L Respiratory Rate 11 L Blood Pressure 101/56 L Pulse Oximetry 100 Intake & Output 05/14/18 05/15/18 05/15/18 18:59 06:59 18:59 Intake Total 4560 / 4560 2122 / 2122 252 / 252 Output Total 1780 / 1780 1129 / 1129 Balance 2780 / 2780 993 / 993 252 / 252 Weight 84.2 kg Intake: IV 1100 / 1100 1882 / 1882 252 / 252 NS Inj 1,000 ML @ 100 mls/hr IV 1000 / 1000 630 / 630 .CONT .Q10H KRZYSZTOF Rx#:[id number] Sodium Chloride 23.4% Inj 188 1047 / 1047 147 / 147 MEQ In NS Inj 1,000 ML @ 20 mls /hr IV.CONT .Q24H KRZYSZTOF Rx#: [id number] Ancef 2 GM Premix Inj 2 gm In 100 / 100 100 / 100 50 ml @ 100 mls/hr IV.SIG Q8H KRZYSZTOF Rx#:[id number] Keppra Inj 500 MG In NS Inj 100 105 / 105 105 / 105 ML @ 400 mls/hr IV.SIG Q12H KRZYSZTOF Rx#:[id number] Oral 860 / 860 240 / 240 Anesthesia Amount 2600 / 2600 Output: Estimated Blood Loss 100 / 100 Urine Amount (Catheter) 1595 / 1595 925 / 925 Indwelling Urethral Catheter 1595 / 1595 925 / 925 Stool Amount (Stoma) 150 / 150 Pre-Hospital: Right Lower 150 / 150 Abdomen Wound Drainage 85 / 85 54 / 54 # 1 Right Head LEYLA Drain 85 / 85 42 / 42 # 2 Right Head LEYLA Drain 0 / 0 Other: # Incontinent Voids 1 Result Diagrams: 05/15/18 03:11 05/15/18 03:11 Imaging: Impressions Head CT 05/15/18 00:00 CONCLUSION: 1. Stable postoperative appearance following right craniotomy. There is persistent edema and mass effect. No worsening is seen 2. Reduction in the subdural air seen over the right frontal lobe. . Disinhibition Score: 19.25 Aggression Score: 14.00 Lability Score: 14.00 Agitated Behavior Total Score: 17 Assessment and Plan Attestation: Critical care time 32 minutes
[2018-05-16] MEDS: Sod Chloride 0.9% Inj 1,000 ML IV.CONT SCH ×2 (03:47→19:42)
[2018-05-16 05:33] LABS: Baso % (Auto) 0.3 % (0.0-2.0); Hematocrit 29.8 % (39.0-51.0); Hemoglobin 10.6 gm/dL (13.0-17.0); Lymph # (Auto) 0.6 th/mm3 (1.0-4.8); Lymph % (Auto) 6.4 % (9.0-44.0); Mean Corpuscular HGB Conc 35.5 % (32.0-36.0); Mean Corpuscular Hemoglobin 32.2 pg (27.0-34.0); Mean Corpuscular Volume 90.5 fL (80.0-100.0); Mono # (Auto) 0.5 th/mm3 (0.0-0.9); Mono % (Auto) 5.5 % (0.0-8.0); Neut # (Auto) 7.8 th/mm3 (1.8-7.7); Neut % (Auto) 87.8 % (16.0-70.0); Platelet Count 129 th/mm3 (150-450); Red Blood Count 3.29 mil/mm3 (4.50-5.90); Red Cell Distribution Width 14.4 % (11.6-17.2); White Blood Count 8.8 th/mm3 (4.0-11.0)
[2018-05-16 05:50] LABS: Calcium 7.6 mg/dL (8.5-10.1); Carbon Dioxide 28.3 meq/L (21.0-32.0); Potassium 4.3 meq/L (3.5-5.1)
--- NOTE | 2018-05-16 06:31 | P.PNCC ---
Subjective Brief History: 63-year-old male transferred from [facility] after request was made to the trauma service. Patient apparently fell about 4 times in last few days and he underwent CT scan of the hand over day or which revealed a bleed in the posterior fossa. In addition states that the patient has been getting more progressively senile in the last few months He has history of colon cancer with diverting colostomy but I do not know without a therapy was undertaken and patient does not know either Upon discussing this case with the physician at [facility] it was not quite clear if patient had a stroke and bled fell and bled or had some other lesion nonetheless I accepted the patient in transfer in order to sort these things out here. Upon patient's arrival I reviewed the available diagnostic studies including CT of the brain which reveals hemorrhage into the posterior fossa but not reaching the surface of the brain so is essentially in the substance of the brain and significant degree of swelling with lateral ventricular collapse on the right On arrival patient was awake alert and oriented slightly confused and his [place]ish is somewhat limited Patient underwent MRI of the brain with contrast and at this point there is no question in my mind that this patient has met static lesion in his right occipital area of the brain without a known primary Colon cancer usually does not go into the brain rather goes to the liver and lungs but in this particular sick situation could be anything In addition patient was noted to have excoriation of the perineum and today when patient went to the bathroom urine came out of his anus which 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 Will follow with neurosurgical lead on this and see how patient does 05/14/2018 Neurologically patient is intact although somewhat confused at times Hemodynamically stable prior to surgery To OR today for removal and decompression of the right posterior cerebral mass Bilateral breath sounds I reviewed the CT scan of abdomen and pelvis with Dr. 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 Either way decompression at this point is necessary and we will see how we do postop based on the pathologic diagnosis Addendum Postoperatively patient is doing well he is awake alert and oriented neurologically fully intact LEYLA drain serosanguineous drainage Patient was restarted on a diet IV fluids and further care as per clinical indices 05/15/2018 Patient is status post a right posterior craniotomy and removal of metastatic lesion Patient is awake alert and oriented Neurologically appears to be intact just like prior to surgery Incision is clean and dry Bilateral good breath sounds Abdomen soft with active bowel sounds Diet has been advanced patient should remain on Keppra and steroids and can be transferred to floor tomorrow It should be noted the patient's CEA level is elevated and pathology is consistent with cystic metastatic lesion of from the adenocarcinoma of the colon Oncology consulted to evaluate the patient In addition 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 and 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 carcinoma down there At this point patient is not a candidate in any way for any reversible repair or anything like that 05/16/2018 Patient neurologically remains intact Awake alert and oriented occasionally confused Bilateral good breath sounds Hemodynamically remained stable Abdomen soft active bowel sounds tolerates diet normally Craniotomy incision is clean and dry Patient had urinary retention after removal of the Mccormick catheter considering that he has a rectovesical fistula and is passing urine per rectum if not drained through the urethra Patient should not have his Mccormick removed at this point considering the metastatic disease bedridden condition and rectovesical fistula Awaiting bed on the floor Patient can transfer to floor anytime Objective Vital Signs / I&O: Vital Signs 05/15/18 07:00 05/15/18 08:00 05/15/18 09:00 Temperature 98.0 F Pulse Rate 49 L 60 47 L Respiratory Rate 13 31 H 14 Blood Pressure 92/46 L 108/56 L 99/55 L Pulse Oximetry 96 95 96 05/15/18 09:01 05/15/18 10:00 05/15/18 10:53 Temperature Pulse Rate 60 61 Respiratory Rate 28 H 32 H Blood Pressure 109/59 L Pulse Oximetry 95 98 05/15/18 11:00 05/15/18 12:00 05/15/18 13:00 Temperature 97.7 F Pulse Rate 73 46 L 51 L Respiratory Rate 37 H 11 L 11 L Blood Pressure 99/52 L 101/56 L 95/46 L Pulse Oximetry 96 100 100 05/15/18 14:00 05/15/18 15:00 05/15/18 16:00 Temperature 98.2 F Pulse Rate 54 L 64 56 L Respiratory Rate 10 L 30 H 17 Blood Pressure 100/63 127/63 110/55 L Pulse Oximetry 99 98 100 05/15/18 17:00 05/15/18 18:00 05/15/18 19:00 Temperature Pulse Rate 57 L 50 L 55 L Respiratory Rate 19 14 20 Blood Pressure 125/60 102/57 L 122/56 L Pulse Oximetry 100 97 98 05/15/18 20:00 05/15/18 20:17 05/15/18 21:00 Temperature 98.2 F Pulse Rate 63 55 L Respiratory Rate 20 20 Blood Pressure 124/58 L 98/50 L Pulse Oximetry 97 97 97 05/15/18 22:00 05/15/18 23:00 05/16/18 00:00 Temperature 98.0 F Pulse Rate 69 53 L 48 L Respiratory Rate 20 17 15 Blood Pressure 124/58 L 117/54 L 134/61 Pulse Oximetry 97 95 97 05/16/18 01:00 05/16/18 02:00 05/16/18 03:00 Temperature Pulse Rate 47 L 50 L 50 L Respiratory Rate 14 11 L 14 Blood Pressure 116/57 L 116/54 L 112/56 L Pulse Oximetry 97 100 97 05/16/18 04:00 05/16/18 04:02 05/16/18 05:00 Temperature 98.1 F Pulse Rate 50 L 69 48 L Respiratory Rate 10 L 36 H 10 L Blood Pressure 69/43 L 97/51 L 123/55 L Pulse Oximetry 97 99 99 05/16/18 06:00 Temperature Pulse Rate 50 L Respiratory Rate 16 Blood Pressure 116/56 L Pulse Oximetry 96 Intake & Output 05/15/18 05/15/18 05/16/18 06:59 18:59 06:59 Intake Total 2122 / 2122 852 / 852 345 / 345 Output Total 1129 / 1129 925 / 925 1615 / 1615 Balance 993 / 993 -73 / -73 -1270 / -1270 Weight 84.2 kg 86.8 kg Intake: IV 1882 / 1882 252 / 252 105 / 105 NS Inj 1,000 ML @ 100 mls/hr IV 630 / 630 .CONT .Q10H [facility] Rx#:[id number] Sodium Chloride 23.4% Inj 188 1047 / 1047 147 / 147 MEQ In NS Inj 1,000 ML @ 20 mls /hr IV.CONT .Q24H [facility] Rx#: [id number] Ancef 2 GM Premix Inj 2 gm In 100 / 100 50 ml @ 100 mls/hr IV.SIG Q8H [facility] Rx#:[id number] Keppra Inj 500 MG In NS Inj 100 105 / 105 105 / 105 105 / 105 ML @ 400 mls/hr IV.SIG Q12H [facility] Rx#:[id number] Oral 240 / 240 600 / 600 240 / 240 Output: Urine Amount (Catheter) 925 / 925 600 / 600 1300 / 1300 Indwelling Urethral Catheter 925 / 925 600 / 600 1300 / 1300 Stool Amount (Stoma) 150 / 150 300 / 300 300 / 300 Pre-Hospital: Right Lower 150 / 150 300 / 300 300 / 300 Abdomen Wound Drainage 54 / 54 25 / 25 15 / 15 # 1 Right Head LEYLA Drain 42 / 42 5 / 5 # 2 Right Head LEYLA Drain 5 / 5 10 Other: # Incontinent Voids 1 Date of Last Bowel Movement 05/15/18 05/15/18 Result Diagrams: 05/16/18 05:20 05/16/18 05:20 Imaging: Impressions Head CT 05/15/18 00:00 CONCLUSION: 1. Stable postoperative appearance following right craniotomy. There is persistent edema and mass effect. No worsening is seen 2. Reduction in the subdural air seen over the right frontal lobe. . Disinhibition Score: 14.00 Aggression Score: 14.00 Lability Score: 14.00 Agitated Behavior Total Score: 14 Assessment and Plan Attestation: Critical care 34 minutes
[2018-05-16] MEDS: Senna/Docusate Sodium 8.6/50 MG Tablet PO SCH ×2 (09:23→20:50)
--- NOTE | 2018-05-16 11:57 | P.PNNS ---
Subjective Interval history: Doing well Physical Exam Vital signs: Vital Signs 05/15/18 12:00 05/15/18 13:00 05/15/18 14:00 Temperature 97.7 F Pulse Rate 46 L 51 L 54 L Respiratory Rate 11 L 11 L 10 L Blood Pressure 101/56 L 95/46 L 100/63 Pulse Oximetry 100 100 99 05/15/18 15:00 05/15/18 16:00 05/15/18 17:00 Temperature 98.2 F Pulse Rate 64 56 L 57 L Respiratory Rate 30 H 17 19 Blood Pressure 127/63 110/55 L 125/60 Pulse Oximetry 98 100 100 05/15/18 18:00 05/15/18 19:00 05/15/18 20:00 Temperature 98.2 F Pulse Rate 50 L 55 L 63 Respiratory Rate 14 20 20 Blood Pressure 102/57 L 122/56 L 124/58 L Pulse Oximetry 97 98 97 05/15/18 20:17 05/15/18 21:00 05/15/18 22:00 Temperature Pulse Rate 55 L 69 Respiratory Rate 20 20 Blood Pressure 98/50 L 124/58 L Pulse Oximetry 97 97 97 05/15/18 23:00 05/16/18 00:00 05/16/18 01:00 Temperature 98.0 F Pulse Rate 53 L 48 L 47 L Respiratory Rate 17 15 14 Blood Pressure 117/54 L 134/61 116/57 L Pulse Oximetry 95 97 97 05/16/18 02:00 05/16/18 03:00 05/16/18 04:00 Temperature 98.1 F Pulse Rate 50 L 50 L 50 L Respiratory Rate 11 L 14 10 L Blood Pressure 116/54 L 112/56 L 69/43 L Pulse Oximetry 100 97 97 05/16/18 04:02 05/16/18 05:00 05/16/18 06:00 Temperature Pulse Rate 69 48 L 50 L Respiratory Rate 36 H 10 L 16 Blood Pressure 97/51 L 123/55 L 116/56 L Pulse Oximetry 99 99 96 05/16/18 07:00 05/16/18 08:00 05/16/18 08:25 Temperature 98.3 F Pulse Rate 48 L 50 L Respiratory Rate 10 L 13 Blood Pressure 123/60 109/52 L Pulse Oximetry 98 98 99 05/16/18 09:00 05/16/18 10:00 Temperature Pulse Rate 48 L 51 L Respiratory Rate 11 L 15 Blood Pressure 95/53 L 101/62 Pulse Oximetry 98 96 Intake & Output 05/15/18 05/16/18 05/16/18 18:59 06:59 18:59 Intake Total 852 / 852 345 / 345 Output Total 925 / 925 1615 / 1615 Balance -73 / -73 -1270 / -1270 Weight 86.8 kg Intake: IV 252 / 252 105 / 105 Sodium Chloride 23.4% Inj 188 147 / 147 MEQ In NS Inj 1,000 ML @ 20 mls /hr IV.CONT .Q24H [facility] Rx#: [id number] Keppra Inj 500 MG In NS Inj 100 105 / 105 105 / 105 ML @ 400 mls/hr IV.SIG Q12H [facility] Rx#:[id number] Oral 600 / 600 240 / 240 Output: Urine Amount (Catheter) 600 / 600 1300 / 1300 Indwelling Urethral Catheter 600 / 600 1300 / 1300 Stool Amount (Stoma) 300 / 300 300 / 300 Pre-Hospital: Right Lower 300 / 300 300 / 300 Abdomen Wound Drainage 25 / 25 15 / 15 # 1 Right Head ELLI Drain 20 / 20 5 / 5 # 2 Right Head ELLI Drain 5 / 5 10 / 10 Other: Date of Last Bowel Movement 05/15/18 05/15/18 05/16/18 Narrative: A&O x 3 CN II-XII intact Motor 5/5 UE/LE Incision c/d/i 2 ELLI's minimal output 10cc overnight - Urinary Catheter Management Indwelling Urethral Catheter Cath placed during this visit: yes Reason for continuing: Other continuation reason Insertion date: 05/15/18 Insertion time: 22:15 Assessment and Plan - Plan 63 year old male with 5.5 cm rim enhancing right parietal occipital mass with mass effect history of rectal CA Head MRI 05/12/18 19:06 CONCLUSION: 5.5 cm rim-enhancing mass seen in the posterior right cerebral hemisphere in the parietal occipital region with surrounding mass effect. This is thought to either represent an organizing hematoma with peripheral enhancement versus an underlying mass. There is definite evidence of some hemorrhage based on the signal characteristics. Follow-up would be recommended. Plan to OR tomorrow for craniotomy with mass resection NPO tonight SCDs and TEDs cont decadron keppra for sz prophylaxis 05/15/18 Pod #1 right occipital craniotomy for tumor resection. Head CT post op looks good. Patient looks good. PT mobilize and d/c drains in AM, monitor in ICU overnight. decadron, keppra 05/16/18 D/c elli drains Transfer to floor Contine keppra 500mg BID decadron wean down
[2018-05-17] MEDS: Sod Chloride 0.9% Inj 1,000 ML IV.CONT SCH ×3 (01:29→21:07)
[2018-05-17] MEDS: Senna/Docusate Sodium 8.6/50 MG Tablet PO SCH ×2 (08:12→21:06)
--- NOTE | 2018-05-17 11:42 | P.PNCC ---
Subjective Brief History: 63-year-old male transferred from [facility] after request was made to the trauma service. Patient apparently fell about 4 times in last few days and he underwent CT scan of the hand over day or which revealed a bleed in the posterior fossa. In addition states that the patient has been getting more progressively senile in the last few months He has history of colon cancer with diverting colostomy but I do not know without a therapy was undertaken and patient does not know either Upon discussing this case with the physician at [facility] it was not quite clear if patient had a stroke and bled fell and bled or had some other lesion nonetheless I accepted the patient in transfer in order to sort these things out here. Upon patient's arrival I reviewed the available diagnostic studies including CT of the brain which reveals hemorrhage into the posterior fossa but not reaching the surface of the brain so is essentially in the substance of the brain and significant degree of swelling with lateral ventricular collapse on the right On arrival patient was awake alert and oriented slightly confused and his Portuguese is somewhat limited Patient underwent MRI of the brain with contrast and at this point there is no question in my mind that this patient has met static lesion in his right occipital area of the brain without a known primary Colon cancer usually does not go into the brain rather goes to the liver and lungs but in this particular sick situation could be anything In addition patient was noted to have excoriation of the perineum and today when patient went to the bathroom urine came out of his anus which 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 Will follow with neurosurgical lead on this and see how patient does 05/14/2018 Neurologically patient is intact although somewhat confused at times Hemodynamically stable prior to surgery To OR today for removal and decompression of the right posterior cerebral mass Bilateral breath sounds I reviewed the CT scan of abdomen and pelvis with Dr. 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 Either way decompression at this point is necessary and we will see how we do postop based on the pathologic diagnosis Addendum Postoperatively patient is doing well he is awake alert and oriented neurologically fully intact LEYLA drain serosanguineous drainage Patient was restarted on a diet IV fluids and further care as per clinical indices 05/15/2018 Patient is status post a right posterior craniotomy and removal of metastatic lesion Patient is awake alert and oriented Neurologically appears to be intact just like prior to surgery Incision is clean and dry Bilateral good breath sounds Abdomen soft with active bowel sounds Diet has been advanced patient should remain on Keppra and steroids and can be transferred to floor tomorrow It should be noted the patient's CEA level is elevated and pathology is consistent with cystic metastatic lesion of from the adenocarcinoma of the colon Oncology consulted to evaluate the patient In addition 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 and 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 carcinoma down there At this point patient is not a candidate in any way for any reversible repair or anything like that 05/16/2018 Patient neurologically remains intact Awake alert and oriented occasionally confused Bilateral good breath sounds Hemodynamically remained stable Abdomen soft active bowel sounds tolerates diet normally Craniotomy incision is clean and dry Patient had urinary retention after removal of the Mccormick catheter considering that he has a rectovesical fistula and is passing urine per rectum if not drained through the urethra Patient should not have his Mccormick removed at this point considering the metastatic disease bedridden condition and rectovesical fistula Awaiting bed on the floor Patient can transfer to floor anytime 05/17/2018 Patient is awake alert and oriented LEYLA drains removed In face of rectovesical fistula Mccormick catheter should remain in place and when patient is discharged he is able to catheterize himself Transfer to floor but no floor beds were available yesterday Nothing to add to care at this time Oncology help is greatly appreciated Objective Vital Signs / I&O: Vital Signs 05/16/18 12:00 05/16/18 13:00 05/16/18 14:00 Temperature 98.3 F Pulse Rate 72 52 L 58 L Respiratory Rate 46 H 11 L 24 Blood Pressure 109/45 L 128/62 Pulse Oximetry 100 97 98 05/16/18 14:49 05/16/18 15:00 05/16/18 16:00 Temperature Pulse Rate 56 L 62 62 Respiratory Rate 26 H 20 31 H Blood Pressure 127/58 L 131/58 L 118/62 Pulse Oximetry 98 86 L 05/16/18 17:00 05/16/18 18:00 05/16/18 19:00 Temperature Pulse Rate 60 56 L 65 Respiratory Rate 31 H 18 27 H Blood Pressure 122/56 L 121/58 L 115/56 L Pulse Oximetry 99 100 98 05/16/18 20:00 05/16/18 21:00 05/16/18 22:00 Temperature 99.6 F Pulse Rate 64 60 53 L Respiratory Rate 29 H 17 16 Blood Pressure 135/66 132/61 101/51 L Pulse Oximetry 97 98 96 05/16/18 23:00 05/17/18 00:00 05/17/18 01:00 Temperature 98.6 F Pulse Rate 55 L 50 L 69 Respiratory Rate 16 12 14 Blood Pressure 115/59 L 101/54 L 111/55 L Pulse Oximetry 97 96 98 05/17/18 02:00 05/17/18 03:00 05/17/18 04:00 Temperature 98.6 F Pulse Rate 50 L 47 L 49 L Respiratory Rate 12 12 12 Blood Pressure 100/54 L 119/60 132/63 Pulse Oximetry 97 96 97 05/17/18 05:00 05/17/18 06:00 05/17/18 07:00 Temperature Pulse Rate 50 L 50 L 62 Respiratory Rate 14 17 25 H Blood Pressure 114/54 L 130/59 L 117/57 L Pulse Oximetry 95 96 96 Intake & Output 05/16/18 05/17/18 05/17/18 18:59 06:59 18:59 Intake Total 820 / 820 975 / 975 Output Total 1999 Balance -1180 / -1180 -1025 / -1025 Weight 85.3 kg Intake: IV 100 / 100 975 / 975 NS Inj 1,000 ML @ 100 mls/hr IV 870 / 870 .CONT .Q10H [facility] Rx#:[id number] Keppra Inj 500 MG In NS Inj 100 100 / 100 105 / 105 ML @ 400 mls/hr IV.SIG Q12H [facility] Rx#:[id number] Oral 720 / 720 Output: Stool 500 / 500 Urine Amount (Catheter) 1500 / 1500 1450 / 1450 Indwelling Urethral Catheter 1500 / 1500 1450 / 1450 Stool Amount (Stoma) 550 / 550 Pre-Hospital: Right Lower 550 / 550 Abdomen Other: Date of Last Bowel Movement 05/16/18 05/16/18 05/16/18 Result Diagrams: 05/16/18 05:20 05/16/18 05:20 Disinhibition Score: 14.00 Aggression Score: 14.00 Lability Score: 14.00 Agitated Behavior Total Score: 14
--- NOTE | 2018-05-17 11:51 | P.PNNS ---
Subjective Interval history: May 17, 2018 The patient has remained stable overnight. He has no real complaints. He denies any headache. Physical Exam Vital signs: Vital Signs 05/16/18 12:00 05/16/18 13:00 05/16/18 14:00 Temperature 98.3 F Pulse Rate 72 52 L 58 L Respiratory Rate 46 H 11 L 24 Blood Pressure 109/45 L 128/62 Pulse Oximetry 100 97 98 05/16/18 14:49 05/16/18 15:00 05/16/18 16:00 Temperature Pulse Rate 56 L 62 62 Respiratory Rate 26 H 20 31 H Blood Pressure 127/58 L 131/58 L 118/62 Pulse Oximetry 98 86 L 05/16/18 17:00 05/16/18 18:00 05/16/18 19:00 Temperature Pulse Rate 60 56 L 65 Respiratory Rate 31 H 18 27 H Blood Pressure 122/56 L 121/58 L 115/56 L Pulse Oximetry 99 100 98 05/16/18 20:00 05/16/18 21:00 05/16/18 22:00 Temperature 99.6 F Pulse Rate 64 60 53 L Respiratory Rate 29 H 17 16 Blood Pressure 135/66 132/61 101/51 L Pulse Oximetry 97 98 96 05/16/18 23:00 05/17/18 00:00 05/17/18 01:00 Temperature 98.6 F Pulse Rate 55 L 50 L 69 Respiratory Rate 16 12 14 Blood Pressure 115/59 L 101/54 L 111/55 L Pulse Oximetry 97 96 98 05/17/18 02:00 05/17/18 03:00 05/17/18 04:00 Temperature 98.6 F Pulse Rate 50 L 47 L 49 L Respiratory Rate 12 12 12 Blood Pressure 100/54 L 119/60 132/63 Pulse Oximetry 97 96 97 05/17/18 05:00 05/17/18 06:00 05/17/18 07:00 Temperature Pulse Rate 50 L 50 L 62 Respiratory Rate 14 17 25 H Blood Pressure 114/54 L 130/59 L 117/57 L Pulse Oximetry 95 96 96 Intake & Output 05/16/18 05/17/18 05/17/18 18:59 06:59 18:59 Intake Total 820 / 820 975 / 975 Output Total 1999 Balance -1180 / -1180 -1025 / -1025 Weight 85.3 kg Intake: IV 100 / 100 975 / 975 NS Inj 1,000 ML @ 100 mls/hr IV 870 / 870 .CONT .Q10H [facility] Rx#:[id number] Keppra Inj 500 MG In NS Inj 100 100 / 100 105 / 105 ML @ 400 mls/hr IV.SIG Q12H [facility] Rx#:[id number] Oral 720 / 720 Output: Stool 500 / 500 Urine Amount (Catheter) 1500 / 1500 1450 / 1450 Indwelling Urethral Catheter 1500 / 1500 1450 / 1450 Stool Amount (Stoma) 550 / 550 Pre-Hospital: Right Lower 550 / 550 Abdomen Other: Date of Last Bowel Movement 05/16/18 05/16/18 05/16/18 - Routine Neurological Exam May 17, 2018 The patient is sitting up in bed eating breakfast as I enter the room. He is in no acute distress. On neurological examination, he is awake and alert. He is oriented by 3. Cognitive functions grossly intact. His speech is fluent. Cranial nerve testing 2 through 12 is grossly intact. He may have residual visual field cut. There are no focal motor nor sensory deficits. He apparently is ambulatory. The wound is clear. - Urinary Catheter Management Indwelling Urethral Catheter Cath placed during this visit: yes Reason for continuing: Other continuation reason Insertion date: 05/15/18 Insertion time: 22:15 Assessment and Plan - Plan 63 YO M with PMH of rectal CA with a hemorrhagic mass. Head MRI 05/12/18 19:06 CONCLUSION: 5.5 cm rim-enhancing mass seen in the posterior right cerebral hemisphere in the parietal occipital region with surrounding mass effect. This is thought to either represent an organizing hematoma with peripheral enhancement versus an underlying mass. There is definite evidence of some hemorrhage based on the signal characteristics. Follow-up would be recommended. 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 Given its large size and mass effect, and midline shift, I recommend consideration to a surgical resection for decompression. All discussed the wwqx-in-eulz details of the surgical procedure, its indications, alternatives, risks, and potential complications. Risks and potential complications include, but are not limited to, infection, blood loss, CSF leak, partial or complete loss of sight in one or both eyes, paresis, paralysis, permanent pain or difficulty swallowing, loss of bowel or bladder function, complications from anesthesia, blood clot, stroke, myocardial infarction, or even . The possibility of nonoperative treatment has been offered. Pulmonary: aggressive pulmonary toilette, nasotracheal suction, and breathing treatments with nebulizers. Daily PT and OT Renal: Continue to monitor closely urine output, BUN and creatinine Endocrine: Continue to Monitor serial Acu checks and SSI as needed in detail ID continue to monitor for signs of infection Continue Protonix for stress ulcer prophylaxis Continue Melvin hose and SCD's for DVT prophylaxis May 17, 2018 The patient is stable now postoperative day #3 status post craniotomy for resection of a brain metastasis. From a neurosurgical perspective he can be transferred to the floor. Mobilization is encouraged. Decadron should be weaned down his tolerated. I would continue the present management. Neurosurgery will follow.
[2018-05-18] MEDS: Sod Chloride 0.9% Inj 1,000 ML IV.CONT SCH ×2 (05:33→21:23)
--- NOTE | 2018-05-18 09:03 | P.PNCC ---
Subjective Brief History: 63-year-old male transferred from [facility] after request was made to the trauma service. Patient apparently fell about 4 times in last few days and he underwent CT scan of the hand over day or which revealed a bleed in the posterior fossa. In addition states that the patient has been getting more progressively senile in the last few months He has history of colon cancer with diverting colostomy but I do not know without a therapy was undertaken and patient does not know either Upon discussing this case with the physician at [facility] it was not quite clear if patient had a stroke and bled fell and bled or had some other lesion nonetheless I accepted the patient in transfer in order to sort these things out here. Upon patient's arrival I reviewed the available diagnostic studies including CT of the brain which reveals hemorrhage into the posterior fossa but not reaching the surface of the brain so is essentially in the substance of the brain and significant degree of swelling with lateral ventricular collapse on the right On arrival patient was awake alert and oriented slightly confused and his Serbian is somewhat limited Patient underwent MRI of the brain with contrast and at this point there is no question in my mind that this patient has met static lesion in his right occipital area of the brain without a known primary Colon cancer usually does not go into the brain rather goes to the liver and lungs but in this particular sick situation could be anything In addition patient was noted to have excoriation of the perineum and today when patient went to the bathroom urine came out of his anus which 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 Will follow with neurosurgical lead on this and see how patient does 05/14/2018 Neurologically patient is intact although somewhat confused at times Hemodynamically stable prior to surgery To OR today for removal and decompression of the right posterior cerebral mass Bilateral breath sounds I reviewed the CT scan of abdomen and pelvis with Dr. 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 Either way decompression at this point is necessary and we will see how we do postop based on the pathologic diagnosis Addendum Postoperatively patient is doing well he is awake alert and oriented neurologically fully intact LEYLA drain serosanguineous drainage Patient was restarted on a diet IV fluids and further care as per clinical indices 05/15/2018 Patient is status post a right posterior craniotomy and removal of metastatic lesion Patient is awake alert and oriented Neurologically appears to be intact just like prior to surgery Incision is clean and dry Bilateral good breath sounds Abdomen soft with active bowel sounds Diet has been advanced patient should remain on Keppra and steroids and can be transferred to floor tomorrow It should be noted the patient's CEA level is elevated and pathology is consistent with cystic metastatic lesion of from the adenocarcinoma of the colon Oncology consulted to evaluate the patient In addition 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 and 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 carcinoma down there At this point patient is not a candidate in any way for any reversible repair or anything like that 05/16/2018 Patient neurologically remains intact Awake alert and oriented occasionally confused Bilateral good breath sounds Hemodynamically remained stable Abdomen soft active bowel sounds tolerates diet normally Craniotomy incision is clean and dry Patient had urinary retention after removal of the Mccormick catheter considering that he has a rectovesical fistula and is passing urine per rectum if not drained through the urethra Patient should not have his Mccormick removed at this point considering the metastatic disease bedridden condition and rectovesical fistula Awaiting bed on the floor Patient can transfer to floor anytime 05/17/2018 Patient is awake alert and oriented LEYLA drains removed In face of rectovesical fistula Mccormick catheter should remain in place and when patient is discharged he is able to catheterize himself Transfer to floor but no floor beds were available yesterday Nothing to add to care at this time Oncology help is greatly appreciated 05/18/2018 Patient with brain metastasis from colorectal cancer, post resection of the same Remains neurologically stable Tolerating diet Hemodynamically stable Patient can transfer to floor any time but is been waiting for the last 2 days for the floor bed Oncology consulted Objective Vital Signs / I&O: Vital Signs 05/17/18 10:00 05/17/18 11:00 05/17/18 12:00 Temperature Pulse Rate 58 L 50 L 52 L Respiratory Rate 21 30 H 11 L Blood Pressure 108/55 L 124/56 L 96/49 L Pulse Oximetry 98 98 96 05/17/18 12:44 05/17/18 13:00 05/17/18 14:00 Temperature Pulse Rate 62 68 53 L Respiratory Rate 26 H 39 H 9 L Blood Pressure 106/53 L 106/52 L 109/55 L Pulse Oximetry 98 98 98 05/17/18 15:00 05/17/18 16:00 05/17/18 17:00 Temperature Pulse Rate 53 L 49 L 49 L Respiratory Rate 17 23 15 Blood Pressure 102/56 L 109/56 L 121/58 L Pulse Oximetry 98 98 98 05/17/18 18:00 05/17/18 19:00 05/17/18 20:00 Temperature 97.7 F Pulse Rate 47 L 52 L 51 L Respiratory Rate 13 16 15 Blood Pressure 117/56 L 124/59 L 110/54 L Pulse Oximetry 99 98 98 05/17/18 21:01 05/17/18 22:00 05/17/18 23:00 Temperature Pulse Rate 63 48 L 53 L Respiratory Rate 18 15 15 Blood Pressure 116/65 117/62 128/62 Pulse Oximetry 98 95 05/18/18 00:00 05/18/18 01:00 05/18/18 02:00 Temperature 97.7 F Pulse Rate 51 L 50 L 48 L Respiratory Rate 21 13 12 Blood Pressure 132/64 133/62 123/63 Pulse Oximetry 96 96 96 05/18/18 03:25 05/18/18 03:31 05/18/18 04:00 Temperature 97.7 F Pulse Rate 70 47 L Respiratory Rate 16 12 Blood Pressure 120/58 L 110/61 Pulse Oximetry 100 100 05/18/18 05:00 05/18/18 05:21 05/18/18 06:00 Temperature Pulse Rate 49 L 57 L 50 L Respiratory Rate 19 19 17 Blood Pressure 87/50 L 95/49 L 111/59 L Pulse Oximetry 97 100 99 Intake & Output 05/17/18 05/18/18 05/18/18 18:59 06:59 18:59 Intake Total 585 / 585 1505 / 1505 Output Total 1550 / 1550 1700 / 1700 Balance -965 / -965 -195 / -195 Weight 85.9 kg Intake: IV 105 / 105 1505 / 1505 NS Inj 1,000 ML @ 100 mls/hr IV 1400 / 1400 .CONT .Q10H [facility] Rx#:[id number] Keppra Inj 500 MG In NS Inj 100 105 / 105 105 / 105 ML @ 400 mls/hr IV.SIG Q12H [facility] Rx#:[id number] Oral 480 / 480 Output: Stool 250 / 250 Urine Amount (Catheter) 1300 / 1300 1200 / 1200 Indwelling Urethral Catheter 1300 / 1300 1200 / 1200 Stool Amount (Stoma) 500 / 500 Pre-Hospital: Right Lower 500 / 500 Abdomen Other: Date of Last Bowel Movement 05/16/18 05/16/18 Result Diagrams: 05/16/18 05:20 05/16/18 05:20 Disinhibition Score: 14.00 Aggression Score: 14.00 Lability Score: 14.00 Agitated Behavior Total Score: 14
[2018-05-18] MEDS: Senna/Docusate Sodium 8.6/50 MG Tablet PO SCH (09:31)
--- NOTE | 2018-05-18 10:43 | P.PNNS ---
Subjective Interval history: sitting up in chair, reports to be feeling well, surgical pain controlled. <Denise Colindres - Last Filed: 05/18/18 10:45> Physical Exam Vital signs: Vital Signs 05/17/18 11:00 05/17/18 12:00 05/17/18 12:44 Temperature Pulse Rate 50 L 52 L 62 Respiratory Rate 30 H 11 L 26 H Blood Pressure 124/56 L 96/49 L 106/53 L Pulse Oximetry 98 96 98 05/17/18 13:00 05/17/18 14:00 05/17/18 15:00 Temperature Pulse Rate 68 53 L 53 L Respiratory Rate 39 H 9 L 17 Blood Pressure 106/52 L 109/55 L 102/56 L Pulse Oximetry 98 98 98 05/17/18 16:00 05/17/18 17:00 05/17/18 18:00 Temperature Pulse Rate 49 L 49 L 47 L Respiratory Rate 23 15 13 Blood Pressure 109/56 L 121/58 L 117/56 L Pulse Oximetry 98 98 99 05/17/18 19:00 05/17/18 20:00 05/17/18 21:01 Temperature 97.7 F Pulse Rate 52 L 51 L 63 Respiratory Rate 16 15 18 Blood Pressure 124/59 L 110/54 L 116/65 Pulse Oximetry 98 98 05/17/18 22:00 05/17/18 23:00 05/18/18 00:00 Temperature 97.7 F Pulse Rate 48 L 53 L 51 L Respiratory Rate 15 15 21 Blood Pressure 117/62 128/62 132/64 Pulse Oximetry 98 95 96 05/18/18 01:00 05/18/18 02:00 05/18/18 03:25 Temperature Pulse Rate 50 L 48 L 70 Respiratory Rate 13 12 16 Blood Pressure 133/62 123/63 Pulse Oximetry 96 96 05/18/18 03:31 05/18/18 04:00 05/18/18 05:00 Temperature 97.7 F Pulse Rate 47 L 49 L Respiratory Rate 12 19 Blood Pressure 120/58 L 110/61 87/50 L Pulse Oximetry 100 100 97 05/18/18 05:21 05/18/18 06:00 Temperature Pulse Rate 57 L 50 L Respiratory Rate 19 17 Blood Pressure 95/49 L 111/59 L Pulse Oximetry 100 99 Intake & Output 05/17/18 05/18/18 05/18/18 18:59 06:59 18:59 Intake Total 585 / 585 1505 / 1505 Output Total 1550 / 1550 1700 / 1700 Balance -965 / -965 -195 / -195 Weight 85.9 kg Intake: IV 105 / 105 1505 / 1505 NS Inj 1,000 ML @ 100 mls/hr IV 1400 / 1400 .CONT .Q10H [facility] Rx#:[id number] Keppra Inj 500 MG In NS Inj 100 105 / 105 105 / 105 ML @ 400 mls/hr IV.SIG Q12H [facility] Rx#:[id number] Oral 480 / 480 Output: Stool 250 / 250 Urine Amount (Catheter) 1300 / 1300 1200 / 1200 Indwelling Urethral Catheter 1300 / 1300 1200 / 1200 Stool Amount (Stoma) 500 / 500 Pre-Hospital: Right Lower 500 / 500 Abdomen Other: Date of Last Bowel Movement 05/16/18 05/16/18 Narrative: awake, alert conversing appropriately Right occipital wound clean and dry, casa intact moves all four extremities well - Urinary Catheter Management Indwelling Urethral Catheter Cath placed during this visit: yes Reason for continuing: Other continuation reason Insertion date: 05/15/18 Insertion time: 22:15 <Denise Colindres - Last Filed: 05/18/18 10:45> Vital signs: Vital Signs 05/17/18 12:00 05/17/18 12:44 05/17/18 13:00 Temperature Pulse Rate 52 L 62 68 Respiratory Rate 11 L 26 H 39 H Blood Pressure 96/49 L 106/53 L 106/52 L Pulse Oximetry 96 98 98 05/17/18 14:00 05/17/18 15:00 05/17/18 16:00 Temperature Pulse Rate 53 L 53 L 49 L Respiratory Rate 9 L 17 23 Blood Pressure 109/55 L 102/56 L 109/56 L Pulse Oximetry 98 98 98 05/17/18 17:00 05/17/18 18:00 05/17/18 19:00 Temperature Pulse Rate 49 L 47 L 52 L Respiratory Rate 15 13 16 Blood Pressure 121/58 L 117/56 L 124/59 L Pulse Oximetry 98 99 98 05/17/18 20:00 05/17/18 21:01 05/17/18 22:00 Temperature 97.7 F Pulse Rate 51 L 63 48 L Respiratory Rate 15 18 15 Blood Pressure 110/54 L 116/65 117/62 Pulse Oximetry 98 98 05/17/18 23:00 05/18/18 00:00 05/18/18 01:00 Temperature 97.7 F Pulse Rate 53 L 51 L 50 L Respiratory Rate 15 21 13 Blood Pressure 128/62 132/64 133/62 Pulse Oximetry 95 96 96 05/18/18 02:00 05/18/18 03:25 05/18/18 03:31 Temperature Pulse Rate 48 L 70 Respiratory Rate 12 16 Blood Pressure 123/63 120/58 L Pulse Oximetry 96 100 05/18/18 04:00 05/18/18 05:00 05/18/18 05:21 Temperature 97.7 F Pulse Rate 47 L 49 L 57 L Respiratory Rate 12 19 19 Blood Pressure 110/61 87/50 L 95/49 L Pulse Oximetry 100 97 100 05/18/18 06:00 Temperature Pulse Rate 50 L Respiratory Rate 17 Blood Pressure 111/59 L Pulse Oximetry 99 Intake & Output 05/17/18 05/18/18 05/18/18 18:59 06:59 18:59 Intake Total 585 / 585 1505 / 1505 Output Total 1550 / 1550 1700 / 1700 Balance -965 / -965 -195 / -195 Weight 85.9 kg Intake: IV 105 / 105 1505 / 1505 NS Inj 1,000 ML @ 100 mls/hr IV 1400 / 1400 .CONT .Q10H [facility] Rx#:[id number] Keppra Inj 500 MG In NS Inj 100 105 / 105 105 / 105 ML @ 400 mls/hr IV.SIG Q12H [facility] Rx#:[id number] Oral 480 / 480 Output: Stool 250 / 250 Urine Amount (Catheter) 1300 / 1300 1200 / 1200 Indwelling Urethral Catheter 1300 / 1300 1200 / 1200 Stool Amount (Stoma) 500 / 500 Pre-Hospital: Right Lower 500 / 500 Abdomen Other: Date of Last Bowel Movement 05/16/18 05/16/18 - Urinary Catheter Management Indwelling Urethral Catheter Cath placed during this visit: no <Aj Fermin - Last Filed: 05/18/18 11:01> Assessment and Plan - Plan 63 YO M with PMH of rectal CA with a hemorrhagic mass. Head MRI 05/12/18 19:06 CONCLUSION: 5.5 cm rim-enhancing mass seen in the posterior right cerebral hemisphere in the parietal occipital region with surrounding mass effect. This is thought to either represent an organizing hematoma with peripheral enhancement versus an underlying mass. There is definite evidence of some hemorrhage based on the signal characteristics. Follow-up would be recommended. 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 Given its large size and mass effect, and midline shift, I recommend consideration to a surgical resection for decompression. Ihave discussed the [id number] details of the surgical procedure, its indications, alternatives, risks, and potential complications. Risks and potential complications include, but are not limited to, infection, blood loss, CSF leak, partial or complete loss of sight in one or both eyes, paresis, paralysis, permanent pain or difficulty swallowing, loss of bowel or bladder function, complications from anesthesia, blood clot, stroke, myocardial infarction, or even . The possibility of nonoperative treatment has been offered. Pulmonary: aggressive pulmonary toilette, nasotracheal suction, and breathing treatments with nebulizers. Daily PT and OT Renal: Continue to monitor closely urine output, BUN and creatinine Endocrine: Continue to Monitor serial Acu checks and SSI as needed in detail ID continue to monitor for signs of infection Continue Protonix for stress ulcer prophylaxis Continue Melvin hose and SCD's for DVT prophylaxis May 17, 2018 The patient is stable now postoperative day #3 status post craniotomy for resection of a brain metastasis. From a neurosurgical perspective he can be transferred to the floor. Mobilization is encouraged. Decadron should be weaned down his tolerated. I would continue the present management. Neurosurgery will follow. 05/18/18 neuro stable final patho reports adenocarcinoma cont decadron wean, decreased to 1 mg q6 hours, cont Protonix for gi prophylaxis cont keppra 500 bid, changed to po clear for dc from NRS standpoint, f/u 05/26/18 Dr. Fermin office for staple removal f/u oncology <Denise Colindres - Last Filed: 05/18/18 10:45> - Plan The exam, history, and the medical decision-making described in the above note were completed with the assistance of the mid-level provider. I reviewed and agree with the findings presented. I attest that I had a [id number] encounter with the patient on the same day, and personally performed and documented my assessment and findings in the medical record. <Aj Fermin - Last Filed: 05/18/18 11:01>
--- NOTE | 2018-05-18 14:46 | MH ---
cc: Moustapha Cavazos MD, Slobodan MD DATE OF ADMISSION: 05/12/2018 REQUESTING PHYSICIAN: Dr. Agus Terrazas. REASON FOR CONSULTATION: Evaluation of metastatic brain lesion. HISTORY OF PRESENT ILLNESS: The patient is a 63-year-old gentleman with a history of possible rectal cancer, treated with neoadjuvant chemoradiation, followed by surgery in 2016, according to him. He was evaluated in [facility] with frequent falls in the recent past, and was found to have an intracerebral hemorrhage. The patient was transferred here and neurosurgery operated on him to evacuate blood clot and scans were suspicious for metastatic lesion and, hence, oncology was consulted. There was no pathology available at this time. Currently, he is status post neurosurgery and is doing well. He had an image-guided parietooccipital craniotomy with microsurgical resection of metastatic adenocarcinoma, which was seen on frozen section, final pending. 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 Again, pathology is pending at this time. REVIEW OF SYSTEMS: No headaches, but recent onset of confusion and falls as mentioned. No motor or sensory symptoms. No cough, chest pain or shortness of breath. No abdominal pain, distension, blood in stool or black stools. Urine leakage from the anus as mentioned above. PAST MEDICAL HISTORY: As above. FAMILY HISTORY: Noncontributory. His prior oncologist was Dr. Figueroa in [place], according to him, and he wants to follow up with him. PHYSICAL EXAMINATION: GENERAL: On examination, middle-aged gentleman, appearing older, chronically ill looking, no acute distress. Status post craniotomy with casa in place. VITAL SIGNS: Stable. He is afebrile. HEENT: Status post craniotomy with casa in place. Pallor present. No icterus. Without oropharyngeal lesions. LYMPHATICS: No palpable adenopathy in the neck or axilla. NEUROLOGIC: Alert and oriented x3, nonfocal. NECK: No JVD. HEART: S1, S2. Regular rate and rhythm. LUNGS: Bilaterally clear without crackles or wheeze. ABDOMEN: Slightly distended, soft, and nontender with a colostomy functioning well with no evidence of bleeding. EXTREMITIES: No edema or evidence of DVTs. LABORATORY DATA: White count 8.8, hemoglobin 10.6, hematocrit 29.8, platelets 129. Chemistry significant for creatinine of 0.92. GFR of 83. CEA was 28.2 on 05/13/2018. RADIOLOGIC STUDIES: Neurosurgery operative report of 05/14/2018 reviewed. MRI of the head, 05/12/2018, and CT abdomen and pelvis, 05/13/2018 reviewed. IMPRESSION: A 63-year-old gentleman with a history of colorectal cancer, status post neoadjuvant chemoradiation and surgery 2 years ago, currently with a metastatic adenocarcinoma on frozen section in the brain. PLAN: Need final confirmation and further workup for origin of primary tumor, which could be in the chest in this gentleman with a heavy history of smoking. We will await his final pathology and follow him up in the hospital. The patient indicated that he wanted to follow up with his primary oncologist in [place], and if so, we will hand over case to him after discharge from the hospital, but currently will follow up in the hospital after final pathology is available, and consider obtaining a PET/CT scan for a possible primary in the lung unless other evidence of systemic disease is found, as brain metastasis are not to be expected from CRC. He should be ruled out for lung primary, given his history of smoking and elevated CEA of 23. In addition, he has a mild anemia and thrombocytopenia, which could be secondary to splenomegaly from his history of alcohol use. Will check his iron studies. All these issues were discussed with the patient and will be followed up in the hospital. MD JALEN Simmons/kavon , 01:54 PM , 02:06 PM DARREL
[2018-05-18 22:45] LABS: % Iron Saturation 29.7 % (20-50)
[2018-05-19] MEDS: levETIRAcetam 500 MG Tablet PO SCH ×3 (00:03→18:03)
[2018-05-19] MEDS: Senna/Docusate Sodium 8.6/50 MG Tablet PO SCH ×2 (00:04→11:22)
[2018-05-19] MEDS: Sod Chloride 0.9% Inj 1,000 ML IV.CONT SCH ×2 (08:42→18:00)
--- NOTE | 2018-05-19 09:53 | P.PNONC ---
Subjective Interval history: Patient ambulating in the room. He reports that he is ready to go home. We have discussed his pathology findings. He is aware that he needs to follow- up with his oncologist upon discharge from the hospital. Recommend he take a copy of the pathology report to his oncologist. He has no questions at this time. He states "I will call them as soon as I get home" Objective Vital Signs/Intake & Output: Vital Signs 05/18/18 10:00 05/18/18 10:27 05/18/18 11:20 Temperature Pulse Rate 67 55 L Respiratory Rate 35 H 17 Blood Pressure 109/56 L Pulse Oximetry 100 100 100 05/18/18 11:41 05/18/18 12:00 05/18/18 13:00 Temperature 98.2 F Pulse Rate 60 61 69 Respiratory Rate 24 22 28 H Blood Pressure 95/52 L 95/54 L 129/67 Pulse Oximetry 100 100 05/18/18 14:00 05/18/18 17:50 05/18/18 20:00 Temperature 98 F 98.0 F 97.9 F Pulse Rate 66 55 L 66 Respiratory Rate 26 H 16 16 Blood Pressure 113/55 L 112/71 103/60 Pulse Oximetry 100 99 96 05/19/18 00:00 05/19/18 04:00 Temperature 98.7 F 98.1 F Pulse Rate 63 62 Respiratory Rate 20 17 Blood Pressure 105/56 L 103/49 L Pulse Oximetry 96 98 Intake & Output 05/18/18 05/19/18 05/19/18 18:59 06:59 18:59 Intake Total 1240 / 1240 1105 / 1105 Output Total 2650 / 2650 700 / 700 Balance -1410 / -1410 405 / 405 Weight 84.7 kg Intake: IV 1105 / 1105 NS Inj 1,000 ML @ 100 mls/hr IV 1000 / 1000 .CONT .Q10H KRZYSZTOF Rx#:[id number] Keppra Inj 500 MG In NS Inj 100 105 / 105 ML @ 400 mls/hr IV.SIG Q12H KRZYSZTOF Rx#:[id number] Oral 1140 / 1140 Anesthesia Amount 100 / 100 Output: Urine 700 / 700 Stool 250 / 250 Estimated Blood Loss 100 / 100 Urine Amount (Catheter) 1800 / 1800 Indwelling Urethral Catheter 1800 / 1800 Stool Amount (Stoma) 500 / 500 Pre-Hospital: Right Lower 500 / 500 Abdomen Other: Date of Last Bowel Movement 05/16/18 Result Diagrams: 05/16/18 05:20 05/16/18 05:20 Laboratory Results: Laboratory Results - last 24 hr 05/16/18 05:20 Iron 59 L TIBC 199 L % Saturation 29.7 Ferritin 113 Medications: Active Medications Generic Name Dose Route Start Last Admin Trade Name Freq PRN Reason Stop Dose Admin Dexamethasone 1 mg 05/18/18 10:42 05/19/18 08:42 Decadron PO 1 mg Q6HR KRZYSZTOF Administration Sodium Chloride 1,000 mls @ 100 mls/hr 05/12/18 20:30 05/19/18 08:42 Ns Inj IV.CONT Not Given .Q10H KRZYSZTOF Levetiracetam 500 mg 05/18/18 21:00 05/19/18 00:03 Keppra PO 500 mg BID KRZYSZTOF Administration Morphine Sulfate 2 mg 05/14/18 10:15 05/14/18 20:29 Morphine Inj IV.PUSH 2 mg Q2H PRN Administration PAIN 1-6 Pantoprazole Sodium 40 mg 05/13/18 09:00 05/18/18 09:31 Protonix PO 40 mg DAILY KRZYSZTOF Administration Senna/Docusate Sodium 1 tab 05/14/18 21:00 05/19/18 00:04 Janis-Colace PO 1 tab BID KRZYSZTOF Administration Objective Remarks: GENERAL: Well-nourished, well-developed male patient, in no acute distress. SKIN: Warm and dry. HEAD: Normocephalic. EYES: No scleral icterus. No injection or drainage. NECK: Supple, trachea midline. CARDIOVASCULAR: Regular rate and rhythm without murmurs. RESPIRATORY: Breath sounds equal bilaterally. No accessory muscle use. GASTROINTESTINAL: Abdomen soft, non-tender, nondistended. EXTREMITIES: No cyanosis, or edema. MUSCULOSKELETAL: Adequate muscle tone. NEUROLOGICAL: No obvious focal deficit. Awake, alert, and oriented x3. PSYCHIATRIC: Appropriate mood and affect; insight and judgment normal. Assessment/Plan - Plan Mr. Flores is a pleasant 63-year-old gentleman with a history of rectosigmoid cancer, treated with neoadjuvant chemoradiation, followed by surgery in 2016. His oncologist is in [facility]. He reports recent follow-up with them. He was hospitalized with frequent falls and found to have an intracerebral hemorrhage. The patient was transferred here for neurosurgery. He had an image guided parieto-occipital craniotomy with microsurgical resection of metastatic adenocarcinoma. Plan: 1. Metastatic adenocarcinoma similar to previous rectosigmoid cancer. The patient follows with an oncologist in [facility]. Discussed pathology findings with the patient. He is aware that he needs to follow-up with his oncologist upon discharge. He states he will call as soon as he gets home. 2. Anemia and thrombocytopenia, could be secondary to splenomegaly with history of alcohol use. This could also be followed with his oncologist. 3. Patient is eager to discharge home. From an oncology standpoint, the patient may be discharged once cleared by other treating physicians. Recommend he follow-up with his oncologist. - Attending Statement Pt seen, recovering well, wants to go home. PE unchanged. Reviewed labs. Anemia and thrombocytopenia consistent with alcohol and cirrhosis. If discharged home, may follow up with primary oncologist with PET scan. D/w pt.
[2018-05-19 12:54] VITALS: BP 107/68; PULSE 54; RESP 18; TEMP 97.8; O2SAT 100
== END 2018-05-19 18:57 | disposition home or self-care (01) ==
LOC: NEPE 18:37 → NEDA 19:50 → N03 21:44 → N05 05-18 17:27
PROVIDERS: ADMIT Surgery; ATTEND Surgery

== ENCOUNTER 2018-07-10 18:43 | Inpatient (IN) ==
[2018-07-10] MEDS ORDERED: levETIRAcetam 500 MG Tablet PO ONE ×2 (19:35→20:38)
--- NOTE | 2018-07-10 19:52 | ED ---
HPI General Chief complaint: Fall Stated complaint: headache, L side pain Time Seen by Provider: 07/10/18 19:28 Source: patient, family, RN notes reviewed and old records reviewed Mode of arrival: ambulatory History of Present Illness HPI narrative: 63yM presenting with left upper and lower extremity weakness and multiple falls. The patient has a history of colon CA s/p colostomy (distant past) who presented in 04/2018 with similar symptoms, found to have a brain metastatic adenocarcinoma with surrounding hematoma, edema, and midline shift. He underwent surgical resection with Dr. Fermin on 05/14/2018 and was discharged on 05/19/18 with instructions to take keppra BID and follow up with Dr. Fermin as an outpatient. The patient's daughter states that the patient had no symptoms at discharge but stopped taking his keppra about a month ago as he doesn't have insurance and was unable to afford his medications. She says that she received a call from her mother today that the patient was having left upper / lower extremity weakness, multiple falls, and forgetfulness. The patient says that he thinks these symptoms have been ongoing for about a week. He admits to falling onto his left knee last night and reports "aching" left knee pain which is constant, non-radiating, and worse with movement; he denies hitting his head or losing consciousness. He reports feeling weak in his LUE/LLE but denies numbness or tingling. Denies neck or back pain, chest or abdominal pain. Related Data Previous Rx's Medication Instructions Recorded levetiracetam [Keppra] 500 mg PO BID #30 tab 05/19/18 Allergies Allergy/AdvReac Type Severity Reaction Status Date / Time No Known Allergies Allergy Verified 05/12/18 19:29 Review of Systems ROS: all other systems reviewed are negative Constitutional Denies fever(s) Eyes Denies blurry vision ENT Denies nasal congestion Cardiovascular Denies chest pain Respiratory Denies cough Gastrointestinal Denies nausea Genitourinary Denies dysuria Musculoskeletal Denies back pain Comments: (+) left knee pain Neurologic Reports frequent falls and Reports memory loss [facility] Medical History Medical History Colon cancer (Acute) Colostomy in place (Acute) HTN (hypertension) (Acute) Social History Social History Substance History: No History of Abuse Second Hand Smoke Exposure: Yes Smoking Status: Former smoker Tobacco Type: Cigarettes How Often Do You Have a Drink Containing Alcohol: Never Recent Travel in [facility] within the Last 8 Weeks: No Recent Out of Country Travel within the Last 8 Weeks: No Immunization History Tetanus Immunization: Unsure Exam Const General: healthy appearing and no acute distress HENMT Head: normocephalic and atraumatic Face and sinus: normal facial exam Eyes General: appearance normal, both eyes and all related structures Pupils: PERRL Neck Other: No midline cervical spinal tenderness Resp Effort & Inspection: normal respiratory effort Auscultation: no rhonchi and no wheezes Cardio Rate: regular rate Rhythm: regular rhythm GI Inspection: non-distended Palpation: soft and nontender Other: Ostomy present Skin General: no rashes or lesions noted Neuro Other: Awake, alert, oriented x 3 Answers questions appropriately, no slurred speech or aphasia Motor strength 5/5 in RUE/ RLE, 4+/5 in LUE/ LLE, sensation intact to all extremities, no drift after 5 seconds Pupils 3 mm and reactive bilaterally Extrem Other: Mild tenderness to left anterior knee, normal ROM, no joint effusion, negative anterior/ posterior drawer tests, no crepitus Course Consultations Consultation #1: Patient found to have new recurrent ICH in area of previous resection bed with surrounding edema and 12 mm midline shift. I spoke with Dr. Victoria (energy professional neurosurgeon), who requests that I call Dr. Fermin as the patient was operated on by him. Time: 20:44 Consultation #2: Case discussed with Dr. Fermin, who requests to add decadron 4 mg q6h and AM MRI brain. He will consult in AM. Time: 20:54 Initial Documented Vital Signs Temperature 97.3 F L 07/10/18 18:50 Pulse Rate 67 07/10/18 18:50 Respiratory Rate 18 07/10/18 18:50 Blood Pressure 140/74 07/10/18 18:50 Pulse Oximetry 98 07/10/18 18:50 Last Documented Vital Signs Temperature 97.3 F L 07/10/18 18:50 Pulse Rate 60 07/10/18 19:13 Respiratory Rate 20 07/10/18 19:13 Blood Pressure 149/71 H 07/10/18 19:13 Pulse Oximetry 99 07/10/18 19:13 Critical Care Time Critical Care Time: Yes Total Critical Care Time: 42 Attestation: Counseling/ Coordination of Care: This patient is critically ill with impairment of one or more vital organ systems with a high probability of imminent or life-threatening deterioration. High-complexity medical decision making was required to support vital organ function and/ or prevent deterioration of the patient's condition. Total critical care time spent is 42 minutes giving full attention to this patient. This includes examining and stabilizing the patient, gathering a history from a source other than the patient (i.e., chart review), formulating a differential diagnosis, ordering and interpreting laboratory tests and EKG, ordering and interpreting radiology tests, discussing the patient's care with other providers (neurosurgeon, math coach), re-evaluation at frequent intervals , and documentation. Amount of time is separate from teaching, counseling the patient and/or family, and exclusive of procedures. Medical Decision Making MDM Narrative Medical decision making narrative: Assessment: 63yM presenting with left upper/ lower extremity weakness and multiple falls Plan: Labs CTH and C spine X-ray left knee Will give a dose of Keppra here as patient has not been on this med x approximately 1 month (prescribed for seizure prophylaxis following surgery) Addendum: Patient found to have recurrent ICH in area of previous resection with worsening midline shift. I spoke with Dr. Wilcox ([facility]), who will admit. I informed the patient and his daughter of the results of all labs and imaging as well as plan to keep him in the hospital; they understand and agree. Medical Screen Exam Complete: Yes Emergency Medical Condition: Yes Differential Diagnosis Differential Diagnosis: Differential diagnosis includes, but is not limited to: ICH, recurrent mass, seizure/ Albin's paralysis, dehydration, trauma Medical Records Medical records reviewed: Yes I reviewed the patient's medical records. Lab Data Lab results reviewed: Yes I reviewed the patient's lab results. Result diagrams: 07/10/18 19:40 07/10/18 19:40 Lab Results 07/10/18 07/10/18 07/10/18 Range/Units 19:40 19:40 19:40 WBC 7.4 (4.0-11.0) th/mm3 RBC 4.19 L (4.50-5.90) mil/mm3 Hgb 12.8 L (13.0-17.0) gm/dL Hct 37.2 L (39.0-51.0) % MCV 88.7 (80.0-100.0) fL MCH 30.6 (27.0-34.0) pg MCHC 34.5 (32.0-36.0) % RDW 14.1 (11.6-17.2) % Plt Count 196 (150-450) th/mm3 MPV 7.6 (7.0-11.0) fL Neut % (Auto) 84.8 H (16.0-70.0) % Lymph % (Auto) 6.5 L (9.0-44.0) % [place] % (Auto) 7.5 (0.0-8.0) % Eos % (Auto) 0.8 (0.0-4.0) % Baso % (Auto) 0.4 (0.0-2.0) % Neut # (Auto) 6.3 (1.8-7.7) th/mm3 Lymph # (Auto) 0.5 L (1.0-4.8) th/mm3 [place] # (Auto) 0.6 (0.0-0.9) th/mm3 Eos # (Auto) 0.1 (0.0-0.4) th/mm3 Baso # (Auto) 0.0 (0.0-0.2) th/mm3 WBC Differential . Differential Comment Auto diff final PT 10.7 (9.8-11.6) sec INR 1.1 Ratio Sodium 140 (136-145) meq/L Potassium 4.3 (3.5-5.1) meq/L Chloride 109 H (98-107) meq/L Carbon Dioxide 27.0 (21.0-32.0) meq/L Anion Gap 4 L (5-15) meq/L BUN 15 (7-18) mg/dL Creatinine 1.05 (0.60-1.30) mg/dL Estimated GFR 71 L (>89) mL/min Random Glucose 106 (74-106) mg/dL Calcium 9.0 (8.5-10.1) mg/dL Magnesium 2.2 (1.5-2.5) mg/dL Total Bilirubin 0.4 (0.2-1.0) mg/dL AST 29 (15-37) U/L ALT 22 (12-78) U/L Alkaline Phosphatase 102 (45-117) U/L Total Protein 7.6 (6.4-8.2) g/dL Albumin 3.2 L (3.4-5.0) g/dL Blood Type Antibody Screen 07/10/18 Range/Units 19:40 WBC (4.0-11.0) th/mm3 RBC (4.50-5.90) mil/mm3 Hgb (13.0-17.0) gm/dL Hct (39.0-51.0) % MCV (80.0-100.0) fL MCH (27.0-34.0) pg MCHC (32.0-36.0) % RDW (11.6-17.2) % Plt Count (150-450) th/mm3 MPV (7.0-11.0) fL Neut % (Auto) (16.0-70.0) % Lymph % (Auto) (9.0-44.0) % [place] % (Auto) (0.0-8.0) % Eos % (Auto) (0.0-4.0) % Baso % (Auto) (0.0-2.0) % Neut # (Auto) (1.8-7.7) th/mm3 Lymph # (Auto) (1.0-4.8) th/mm3 [place] # (Auto) (0.0-0.9) th/mm3 Eos # (Auto) (0.0-0.4) th/mm3 Baso # (Auto) (0.0-0.2) th/mm3 WBC Differential Differential Comment PT (9.8-11.6) sec INR Ratio Sodium (136-145) meq/L Potassium (3.5-5.1) meq/L Chloride (98-107) meq/L Carbon Dioxide (21.0-32.0) meq/L Anion Gap (5-15) meq/L BUN (7-18) mg/dL Creatinine (0.60-1.30) mg/dL Estimated GFR (>89) mL/min Random Glucose (74-106) mg/dL Calcium (8.5-10.1) mg/dL Magnesium (1.5-2.5) mg/dL Total Bilirubin (0.2-1.0) mg/dL AST (15-37) U/L ALT (12-78) U/L Alkaline Phosphatase (45-117) U/L Total Protein (6.4-8.2) g/dL Albumin (3.4-5.0) g/dL Blood Type A Positive Antibody Screen Negative Imaging Data Radiologist's impression: Cervical Spine CT 07/10/18 19:35 CONCLUSION: 1. Moderate degenerative change. No acute findings. Chest X-Ray 07/10/18 19:35 CONCLUSION: Right Slpgoo-m-[id number] in superior vena cava. Abnormal perihilar density, possibly adenopathy or perihilar infiltrate with a possible nodule at the right lung base. Findings would be better evaluated with chest CT. Head CT 07/10/18 19:35 CONCLUSION: 1. New hemorrhage, edema and worsening mass effect in the right hemisphere with midline shift increasing from 8 mm to 12 mm since April 2018. . . Knee X-Ray 07/10/18 19:35 CONCLUSION: No acute findings. Mild osteoarthritis of the left knee. ECG Data Attestation: I personally reviewed and interpreted this ECG as follows: Interpretation: Rate: 58 BPM Rhythm: Sinus [place]: Normal Intervals: Normal intervals, no blocks, QTc 400 ms Q waves: None T waves: Upright, no inversions ST segments: No elevations or depressions Impression: Non-specific EKG, no changes as compared to EKG from 05/12/2018. Discharge Plan Discharge Disposition Patient Disposition: ED Admit(ED Internal Use Only) Discharge Condition Condition: Stable Discharge Order Discharge Orders: ED Use Only Admit Order (Routine); Ordered 07/10/18 Ordered By: Ciera Baumann Discharge Details Diagnosis: Intracranial hemorrhage Physicians Team ED Provider: Ciera Baumann Primary Care Provider: Elver Plummer Other Providers: Aj Fermin Rxs /Orders / Referrals /Forms Prescriptions: No Action levetiracetam [Keppra] 500 mg Tablet 500 mg PO BID Qty: 30 RF: 0 Discharge Interventions Interventions: Vital Signs Last Done: 07/10/18 19:13 Status ED Status: Pending Admission
[2018-07-10 20:13] LABS: Baso % (Auto) 0.4 % (0.0-2.0); Eos # (Auto) 0.1 th/mm3 (0.0-0.4); Eos % (Auto) 0.8 % (0.0-4.0); Hematocrit 37.2 % (39.0-51.0); Hemoglobin 12.8 gm/dL (13.0-17.0); Lymph # (Auto) 0.5 th/mm3 (1.0-4.8); Lymph % (Auto) 6.5 % (9.0-44.0); Mean Corpuscular HGB Conc 34.5 % (32.0-36.0); Mean Corpuscular Hemoglobin 30.6 pg (27.0-34.0); Mean Corpuscular Volume 88.7 fL (80.0-100.0); Mean Platelet Volume 7.6 fL (7.0-11.0); Mono # (Auto) 0.6 th/mm3 (0.0-0.9); Mono % (Auto) 7.5 % (0.0-8.0); Neut # (Auto) 6.3 th/mm3 (1.8-7.7); Neut % (Auto) 84.8 % (16.0-70.0); Platelet Count 196 th/mm3 (150-450); Red Blood Count 4.19 mil/mm3 (4.50-5.90); Red Cell Distribution Width 14.1 % (11.6-17.2); White Blood Count 7.4 th/mm3 (4.0-11.0)
[2018-07-10 20:29] LABS: Alanine Aminotransferase 22 U/L (12-78); Albumin 3.2 g/dL (3.4-5.0); Anion Gap 4 meq/L (5-15); Aspartate Aminotransferase 29 U/L (15-37); Blood Urea Nitrogen 15 mg/dL (7-18); Chloride 109 meq/L (98-107); Glomerular Filtration Rate 71 mL/min (>89); Glucose,Random 106 mg/dL (74-106); Magnesium 2.2 mg/dL (1.5-2.5); Potassium 4.3 meq/L (3.5-5.1); Sodium 140 meq/L (136-145)
[2018-07-10 20:32] LABS: Alkaline Phosphatase 102 U/L (45-117); Total Protein 7.6 g/dL (6.4-8.2)
[2018-07-10 20:33] LABS: INR 1.1 Ratio; Prothrombin Time 10.7 sec (9.8-11.6)
--- NOTE | 2018-07-10 20:36 | XR ---
EXAM DATE: 07/10/2018 8:22 PM EST AGE/SEX: 63 years / Male INDICATIONS: Shortness of breath, frequent falls. CLINICAL DATA: This is the patient's initial encounter. Patient reports that signs and symptoms have been present for 1 day and indicates a pain score of 0/10. MEDICAL/SURGICAL HISTORY: Hypertension. Carcinoma, colon. None. COMPARISON: [facility] [place], CHEST 1V SINGLE AP, 05/14/2018. . FINDINGS: Right Qqdvaa-[id number] in superior vena cava. There is some perihilar airspace disease or adenopathy. No effusion. No pneumothorax. Possible nodule right lung base. CONCLUSION: Right Vjqeob-g-Smsh in superior vena cava. Abnormal perihilar density, possibly adenopathy or perihil ar infiltrate with a possible nodule at the right lung base. Findings would be better evaluated with chest CT. Electronically signed by: Eran Leavitt MD Board Certified Radiologist 07/10/2018 8:34 PM EST
--- NOTE | 2018-07-10 20:37 | XR ---
EXAM DATE: 07/10/2018 8:24 PM EST AGE/SEX: 63 years / Male INDICATIONS: Left knee pain from multiple falls. CLINICAL DATA: This is the patient's initial encounter. Patient reports that signs and symptoms have been present for 1 day and indicates a pain score of 7/10. MEDICAL/SURGICAL HISTORY: Carcinoma, colon. Hypertension. None. COMPARISON: No prior exams available for comparison. FINDINGS: Bony structures are intact and in normal alignment. Joints are intact without dislocation or signifi cant arthropathy. Osseous density is normal. Soft tissues are unremarkable. No radiopaque foreign bodies seen. CONCLUSION: No acute findings. Mild osteoarthritis of the left knee. Electronically signed by: Eran Leavitt MD Board Certified Radiologist 07/10/2018 8:36 PM EST
--- NOTE | 2018-07-10 20:39 | CT ---
EXAM DATE: 07/10/2018 8:28 PM EST AGE/SEX: 63 years / Male INDICATIONS: Trauma, multiple falls. CLINICAL DATA: This is the patient's initial encounter. Patient reports that signs and symptoms have been present for 1 day and indicates a pain score of 7/10. MEDICAL/SURGICAL HISTORY: Carcinoma, colon. Hypertension. Colostomy. RADIATION DOSE: 22.18 CTDI (mGy) COMPARISON: No prior exams available for comparison. TECHNIQUE: Contiguous axial images were obtained using helical multirow detector technique. The vol umetric data was post-processed with multiplanar reconstruction in oblique axial, sagittal, and coron al planes. Using automated exposure control and adjustment of the mA and/or kV according to patient s ize, radiation dose was kept as low as reasonably achievable to obtain optimal diagnostic quality sondra ges. DICOM format image data is available electronically for review and comparison. FINDINGS: No acute fracture or spondylolisthesis. No prevertebral soft tissue swelling. No significant bony can al stenosis. Moderate degenerative disc disease and facet arthropathy. CONCLUSION: 1. Moderate degenerative change. No acute findings. Electronically signed by: Eran Leavitt MD Board Certified Radiologist 07/10/2018 8:37 PM EST
--- NOTE | 2018-07-10 20:42 | CT ---
EXAM DATE: 07/10/2018 8:28 PM EST AGE/SEX: 63 years / Male INDICATIONS: Trauma, multiple falls. CLINICAL DATA: This is the patient's initial encounter. Patient reports that signs and symptoms have been present for 1 day and indicates a pain score of 7/10. MEDICAL/SURGICAL HISTORY: Carcinoma, colon. Hypertension. Colostomy. Craniotomy. RADIATION DOSE: 40.49 CTDI (mGy) COMPARISON: [facility] [place] HEAD W/O CONTRAST, 05/15/2018. . TECHNIQUE: CT of the head without contrast. Using automated exposure control and adjustment of the mA and/or kV according to patient size, radiation dose was kept as low as reasonably achievable to ob tain optimal diagnostic quality images. DICOM format image data is available electronically for revi ew and comparison. FINDINGS: Comparison is May 15. There is no hemorrhage in the posterior right hemisphere measuring up to 5 .7 x 2.2 cm medially and about 2.7 x 1.2 cm laterally. There is extensive surrounding edema and new m ass effect with midline shift increasing from 8 mm to 12 mm). There is previous right-sided posterior craniotomy. There is mild dilatation of the right lateral ventricle. CONCLUSION: 1. New hemorrhage, edema and worsening mass effect in the right hemisphere with midline shift increa sing from 8 mm to 12 mm since April 2018. . . Electronically signed by: Eran Leavitt MD Board Certified Radiologist 07/10/2018 8:41 PM EST
[2018-07-11] MEDS ORDERED: Bisacodyl 10 MG Supp RECTAL PRN (00:07)
[2018-07-11] MEDS ORDERED: Acetaminophen 325 MG Tablet PO PRN (00:07)
--- NOTE | 2018-07-11 00:07 | P.HPCC ---
History of Present Illness Service: Critical care medicine Primary Care Physician: Elver Plummer Chief Complaint: Fall, left-sided weakness History of Present Illness: History obtained from patient, review of EMR, discussion with his stepdaughter who is at bedside in the emergency department. 63-year-old male with past medical history of colorectal cancer s/p rectosigmoidectomy with diverting ileostomy 11/06/[address] Roth and chemotherapy that was reportedly completed in February and March 2018 (per his stepdaughter). He was diagnosed with right parietal-occipital mass with hemorrhage in April 2018 for which he underwent microsurgical resection by Dr. Fermin 05/14/18 (pathology showed adenocarcinoma consistent with prior colorectal cancer). He had L hemiparesis at the time of diagnosis but he states that had resolved postoperatively. He now states that left hemiparesis has returned the evening of 07/09/18. He fell that evening. Reportedly there was no head trauma. He has had persistent left hemiparesis and therefore came to the emergency department. He does complain of a moderate throbbing headache. No nausea, vomiting, photophobia, visual change. No seizure activity. CT obtained in the emergency department demonstrates hemorrhage in the posterior right hemisphere with surrounding edema and 1.2 cm right to left midline shift with compression of right ventricle. Dr. Fermin has been informed and has requested MRI, Decadron, and Keppra. Patient states he has not been on Decadron or any other medications at home because he has had difficulty with following up after hospital discharge due to lack of insurance. His oncologist is Dr. Vasquez. Patient is not on anticoagulant or antiplatelet therapy. - Diagnosis (1) Intracranial hemorrhage (2) Colostomy in place (3) Metastatic adenocarcinoma to colorectal region (4) Hx of craniotomy Inpatient Certification: I certify that the inpatient services were ordered in accordance with Medicare regulations governing the order. This includes certification that hospital inpatient services are reasonable and necessary and in the case of services not specified as inpatient-only under 42 CFR 419.22(n), that they are appropriately provided as inpatient services in accordance to with the 2-midnight benchmark under 43 CFR 412.3(e) Review of Systems All other systems reviewed negative except as stated in HPI [facility] - History History Provided By: Patient, Family Member, Medical Record - Medical History Medical History: Medical History (Last Updated 07/11/18 @ 04:43 by Glroia Wilcox MD) Ileostomy present Infection of wound of perineum Port-A-Cath in place Colon cancer HTN (hypertension) - Surgical History Surgical History: Surgical History (Last Updated 07/11/18 @ 04:44 by Gloria Wilcox MD) History of colon resection History of craniotomy - Family History Family History: Family History (Last Updated 07/11/18 @ 04:45 by Gloria Wilcox MD) Sister Breast cancer - Social History I have reviewed the patient's Social History: Yes - Tobacco History Second Hand Smoke Exposure: Yes Tobacco Use In Past 30 Days: Yes Smoking Status: Former smoker Tobacco Type: Cigarettes Smoking End Date: 2 weeks ago - Alcohol History How Often Do You Have a Drink Containing Alcohol: Never - Substance Use History Substance History: No History of Abuse - Travel History Recent Travel in the [facility] Within the Last 8 Weeks: No Recent Travel Out of the Country Within the Last 8 Weeks: No - Immunization History Tetanus Immunization: Unsure Medications and Allergies Active Medications: Active Medications Dexamethasone Sodium Phosphate (Decadron Inj) 4 mg IV.PUSH Q6HR KRZYSZTOF Levetiracetam 500 mg/ Sodium (Chloride) 105 mls @ 400 mls/hr IV.SIG Q12H KRZYSZTOF Allergies Allergy/AdvReac Type Severity Reaction Status Date / Time No Known Allergies Allergy Verified 05/12/18 19:29 Results - Labs CBC & Chem 7: 07/10/18 19:40 07/10/18 19:40 Labs: Short CBC 07/10/18 Range/Units 19:40 WBC 7.4 (4.0-11.0) th/mm3 Hgb 12.8 L (13.0-17.0) gm/dL Hct 37.2 L (39.0-51.0) % Plt Count 196 (150-450) th/mm3 BMP 07/10/18 19:40 Sodium 140 Potassium 4.3 Chloride 109 H Carbon Dioxide 27.0 BUN 15 Creatinine 1.05 Calcium 9.0 Liver Function 07/10/18 Range/Units 19:40 Total Bilirubin 0.4 (0.2-1.0) mg/dL AST 29 (15-37) U/L ALT 22 (12-78) U/L Alkaline Phosphatase 102 (45-117) U/L Albumin 3.2 L (3.4-5.0) g/dL - Imaging Impressions Cervical Spine CT 07/10/18 19:35 CONCLUSION: 1. Moderate degenerative change. No acute findings. Chest X-Ray 07/10/18 19:35 CONCLUSION: Right [id number] in superior vena cava. Abnormal perihilar density, possibly adenopathy or perihilar infiltrate with a possible nodule at the right lung base. Findings would be better evaluated with chest CT. Head CT 07/10/18 19:35 CONCLUSION: 1. New hemorrhage, edema and worsening mass effect in the right hemisphere with midline shift increasing from 8 mm to 12 mm since April 2018. . . Knee X-Ray 07/10/18 19:35 CONCLUSION: No acute findings. Mild osteoarthritis of the left knee. Exam Vital signs: Vital Signs 07/10/18 18:50 07/10/18 19:13 07/10/18 21:00 Temperature 97.3 F L Pulse Rate 67 60 60 Respiratory Rate 18 20 20 Blood Pressure 140/74 149/71 H Pulse Oximetry 98 99 100 07/10/18 23:00 Temperature Pulse Rate 58 L Respiratory Rate 20 Blood Pressure 148/70 H Pulse Oximetry 100 Intake & Output 07/10/18 07/10/18 07/11/18 06:59 18:59 06:59 Weight 81.647 kg Narrative: GENERAL: Well-nourished, well-developed patient who is laying in ED bed in right lateral decubitus. SKIN: Warm and dry. HEAD: Atraumatic. Normocephalic. EYES: Pupils equal and round, 2mm reactive. No scleral icterus. No injection or drainage. ENT: No nasal bleeding or discharge. Mucous membranes pink and moist. NECK: Trachea midline. No JVD. CARDIOVASCULAR: Regular rate and rhythm. No murmurs rubs or gallops. RESPIRATORY: Breathing comfortably on room air. Clear to auscultation bilaterally. GASTROINTESTINAL: Abdomen soft, non-tender, nondistended. Status post ileostomy. Ileostomy bag is has not adhered appropriately. I have notified [facility]SC nurse and will replace ostomy bag upon arrival. MUSCULOSKELETAL: Extremities without clubbing, cyanosis, or edema. No obvious deformities. NEUROLOGICAL: Awake and alert, oriented to [place], self, year. Extraocular movements are full. No cranial nerve deficit. Normal speech. + Left pronator drift.4-/5 L deltoid, 4+/5 L triceps, 4-/5 L biceps. Doesn't cooperate with testing intrinsics. 4+/5 L hip flexor, 4+/5 L plantar/dorsiflexion. 5/5 throughout right upper and right lower extremity (though does not cooperate with testing intrinsics) . Reports intact and symmetrical sensation to soft touch. Caprini VTE Risk Assessment Caprini VTE Risk Assessment: Moderate/High Risk (score >= 2) VTE Pharmacological Exception Reason: Hemorrhage, Intracranial lesions Caprini Risk Assessment Model: Point Value = 1 Point Value = 2 Point Value = 3 Point Value = 5 Age 41-60 Minor surgery BMI > 25 kg/m2 Swollen legs Varicose veins or History of unexplained or recurrent spontaneous Oral contraceptives or hormone replacement Sepsis (< 1 month) Serious lung disease, including pneumonia (< 1 month) Abnormal pulmonary function Acute myocardial infarction Congestive heart failure (< 1 month) History of inflammatory bowel disease Medical patient at bed rest Age 61-74 Arthroscopic surgery Major open surgery (> 45 min) Laparoscopic surgery (> 45 min) Malignancy Confined to bed (> 72 hours) Immobilizing plaster cast Central venous access Age >= 75 History of VTE Family history of VTE Factor V Leiden Prothrombin [id number] Lupus anticoagulant Anticardiolipin antibodies Elevated serum homocysteine Heparin-induced thrombocytopenia Other congenital or acquired thrombophilia Stroke (< 1 month) Elective arthroplasty Hip, pelvis, or leg fracture Acute spinal cord injury (< 1 month) Prophylaxis Regimen: Total Risk Factor Score Risk Level Prophylaxis Regimen 0-1 Low Early ambulation 2 Moderate Order ONE of the following: *Sequential Compression Device (SCD) *Heparin 5000 units SQ BID 3-4 Higher Order ONE of the following medications: *Heparin 5000 units SQ TID *Enoxaparin/Lovenox 40 mg SQ daily (WT < 150 kg, CrCl > 30 mL/min) *Enoxaparin/Lovenox 30 mg SQ daily (WT < 150 kg, CrCl > 10-29 mL/min) *Enoxaparin/Lovenox 30 mg SQ BID (WT < 150 kg, CrCl > 30 mL/min) AND/OR *Sequential Compression Device (SCD) 5 or more Highest Order ONE of the following medications: *Heparin 5000 units SQ TID (Preferred with Epidurals) *Enoxaparin/Lovenox 40 mg SQ daily (WT < 150 kg, CrCl > 30 mL/min) *Enoxaparin/Lovenox 30 mg SQ daily (WT < 150 kg, CrCl > 10-29 mL/min) *Enoxaparin/Lovenox 30 mg SQ BID (WT < 150 kg, CrCl > 30 mL/min) AND *Sequential Compression Device (SCD) Assessment and Plan - Problem List (1) Intracranial hemorrhage Code(s): I62.9 - Nontraumatic intracranial hemorrhage, unspecified Status: Acute (2) Colostomy in place Code(s): Z93.3 - Colostomy status Status: Acute (3) Metastatic adenocarcinoma to colorectal region Code(s): C78.5 - Secondary malignant neoplasm of large intestine and rectum Status: Chronic (4) Hx of craniotomy Code(s): Z98.890 - Other specified postprocedural states Status: Acute - Assessment and Plan Plan: NEURO: Right parieto-occipital hemorrhage with probable recurrence of metastatic adenocarcinoma of the brain. 1.2 cm midline shift. History of craniotomy with microsurgical resection of tumor 05/14/18 Dr. Fermin Decadron 4 mg IV every 6 hours. Mannitol 25 g IV every 8 hours. Monitor serum Osm. Obtain MRI with and without contrast. Keppra 500 mg IV q12 hours. Neurosurgery consult, Dr. Fermin. RESP: History of tobacco abuse RA Incentive spirometry every hour awake CV: Monitor blood pressure Will use labetalol/hydralazine as needed. Does not appear to require continuous hemodynamic monitoring at this time but will place art line if he is requiring antihypertensive management 0.9 NaCl at 70 mL/h GI: N.p.o. after midnight Bowel regimen FEN/RENAL: Voiding Monitor electrolytes and replace as indicated per ICU electrolyte replacement protocol. ID: Monitor for signs and symptoms of infection HEME: History of adenocarcinoma colon s/p rectosigmoidectomy and diverting ileostomy (Dr. Roth) Platelet count and coags are within normal limits ENDO: Monitor bedside glucose AC/at bedtime while on steroids and administer low-dose insulin sliding scale as indicated. PROPH: SCDs for DVT prophylaxis. Pharmacology DVT prophylaxis is contraindicated due to intracerebral hemorrhage. Famotidine for stress ulcer prophylaxis ACCESS: Port in place right chest Patient states that he is full code. Level 3 H&P
[2018-07-11] MEDS: Morphine Sulfate Inj 2 MG/ML Vial IV.PUSH PRN ×3 (00:32→16:56)
[2018-07-11] MEDS ORDERED: Labetalol HCl Inj 100 MG/20 ML Vial IV.PUSH PRN (01:57)
[2018-07-11] MEDS ORDERED: hydrALAZINE HCl Inj 20 MG/ML Vial IV.PUSH PRN (01:58)
[2018-07-11] MEDS ORDERED: niCARdipine Inj 25 MG in Sodium Chlor 0.9% Inj 240 ML IV.CONT PRN (01:58)
[2018-07-11] MEDS: Sod Chloride 0.9% Inj 1,000 ML IV.CONT SCH ×2 (02:05→20:58)
[2018-07-11] MEDS: Chlorhexidine Gluconate 2% 1 Pack (2 Cloths) TOPICAL SCH (03:52)
[2018-07-11] MEDS ORDERED: Chlorhexidine Gluconate 2% 1 Pack (2 Cloths) TOPICAL PRN (04:00)
[2018-07-11] MEDS ORDERED: Labetalol HCl Inj 20 MG/4 ML Vial IV.PUSH PRN (06:45)
[2018-07-11] MEDS ORDERED: Potassium Phosphate 500 MG Soluble Tablet PO PRN ×2 (08:01)
[2018-07-11] MEDS ORDERED: Sodium Phosphate Inj 30 MMOL in Sodium Chlor 0.9% Inj 250 ML IV.SIG PRN (08:01)
[2018-07-11] MEDS ORDERED: Magnesium Sulfate Inj 2 GM in Sodium Chlor 0.9% Inj 96 ML IV.SIG PRN (08:01)
[2018-07-11] MEDS ORDERED: Magnesium Sulfate Inj 4 GM in Sodium Chlor 0.9% Inj 92 ML IV.SIG PRN (08:01)
[2018-07-11] MEDS ORDERED: Potassium Chlor 20 mEq Premix 20 MEQ/100 ML PIGGYBACK IV.SIG PRN ×2 (08:01)
[2018-07-11] MEDS ORDERED: Potassium Phosphate Inj 30 MMOL in Sodium Chlor 0.9% Inj 250 ML IV.SIG PRN (08:01)
[2018-07-11] MEDS ORDERED: Potassium Chloride Liq 20 MEQ/15 ML UDC PO PRN ×2 (08:01)
[2018-07-11] MEDS ORDERED: Potassium Chlor 40 mEq Premix 40 MEQ/100 ML PIGGYBACK IV.SIG PRN ×2 (08:01)
[2018-07-11] MEDS ORDERED: Magnesium Oxide 400 MG Tablet PO PRN (08:01)
[2018-07-11] MEDS ORDERED: Dextrose 50% in Water 50 ML Vial IV.PUSH PRN (08:02)
--- NOTE | 2018-07-11 08:53 | ECG ---
Date Performed: 07/10/2018 Time Performed: 19:12:28 PTAGE: 63 years EKG: SINUS BRADYCARDIA WITH SINUS ARRHYTHMIA BORDERLINE ECG No significant change from prior dasha ctrocardiogram. PREVIOUS TRACING : 05/12/2018 19.56 DOCTOR: Raghavendra Beaver Interpretating Date/Time 07/11/2018 08:52:18
[2018-07-11] MEDS: Senna/Docusate Sodium 8.6/50 MG Tablet PO SCH ×2 (09:32→21:01)
[2018-07-11] MEDS: Famotidine 20 MG Tablet PO SCH ×2 (09:32→21:00)
--- NOTE | 2018-07-11 10:24 | P.CONNS ---
History of Present Illness Service: Neurosurgery Consult date: 07/11/18 Requesting Physician: Gloria Wilcox Reason for Consult: brain lesion Primary Care Provider: Elver Plummer Chief Complaint: Fall, left-sided weakness History of Present Illness: this is a pleasant 63-year-old male with past medical history of colorectal cancer s/p rectosigmoidectomy with diverting ileostomy 11/06/[address] Roth and chemotherapy, which was reportedly completed in February and March 2018. He developed a right parietal-occipital mass with hemorrhage in April 2018 for which he underwent microsurgical resection on 05/14/18. His pathology showed adenocarcinoma consistent with his prior colorectal cancer. Prior to his surgery he was admitted to the hospital with left hemiparesis which had resolved postoperatively. He was brought to the ER with recurrent left hemiparesis since the evening of 07/09/18. He fell down that evening, but reportedly there was no head trauma. He does complain of a moderate throbbing headache. No seizure activity. no tongue bitting. no incontinence of stool or urine. No nausea, vomiting, photophobia, visual change. CT brain showed hemorrhage in the posterior right hemisphere with surrounding edema and 1.2 cm right to left midline shift with compression of right ventricle. IO recommended Decadron, and Keppra. His oncologist is Dr. Vasquez. He is not on anticoagulant or antiplatelet therapy. [facility] - History History Provided By: Patient, Family Member, Medical Record - Medical History Medical History: Medical History (Last Updated 07/11/18 @ 04:43 by Gloria Wilcox MD) Ileostomy present Infection of wound of perineum Port-A-Cath in place Colon cancer HTN (hypertension) - Surgical History Surgical History: Surgical History (Last Updated 07/11/18 @ 04:44 by Gloria Wilcox MD) History of colon resection History of craniotomy - Family History Family History: Family History (Last Updated 07/11/18 @ 04:45 by Gloria Wilcox MD) Sister Breast cancer - Tobacco History Second Hand Smoke Exposure: Yes Tobacco Use In Past 30 Days: Yes Smoking Status: Former smoker Tobacco Type: Cigarettes Smoking End Date: 2 weeks ago - Alcohol History How Often Do You Have a Drink Containing Alcohol: Never - Substance Use History Substance History: No History of Abuse - Travel History Recent Travel in the [facility] Within the Last 8 Weeks: No Recent Travel Out of the Country Within the Last 8 Weeks: No - Immunization History Tetanus Immunization: Unsure Medications and Allergies Active Medications: Active Medications Acetaminophen (Tylenol) 650 mg PO Q6H PRN PRN Reason: PAIN 1-10 AND/OR FEVER >101F Hydrocodone Bitart/Acetaminophen ([place] 5/325) 1 tab PO Q4H PRN PRN Reason: PAIN SCALE 1 TO 5 Last Admin: 07/11/18 09:33 Dose: 1 tab Al Hydroxide/Mg Hydroxide (Milk Of Ronnie Lijohn) 30 ml PO Q12H PRN PRN Reason: Mild Constipation Albuterol (Albuterol Neb (Prn)) 2.5 mg NEB Q2HR NEB PRN PRN Reason: SOB/WHEEZING Bisacodyl (Dulcolax Supp) 10 mg RECTAL DAILY PRN PRN Reason: SEVERE CONSITIPATION Chlorhexidine Gluconate (Chlorhexidine 2% Cloth) 3 pack TOPICAL DAILY@0400 KRZYSZTOF Stop: 07/16/18 03:59 Last Admin: 07/11/18 03:52 Dose: 3 pack Chlorhexidine Gluconate (Chlorhexidine 2% Cloth) 3 pack TOPICAL DAILY@0400 PRN PRN Reason: Extra cloth needed Stop: 07/16/18 03:59 Dexamethasone Sodium Phosphate (Decadron Inj) 4 mg IV.PUSH Q6HR [facility] Last Admin: 07/11/18 06:36 Dose: 4 mg Dextrose (D50w Vial) 50 ml IV.PUSH UNSCH PRN PRN Reason: PER HYPOGLYCEMIA PROTOCOL Famotidine (Pepcid) 20 mg PO BID [facility] Last Admin: 07/11/18 09:32 Dose: 20 mg Glucagon (Glucagon Inj) 1 mg OTHER PRN PRN PRN Reason: for Hypoglycemia Protocol Hydralazine HCl (Apresoline Inj) 10 mg IV.PUSH Q30M PRN PRN Reason: SBP >160 Levetiracetam 500 mg/ Sodium (Chloride) 105 mls @ 400 mls/hr IV.SIG Q12H [facility] Last Infusion: 07/11/18 00:50 Dose: Infused Sodium Chloride (Ns Inj) 1,000 mls @ 70 mls/hr IV.CONT .[id number] [facility] Last Infusion: 07/11/18 06:53 Dose: 70 mls/hr Nicardipine HCl 25 mg/ Sodium (Chloride) 250 mls @ 50 mls/hr IV.CONT TITRATE PRN; Protocol PRN Reason: Per Protocol Magnesium Sulfate 4 gm/ Sodium (Chloride) 100 mls @ 50 mls/hr IV.SIG UNSCH PRN PRN Reason: For Magnesium 0.9 - 1.1 mg/dL Potassium Chloride (Kcl 40 Meq Premix Inj) 40 meq in 100 mls @ 25 mls/hr IV.SIG Q2H PRN PRN Reason: For Potassium 2.8 - 3.2 mEq/L Potassium Chloride (Kcl 20 Meq Premix Inj) 20 meq in 100 mls @ 50 mls/hr IV.SIG Q2H PRN PRN Reason: For Potassium 3.3 - 3.5 mEq/L Potassium Chloride (Kcl 40 Meq Premix Inj) 40 meq in 100 mls @ 25 mls/hr IV.SIG UNSCH PRN PRN Reason: For Potassium 3.3 - 3.5 mEq/L Potassium Chloride (Kcl 20 Meq Premix Inj) 20 meq in 100 mls @ 50 mls/hr IV.SIG Q2H PRN PRN Reason: For Potassium 2.8 - 3.2 mEq/L Potassium Phosphate 30 mmol/ (Sodium Chloride) 260 mls @ 42 mls/hr IV.SIG UNSCH PRN PRN Reason: SEE LABEL COMMENTS Sodium Phosphate 30 mmol/ (Sodium Chloride) 260 mls @ 42 mls/hr IV.SIG UNSCH PRN PRN Reason: For Phosphorus < 2.5 mg/dL Magnesium Sulfate 2 gm/ Sodium (Chloride) 100 mls @ 50 mls/hr IV.SIG UNSCH PRN PRN Reason: For Magnesium 1.2 - 1.6 mg/dL Insulin Aspart (Novolog Insulin Correctional Sugar Inj) 0 unit SQ ACHS KRZYSZTOF; Protocol Labetalol HCl (Trandate Inj) 10 mg IV.PUSH Q4H PRN PRN Reason: SBP > 160 Lactulose (Lactulose Liq) 30 ml PO DAILY PRN PRN Reason: SEVERE CONSITIPATION Magnesium Oxide (Mag-Ox) 800 mg PO UNSCH PRN PRN Reason: For Magnesium 1.2 - 1.6 mg/dL Mannitol (Mannitol Inj) 25 gm IV.PUSH Q8H KRZYSZTOF Last Admin: 07/11/18 09:32 Dose: 25 gm Morphine Sulfate (Morphine Inj) 2 mg IV.PUSH Q2H PRN PRN Reason: PAIN SCALE 6 TO 10 Last Admin: 07/11/18 00:49 Dose: 2 mg Ondansetron HCl (Zofran Inj) 4 mg IV.PUSH Q6H PRN PRN Reason: NAUSEA OR VOMITING Potassium Chloride (Kcl Liq) 40 meq PO UNSCH PRN PRN Reason: Potassium level 3.3-3.5 mEq/L Potassium Chloride (Kcl Liq) 40 meq PO UNSCH PRN PRN Reason: POTASSIUM LESS THAN 3.5 Potassium Phosphate (K-Phos Original) 2,000 mg PO Q4H PRN PRN Reason: Phosphorus Less Than 2.5 mg/dL Potassium Phosphate (K-Phos Original) 2,000 mg PO UNSCH PRN PRN Reason: SEE LABEL COMMENTS Senna/Docusate Sodium (Janis-Colace) 1 tab PO BID [facility] Last Admin: 07/11/18 09:32 Dose: 1 tab Sennosides (Senokot) 17.2 mg PO Q12H PRN PRN Reason: Moderate Constipation Sodium Chloride (Ns Flush) 2 ml IV.FLUSH BID [facility] Last Admin: 07/11/18 09:32 Dose: 2 ml Sodium Chloride (Ns Flush) 2 ml IV.FLUSH PRN PRN PRN Reason: FLUSH AFTER USING IV ACCESS Allergies Allergy/AdvReac Type Severity Reaction Status Date / Time No Known Allergies Allergy Verified 05/12/18 19:29 Exam Vital signs: Vital Signs 07/10/18 18:50 07/10/18 19:13 07/10/18 21:00 Temperature 97.3 F L Pulse Rate 67 60 60 Respiratory Rate 18 20 20 Blood Pressure 140/74 149/71 H Pulse Oximetry 98 99 100 07/10/18 23:00 07/10/18 23:47 07/10/18 23:53 Temperature Pulse Rate 58 L 56 L 59 L Respiratory Rate 20 22 42 H Blood Pressure 148/70 H 143/73 H Pulse Oximetry 100 99 07/11/18 00:00 07/11/18 00:05 07/11/18 01:00 Temperature 97.8 F Pulse Rate 65 65 53 L Respiratory Rate 36 H 32 H 16 Blood Pressure 166/73 H Pulse Oximetry 99 99 100 07/11/18 01:05 07/11/18 02:00 07/11/18 02:05 Temperature Pulse Rate 64 56 L 55 L Respiratory Rate 22 12 9 L Blood Pressure 137/65 120/59 L Pulse Oximetry 100 99 100 07/11/18 03:00 07/11/18 03:05 07/11/18 04:00 Temperature 97.6 F Pulse Rate 56 L 57 L 60 Respiratory Rate 13 13 15 Blood Pressure 108/59 L Pulse Oximetry 98 98 98 07/11/18 04:05 07/11/18 05:00 07/11/18 05:05 Temperature Pulse Rate 63 51 L 58 L Respiratory Rate 19 48 H 22 Blood Pressure 115/66 117/58 L Pulse Oximetry 98 98 100 07/11/18 06:00 07/11/18 06:05 07/11/18 07:00 Temperature Pulse Rate 60 54 L 59 L Respiratory Rate 40 H 21 42 H Blood Pressure 121/60 Pulse Oximetry 100 100 99 07/11/18 07:05 07/11/18 08:00 07/11/18 08:05 Temperature 97.8 F Pulse Rate 51 L 54 L 66 Respiratory Rate 44 H 35 H 45 H Blood Pressure 150/71 H 156/74 H Pulse Oximetry 99 99 99 07/11/18 09:00 07/11/18 09:05 Temperature Pulse Rate 70 65 Respiratory Rate 31 H 21 Blood Pressure 136/68 Pulse Oximetry 100 99 Intake & Output 07/10/18 07/11/18 07/11/18 18:59 06:59 18:59 Intake Total 459 / 459 Balance 459 / 459 Weight 81.647 kg 81.4 kg Intake: IV 459 / 459 NS Inj 1,000 ML @ 70 mls/hr IV. 354 / 354 CONT .[id number] KRZYSZTOF Rx#:[id number] Keppra Inj 500 MG In NS Inj 100 105 / 105 ML @ 400 mls/hr IV.SIG Q12H KRZYSZTOF Rx#:[id number] Other: # Incontinent Voids 2 # Urine Diapers 2 Date of Last Bowel Movement 07/11/18 Weight On Admission 81.4 kg Narrative: The patient is alert, awake. Comfortable, in no acute distress. Speech is fluent. Cranial nerve examination: pupils to be equal, round and reactive to light. Extra-ocular movements are intact. Facial motor and sensory function are normal and symmetrical. Gross hearing appears intact. Sternocleidomastoid and trapezius muscles are symmetrical. Other cranial nerves are intact. Neck is soft and supple with a good range of motion without pain. Muscle strength is normal in all muscle groups of both upper and lower extremities. Sensory examination is intact to light touch and pin prick in right upper and lower extremities with 4/5 on the left. Deep tendon reflexes are symmetrical in both upper and lower extremities. There is a bilateral plantar flexion response. Cerebellar examination is unremarkable, without deficits. Lungs are clear Heart regular rhythm is regular rate Skin warm and dry Results - Laboratory Findings CBC and BMP: 07/10/18 19:40 07/10/18 19:40 Abnormal lab findings: Abnormal Labs 07/10/18 07/10/18 07/11/18 19:40 19:40 00:27 RBC 4.19 L Hgb 12.8 L Hct 37.2 L Neut % (Auto) 84.8 H Lymph % (Auto) 6.5 L Lymph # (Auto) 0.5 L Chloride 109 H Anion Gap 4 L Estimated GFR 71 L Osmolality 296 H Albumin 3.2 L 07/11/18 04:24 RBC Hgb Hct Neut % (Auto) Lymph % (Auto) Lymph # (Auto) Chloride Anion Gap Estimated GFR Osmolality 300 H Albumin Assessment and Plan - Plan I have reviewed the clinical and radiological findings Cervical Spine CT 07/10/18 19:35 CONCLUSION: 1. Moderate degenerative change. No acute findings. Chest X-Ray 07/10/18 19:35 CONCLUSION: Right [id number]-Prog in superior vena cava. Abnormal perihilar density, possibly adenopathy or perihilar infiltrate with a possible nodule at the right lung base. Findings would be better evaluated with chest CT. Head CT 07/10/18 19:35 CONCLUSION: 1. New hemorrhage, edema and worsening mass effect in the right hemisphere with midline shift increasing from 8 mm to 12 mm since April 2018. Knee X-Ray 07/10/18 19:35 CONCLUSION: No acute findings. Mild osteoarthritis of the left knee. Neuro: neuro checks in a serial fashion. decadron 4mg IV every 6 hrs. Probable recurrent brain tumor. recommend follow up MRI brain. I am not sure if he would be a candidate for further brain surgery. 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 Consult oncology Pulmonary: aggressive pulmonary toilette, nasotracheal suction, and breathing treatments with nebulizers. Daily PT and OT Renal: Continue to monitor closely urine output, BUN and creatinine Endocrine: Continue to Monitor serial Acu checks and SSI as needed in detail ID continue to monitor for signs of infection Continue Protonix for stress ulcer prophylaxis Continue Melvin hose and SCD's for DVT prophylaxis Further recommendations will be provided depending on the patient's clinical evaluation and follow up studies.
[2018-07-11] MEDS ORDERED: Gadobutrol PF 10 MMOL/10 ML Vial (for RAD) IV.SIG ONE (10:52)
--- NOTE | 2018-07-11 11:22 | MR ---
EXAM DATE: 07/11/2018 11:07 AM EST AGE/SEX: 63 years / Male INDICATIONS: Cephalgia. Left side weakness. New hemorrhage. CLINICAL DATA: This is the patient's initial encounter. Patient reports that signs and symptoms have been present for 2 days and indicates a pain score of 0/10. MEDICAL/SURGICAL HISTORY: Hypertension. Carcinoma, colon. Metastatic disease. Colostomy. Col on resection. COMPARISON: [facility] – [place], MR HEAD W & W/O CONTRAST, 05/12/2018. [facility] [place], CT HEAD W/O CONTRAST, 07/10/2018. . TECHNIQUE: Multiplanar, multisequence examination of the brain was performed without and with 8cc ml Gadavist (gadobutrol) contrast as a single exam dose. FINDINGS: Cerebrum: Prominent edema throughout the right occipital and parietal lobe with mass effect and righ t-to-left midline shift of 8 to 9 mm. Large mass in the occipital lobe. No extraaxial fluid collecti ons are seen. The pituitary gland and suprasellar cistern are normal in configuration. White Matter: No significant signal abnormalities are seen in the white matter. Posterior Fossa: The cerebellum and brainstem are intact. The 4th ventricle is midline. The cerebel lopontine angle is unremarkable. The cerebellar tonsils are normal in position. Diffusion Imaging: No focal areas of restricted diffusion are seen. No evidence of acute infarction . Extracranial: The visualized portions of the orbits and paranasal sinuses are unremarkable. Post Contrast: Heterogeneous enhancing mass within the right occipital lobe measures approximately 5 .6 x 4.2 cm. Peripheral enhancing mass with multiple septations. Several masses are seen slightly inf eriorly measuring 2.3 and 2.5 cm. The mass does extend through previous craniectomy defect and involv es the calvarium measuring 16 x 15 mm. There is hemorrhagic component to these mass. CONCLUSION: 1. Large enhancing hemorrhagic mass in the right occipital lobe with adjacent vasogenic edema with m ass effect and dtioy-kz-uupk midline shift of 8 to 9 mm. 2. Several other smaller enhancing masses are seen in the right occipital lobe and also there is ext ension through the craniotomy defect and involves the right occipital calvarium as above. Electronically signed by: Ochoa Chavez MD Board Certified Radiologist 07/11/2018 11:20 AM EST
[2018-07-11] MEDS: Insulin NovoLOG Aspart Correctional Sugar Inj SQ SCH ×3 (13:37→21:08)
--- NOTE | 2018-07-11 13:41 | MB ---
cc: Agus Terrazas MD DATE: 07/11/2018 REASON FOR CONSULTATION: Rectovesical fistula and stroke. HISTORY OF PRESENT DISEASE: This 63-year-old gentleman is known to me from previous admissions. He was admitted last year with a large left occipital lesion which was first thought to be result of a trauma. However, it was very clear that the patient had a metastatic lesion into the brain. The patient underwent a resection of the same by Dr. Fermin and did well. The patient now comes back with recurrent left hemiparesis starting about 24 hours ago. He fell this evening but did not sustain had trauma. CT brain shows hemorrhage in the posterior right hemisphere with surrounding edema and left midline shift. The patient is now admitted to ICU service and has the consultation. PAST MEDICAL HISTORY: Colon cancer. SURGICAL HISTORY: Colon resection and diverting colostomy as well. Craniotomy. SOCIAL HISTORY: The patient used to smoke and drink. Does not do either. PHYSICAL EXAMINATION: GENERAL: A pleasant 63-year-old male. Awake, alert, oriented, appearing somewhat older than his actual age. HEENT: Normocephalic. No trauma to the head. Pupils equal, reactive. Extraocular muscles are intact. The patient has bilateral carotid pulses and bilateral faint bruits, but no carotid stenosis as checked before. CHEST: Bilateral breath sounds. HEART: Regular rate and rhythm. Hemodynamically, the patient is stable. ABDOMEN: Soft. Active bowel sounds. EXTREMITIES: Left hemiparesis. IMPRESSION AND RECOMMENDATIONS: At this point based on the previous surgery, I would not place a Mccormick catheter in this patient. He has a permanent fistula into the rectal vault, and unfortunately, this cannot be treated at this time. The patient passes urine through the rectum and has a diverting colostomy on the right side. At this point, abdominal condition is nontreatable and should be left alone. I agree fully with neurosurgical management. Thank you very much for the referral. MD PIERRE Giron/cathleen , 12:27 PM , 12:33 PM
[2018-07-12 04:13] LABS: Baso % (Auto) 0.2 % (0.0-2.0); Hemoglobin 12.3 gm/dL (13.0-17.0); Lymph # (Auto) 0.6 th/mm3 (1.0-4.8); Lymph % (Auto) 7.2 % (9.0-44.0); Mean Corpuscular HGB Conc 34.3 % (32.0-36.0); Mean Corpuscular Volume 87.3 fL (80.0-100.0); Mean Platelet Volume 8.2 fL (7.0-11.0); Mono # (Auto) 0.2 th/mm3 (0.0-0.9); Mono % (Auto) 2.2 % (0.0-8.0); Neut # (Auto) 7.1 th/mm3 (1.8-7.7); Neut % (Auto) 90.4 % (16.0-70.0); Platelet Count 199 th/mm3 (150-450); Red Blood Count 4.12 mil/mm3 (4.50-5.90); White Blood Count 7.8 th/mm3 (4.0-11.0)
[2018-07-12] MEDS: Chlorhexidine Gluconate 2% 1 Pack (2 Cloths) TOPICAL SCH (04:31)
[2018-07-12 04:45] LABS: Calcium 8.5 mg/dL (8.5-10.1); Carbon Dioxide 22.3 meq/L (21.0-32.0); Potassium 4.4 meq/L (3.5-5.1)
--- NOTE | 2018-07-12 08:53 | P.PNNS ---
Subjective Interval history: This is a pleasant 63-year-old male with past medical history of colorectal cancer s/p rectosigmoidectomy with diverting ileostomy 11/06/[address] Roth and chemotherapy, which was reportedly completed in February and March 2018. He developed a right parietal-occipital mass with hemorrhage in April 2018 for which he underwent microsurgical resection on 05/14/18. His pathology showed adenocarcinoma consistent with his prior colorectal cancer. Prior to his surgery he was admitted to the hospital with left hemiparesis which had resolved postoperatively. He was brought to the ER with recurrent left hemiparesis since the evening of 07/09/18. He fell down that evening, but reportedly there was no head trauma. He does complain of a moderate throbbing headache. No seizure activity. no tongue bitting. no incontinence of stool or urine. No nausea, vomiting, photophobia, visual change. 07/12. Neurologically unchanges. No acute events overnight Physical Exam Vital signs: Vital Signs 07/11/18 09:00 07/11/18 09:05 07/11/18 10:00 Temperature Pulse Rate 70 65 62 Respiratory Rate 31 H 21 22 Blood Pressure 136/68 Pulse Oximetry 100 99 98 07/11/18 10:05 07/11/18 11:21 07/11/18 11:23 Temperature Pulse Rate 58 L 59 L 61 Respiratory Rate 18 23 Blood Pressure 128/71 105/60 Pulse Oximetry 98 99 07/11/18 12:00 07/11/18 13:00 07/11/18 14:00 Temperature 98.4 F Pulse Rate 54 L 51 L 50 L Respiratory Rate 12 14 10 L Blood Pressure 126/60 121/65 111/55 L Pulse Oximetry 98 100 100 07/11/18 15:00 07/11/18 16:00 07/11/18 17:00 Temperature 98.1 F Pulse Rate 62 52 L 59 L Respiratory Rate 27 H 16 23 Blood Pressure 138/67 121/57 L 124/67 Pulse Oximetry 100 99 99 07/11/18 18:00 07/11/18 19:00 07/11/18 20:00 Temperature 97.9 F Pulse Rate 50 L 52 L 65 Respiratory Rate 12 11 L 40 H Blood Pressure 130/60 105/53 L 149/72 H Pulse Oximetry 99 98 100 07/11/18 21:00 07/11/18 22:00 07/11/18 23:00 Temperature Pulse Rate 63 50 L 51 L Respiratory Rate 26 H 8 L 15 Blood Pressure 135/81 114/53 L 119/56 L Pulse Oximetry 99 99 99 07/12/18 00:00 07/12/18 01:00 07/12/18 02:00 Temperature 97.8 F Pulse Rate 68 49 L 52 L Respiratory Rate 15 10 L 15 Blood Pressure 117/58 L 90/55 L 107/54 L Pulse Oximetry 100 99 99 07/12/18 03:00 07/12/18 04:00 07/12/18 05:00 Temperature 97.8 F Pulse Rate 46 L 49 L 43 L Respiratory Rate 12 11 L 10 L Blood Pressure 110/58 L 111/53 L 101/53 L Pulse Oximetry 99 99 99 07/12/18 06:00 07/12/18 08:00 Temperature Pulse Rate 41 L Respiratory Rate 9 L Blood Pressure 102/55 L Pulse Oximetry 98 100 Intake & Output 07/11/18 07/12/18 07/12/18 18:59 06:59 18:59 Intake Total 1251 / 1251 105 / 105 Output Total 755 / 755 150 / 150 Balance 496 / 496 -45 / -45 Weight 81.8 kg Intake: IV 751 / 751 105 / 105 NS Inj 1,000 ML @ 70 mls/hr IV. 646 / 646 CONT .[id number] [facility] Rx#:[id number] Keppra Inj 500 MG In NS Inj 100 105 / 105 105 / 105 ML @ 400 mls/hr IV.SIG Q12H [facility] Rx#:[id number] Oral 500 / 500 Output: Urine 325 / 325 Stool Amount (Stoma) 430 / 430 150 / 150 Pre-Hospital: Right Upper 430 / 430 150 / 150 Abdomen Other: # Voids 6 1 # Incontinent Voids 5 3 # Urine Diapers 1 2 Date of Last Bowel Movement 07/11/18 07/11/18 Narrative: The patient is alert, awake. Comfortable, in no acute distress. Speech is fluent. Cranial nerve examination: pupils to be equal, round and reactive to light. Extra-ocular movements are intact. Facial motor and sensory function are normal and symmetrical. Gross hearing appears intact. Sternocleidomastoid and trapezius muscles are symmetrical. Other cranial nerves are intact. Neck is soft and supple with a good range of motion without pain. Muscle strength is normal in all muscle groups of both upper and lower extremities. Sensory examination is intact to light touch and pin prick in right upper and lower extremities with 4/5 on the left. Deep tendon reflexes are symmetrical in both upper and lower extremities. There is a bilateral plantar flexion response. Cerebellar examination is unremarkable, without deficits. Lungs are clear Heart regular rhythm is regular rate Skin warm and dry Assessment and Plan - Plan I have reviewed the clinical and radiological findings Head MRI 07/11/18 00:00 CONCLUSION: 1. Large enhancing hemorrhagic mass in the right occipital lobe with adjacent vasogenic edema with mass effect and wkydy-od-uclt midline shift of 8 to 9 mm. 2. Several other smaller enhancing masses are seen in the right occipital lobe and also there is extension through the craniotomy defect and involves the right occipital calvarium as above. Neuro: neuro checks in a serial fashion. Continue decadron 4mg IV every 6 hrs. He has a recurrent brain tumor. I reviewed his follow up MRI brain. He may not be a candidate for further brain surgery. he is very frial and debilitated, he needs to be carefully evaluated with CT chest, abdomen, and pelvis, and reevaluation of his colovesical fistula. Consult oncology Pulmonary: aggressive pulmonary toilette, nasotracheal suction, and breathing treatments with nebulizers. Daily PT and OT Renal: Continue to monitor closely urine output, BUN and creatinine Endocrine: Continue to Monitor serial Acu checks and SSI as needed in detail ID continue to monitor for signs of infection Continue Protonix for stress ulcer prophylaxis Continue Melvin hose and SCD's for DVT prophylaxis Further recommendations will be provided depending on the patient's clinical evaluation and follow up studies.
--- NOTE | 2018-07-12 09:27 | P.PNIM ---
Subjective Interval history: f/u; brain cancer in no acute distress. denies headache, dizziness or nausea/vomiting. Physical Exam Vital signs: Vital Signs 07/11/18 10:00 07/11/18 10:05 07/11/18 11:21 Temperature Pulse Rate 62 58 L 59 L Respiratory Rate 22 18 Blood Pressure 128/71 Pulse Oximetry 98 98 07/11/18 11:23 07/11/18 12:00 07/11/18 13:00 Temperature 98.4 F Pulse Rate 61 54 L 51 L Respiratory Rate 23 12 14 Blood Pressure 105/60 126/60 121/65 Pulse Oximetry 99 98 100 07/11/18 14:00 07/11/18 15:00 07/11/18 16:00 Temperature 98.1 F Pulse Rate 50 L 62 52 L Respiratory Rate 10 L 27 H 16 Blood Pressure 111/55 L 138/67 121/57 L Pulse Oximetry 100 100 99 07/11/18 17:00 07/11/18 18:00 07/11/18 19:00 Temperature Pulse Rate 59 L 50 L 52 L Respiratory Rate 23 12 11 L Blood Pressure 124/67 130/60 105/53 L Pulse Oximetry 99 99 98 07/11/18 20:00 07/11/18 21:00 07/11/18 22:00 Temperature 97.9 F Pulse Rate 65 63 50 L Respiratory Rate 40 H 26 H 8 L Blood Pressure 149/72 H 135/81 114/53 L Pulse Oximetry 100 99 99 07/11/18 23:00 07/12/18 00:00 07/12/18 01:00 Temperature 97.8 F Pulse Rate 51 L 68 49 L Respiratory Rate 15 15 10 L Blood Pressure 119/56 L 117/58 L 90/55 L Pulse Oximetry 99 100 99 07/12/18 02:00 07/12/18 03:00 07/12/18 04:00 Temperature 97.8 F Pulse Rate 52 L 46 L 49 L Respiratory Rate 15 12 11 L Blood Pressure 107/54 L 110/58 L 111/53 L Pulse Oximetry 99 99 99 07/12/18 05:00 07/12/18 06:00 07/12/18 07:00 Temperature Pulse Rate 43 L 41 L 46 L Respiratory Rate 10 L 9 L 12 Blood Pressure 101/53 L 102/55 L 105/51 L Pulse Oximetry 99 98 100 07/12/18 08:00 07/12/18 09:00 Temperature 97.7 F Pulse Rate 62 49 L Respiratory Rate 24 11 L Blood Pressure 123/57 L 115/55 L Pulse Oximetry 99 98 Intake & Output 07/11/18 07/12/18 07/12/18 18:59 06:59 18:59 Intake Total 1251 / 1251 105 / 105 Output Total 755 / 755 150 / 150 Balance 496 / 496 -45 / -45 Weight 81.8 kg Intake: IV 751 / 751 105 / 105 NS Inj 1,000 ML @ 70 mls/hr IV. 646 / 646 CONT .[id number] [facility] Rx#:[id number] Keppra Inj 500 MG In NS Inj 100 105 / 105 105 / 105 ML @ 400 mls/hr IV.SIG Q12H [facility] Rx#:[id number] Oral 500 / 500 Output: Urine 325 / 325 Stool Amount (Stoma) 430 / 430 150 / 150 Pre-Hospital: Right Upper 430 / 430 150 / 150 Abdomen Other: # Voids 6 1 # Incontinent Voids 5 3 # Urine Diapers 1 2 Date of Last Bowel Movement 07/11/18 07/11/18 Constitutional no acute distress Routine Respiratory Exam Present CTA bilaterally Routine Cardiovascular Exam Present RRR Routine Abdominal Exam Present soft Routine Extremities Exam Comments: no pedal edema. Routine Neurological Exam Present alert and oriented X3 Results Labs CBC & Chem 7: 07/12/18 02:55 07/12/18 02:55 Imaging Imaging: Impressions Head MRI 07/11/18 00:00 CONCLUSION: 1. Large enhancing hemorrhagic mass in the right occipital lobe with adjacent vasogenic edema with mass effect and awvul-hx-dkvq midline shift of 8 to 9 mm. 2. Several other smaller enhancing masses are seen in the right occipital lobe and also there is extension through the craniotomy defect and involves the right occipital calvarium as above. 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 1.2 cm midline shift. History of adenocarcinoma colon s/p rectosigmoidectomy and diverting ileostomy (Dr. Roth) History of craniotomy with microsurgical resection of tumor 05/14/18 Dr. Fermin Decadron 4 mg IV every 6 hours. Mannitol 25 g IV every 8 hours. Obtain MRI with and without contrast. Keppra 500 mg IV q12 hours. Neurosurgery consult, Dr. Fermin. will consult Oncology. PROPH: SCDs for DVT prophylaxis. Pharmacology DVT prophylaxis is contraindicated due to intracerebral hemorrhage. Famotidine for stress ulcer prophylaxis Progress Note: Quality VTE Deep Vein Thrombosis/Pulmonary Embolism Present on Admission: No
[2018-07-12] MEDS: Insulin NovoLOG Aspart Correctional Sugar Inj SQ SCH ×4 (10:02→20:36)
[2018-07-12] MEDS: Famotidine 20 MG Tablet PO SCH ×2 (10:02→20:20)
[2018-07-12] MEDS: Senna/Docusate Sodium 8.6/50 MG Tablet PO SCH ×2 (10:02→20:20)
[2018-07-12] MEDS: Sod Chloride 0.9% Inj 1,000 ML IV.CONT SCH ×2 (13:31→20:36)
[2018-07-12] MEDS ORDERED: Benzocaine/Menthol 15 MG/3.6 MG SF Lozenge BUCCAL PRN (20:00)
[2018-07-12] MEDS ORDERED: Diatrizoate Meglum/Diatrizoate Sod Liq 9 ML UDC PO ONE (22:00)
--- NOTE | 2018-07-12 22:53 | MB ---
cc: Lina Olmos MD DATE: 07/12/2018 CHIEF COMPLAINT: Metastatic colon cancer. HISTORY OF PRESENT ILLNESS: The patient is a 63-year-old gentleman with a history of colorectal cancer. He is status post rectosigmoidectomy with diverting ileostomy 11/06/[address] Chong. He reportedly received chemotherapy in an adjuvant manner. In 04/2018, he was diagnosed with parietal occipital mass with hemorrhage. He underwent surgical resection under the direction of Dr. Fermin in 04/2018. Pathology revealed adenocarcinoma consistent with prior colorectal cancer. Left hemiparesis resolved postoperatively. He presented to the hospital on 07/09/2018 with return of left-sided hemiparesis and falling. CT reported hemorrhage in the posterior right hemisphere with surrounding edema and 1.2-cm tumfy-ar-dvyq midline shift with compression of right ventricle. Head MRI that was obtained after neurosurgery consultation revealed large enhancing hemorrhagic mass in the right occipital lobe with adjacent vasogenic edema with mass effect and nelum-ru-fnib midline shift. Several other enhancing masses are seen in the right occipital lobe and there is extension through the craniotomy defect and involves the right occipital calvarium. He has been evaluated by the neurosurgery service. He is currently on Decadron. Neurosurgery feels that he may not be a candidate for further brain surgery due to debilitation. REVIEW OF SYSTEMS: As above in the HPI. All others negative. PAST MEDICAL HISTORY: 1. Colorectal cancer. 2. Hypertension. PAST SURGICAL HISTORY: History of colon resection, history of craniotomy. FAMILY HISTORY: Sister with a history of breast cancer. SOCIAL HISTORY: Denies tobacco, alcohol, or illegal drug use currently. ALLERGIES: NO KNOWN DRUG ALLERGIES. HOSPITAL MEDICATIONS: Include: 1. Albuterol. 2. Dexamethasone. 3. Famotidine. 4. Hydralazine. 5. Hydrocodone. 6. Tylenol. 7. Lactulose. 8. Keppra. 9. Zofran. 10. Potassium. LABORATORY STUDIES: White blood cell count 7.8, hemoglobin 12.3, and platelet count 199,000. PHYSICAL EXAMINATION: VITAL SIGNS: Temperature of 97.7, pulse 54, blood pressure 163/72. GENERAL: No distress, resting comfortably in bed. HEENT: Head: Normocephalic, atraumatic. Eyes: No scleral icterus. NECK: Supple. CARDIOVASCULAR: Regular rate and rhythm. No murmurs. RESPIRATORY: Clear to auscultation bilaterally. ABDOMEN: Soft, nontender. EXTREMITIES: No edema. ASSESSMENT AND PLAN: History of metastatic colon cancer with metastatic disease to the calvarium. He is status post surgical resection with what appears to be adjuvant chemotherapy, then in April, was found to have metastatic disease to the brain. He now has recurrent metastatic disease to the brain. We will order a CT scan of the chest, abdomen, and pelvis to evaluate for further areas of metastatic disease. We will also order CEA level. If he has extensive metastatic disease, hospice and palliative care may be the best option for this patient. If he has metastatic disease that is only present in the brain, could consider surgical resection if he is deemed to be a candidate by the neurosurgery team versus radiation. Inpatient oncology service will continue to follow. MD NO Leigh/rodolfo/ , 09:30 PM , 09:38 PM
[2018-07-13] MEDS: Sod Chloride 0.9% Inj 1,000 ML IV.CONT SCH ×3 (04:00→18:46)
[2018-07-13] MEDS: Chlorhexidine Gluconate 2% 1 Pack (2 Cloths) TOPICAL SCH (04:01)
[2018-07-13] MEDS: Senna/Docusate Sodium 8.6/50 MG Tablet PO SCH ×2 (08:04→20:52)
[2018-07-13] MEDS: Famotidine 20 MG Tablet PO SCH ×2 (08:04→20:52)
[2018-07-13] MEDS: Insulin NovoLOG Aspart Correctional Sugar Inj SQ SCH ×4 (08:04→20:53)
--- NOTE | 2018-07-13 08:45 | P.PNNS ---
Subjective Interval history: This is a pleasant 63-year-old male with past medical history of colorectal cancer s/p rectosigmoidectomy with diverting ileostomy 11/06/[address] Roth and chemotherapy, which was reportedly completed in February and March 2018. He developed a right parietal-occipital mass with hemorrhage in April 2018 for which he underwent microsurgical resection on . His pathology showed adenocarcinoma consistent with his prior colorectal cancer. Prior to his surgery he was admitted to the hospital with left hemiparesis which had resolved postoperatively. He was brought to the ER with recurrent left hemiparesis since the evening of 07/09/18. He fell down that evening, but reportedly there was no head trauma. He does complain of a moderate throbbing headache. No seizure activity. no tongue bitting. no incontinence of stool or urine. No nausea, vomiting, photophobia, visual change. 07/12. Neurologically unchanges. No acute events overnight 07/13. no changes overnight. Metastatic workup in progress. Physical Exam Vital signs: Vital Signs 07/12/18 09:00 07/12/18 10:00 07/12/18 11:30 Temperature Pulse Rate 49 L 56 L Respiratory Rate 11 L 20 Blood Pressure 115/55 L 126/61 129/62 Pulse Oximetry 98 99 07/12/18 12:00 07/12/18 14:00 07/12/18 16:00 Temperature 97.7 F 97.7 F Pulse Rate 50 L 50 L 64 Respiratory Rate 13 14 19 Blood Pressure 103/63 107/54 L 135/67 Pulse Oximetry 98 98 99 07/12/18 18:00 07/12/18 19:23 07/12/18 20:00 Temperature Pulse Rate 56 L 58 L 54 L Respiratory Rate 14 17 16 Blood Pressure 131/67 144/78 H 163/72 H Pulse Oximetry 97 100 97 07/12/18 20:37 07/12/18 21:00 07/12/18 22:00 Temperature 98.1 F Pulse Rate 56 L 53 L 58 L Respiratory Rate 18 13 16 Blood Pressure 150/70 H 136/77 110/53 L Pulse Oximetry 98 99 98 07/12/18 23:00 07/13/18 00:00 07/13/18 01:00 Temperature 98.6 F Pulse Rate 60 48 L 52 L Respiratory Rate 18 17 10 L Blood Pressure 129/63 140/73 112/57 L Pulse Oximetry 95 97 07/13/18 02:00 07/13/18 03:00 07/13/18 04:00 Temperature 98.5 F Pulse Rate 52 L 55 L 55 L Respiratory Rate 16 11 L 14 Blood Pressure 133/63 117/56 L 132/61 Pulse Oximetry 93 L 96 96 07/13/18 05:00 07/13/18 06:00 Temperature Pulse Rate 55 L 48 L Respiratory Rate 12 12 Blood Pressure 101/52 L 87/50 L Pulse Oximetry 97 97 Intake & Output 07/12/18 07/13/18 07/13/18 18:59 06:59 18:59 Intake Total 2425 / 2425 1785 / 1785 Output Total 870 / 870 650 / 650 Balance 1555 / 1555 1135 / 1135 Weight 81.8 kg Intake: IV 1105 / 1105 1105 / 1105 NS Inj 1,000 ML @ 70 mls/hr IV. 1000 / 1000 1000 / 1000 CONT .[id number] [facility] Rx#:[id number] Keppra Inj 500 MG In NS Inj 100 105 / 105 105 / 105 ML @ 400 mls/hr IV.SIG Q12H [facility] Rx#:[id number] Oral 1120 / 1120 680 / 680 Other 200 / 200 Output: Urine 400 / 400 500 / 500 Stool Amount (Stoma) 470 / 470 150 / 150 Pre-Hospital: Right Upper 470 / 470 150 / 150 Abdomen Other: # Voids 3 2 # Urine Diapers 1 Date of Last Bowel Movement 07/12/18 07/12/18 # Bowel Movements 1 Narrative: The patient is alert, awake. Comfortable, in no acute distress. Speech is fluent. Cranial nerve examination: pupils to be equal, round and reactive to light. Extra-ocular movements are intact. Facial motor and sensory function are normal and symmetrical. Gross hearing appears intact. Sternocleidomastoid and trapezius muscles are symmetrical. Other cranial nerves are intact. Neck is soft and supple with a good range of motion without pain. Muscle strength is normal in all muscle groups of both upper and lower extremities. Sensory examination is intact to light touch and pin prick in upper and lower extremities with 4+/5 on the left. Deep tendon reflexes are symmetrical in both upper and lower extremities. There is a bilateral plantar flexion response. Cerebellar examination is unremarkable, without deficits. Lungs are clear Heart regular rhythm is regular rate Skin warm and dry - Constitutional mild distress Assessment and Plan - Plan I have reviewed the clinical and radiological findings Head MRI 07/11/18 00:00 CONCLUSION: 1. Large enhancing hemorrhagic mass in the right occipital lobe with adjacent vasogenic edema with mass effect and jxqwu-[id number] midline shift of 8 to 9 mm. 2. Several other smaller enhancing masses are seen in the right occipital lobe and also there is extension through the craniotomy defect and involves the right occipital calvarium as above. Neuro: neuro checks in a serial fashion. Continue decadron 4mg IV every 6 hrs. He has a recurrent brain tumor. I again reviewed his follow up MRI brain and discussed with him the alternatives of treatment. he does not want surgery. CT chest, abdomen and pelvis today. Please, consult oncology Colovesical fistula. It is chronic, at risk for complications Pulmonary: aggressive pulmonary toilette, nasotracheal suction, and breathing treatments with nebulizers. Daily PT and OT Renal: Continue to monitor closely urine output, BUN and creatinine Endocrine: Continue to Monitor serial Acu checks and SSI as needed in detail ID continue to monitor for signs of infection Continue Protonix for stress ulcer prophylaxis Continue Melvin hose and SCD's for DVT prophylaxis Further recommendations will be provided depending on the patient's clinical evaluation and follow up studies.
--- NOTE | 2018-07-13 09:06 | P.PNIM ---
Subjective Interval history: f/u; brain cancer in no acute distress. overall looks comfortable. no headache, nausea or dizziness. has some hoarseness but with no sore throat. Physical Exam Vital signs: Vital Signs 07/12/18 10:00 07/12/18 11:30 07/12/18 12:00 Temperature 97.7 F Pulse Rate 56 L 50 L Respiratory Rate 20 13 Blood Pressure 126/61 129/62 103/63 Pulse Oximetry 99 98 07/12/18 14:00 07/12/18 16:00 07/12/18 18:00 Temperature 97.7 F Pulse Rate 50 L 64 56 L Respiratory Rate 14 19 14 Blood Pressure 107/54 L 135/67 131/67 Pulse Oximetry 98 99 97 07/12/18 19:23 07/12/18 20:00 07/12/18 20:37 Temperature 98.1 F Pulse Rate 58 L 54 L 56 L Respiratory Rate 17 16 18 Blood Pressure 144/78 H 163/72 H 150/70 H Pulse Oximetry 100 97 98 07/12/18 21:00 07/12/18 22:00 07/12/18 23:00 Temperature Pulse Rate 53 L 58 L 60 Respiratory Rate 13 16 18 Blood Pressure 136/77 110/53 L 129/63 Pulse Oximetry 99 98 95 07/13/18 00:00 07/13/18 01:00 07/13/18 02:00 Temperature 98.6 F Pulse Rate 48 L 52 L 52 L Respiratory Rate 17 10 L 16 Blood Pressure 140/73 112/57 L 133/63 Pulse Oximetry 97 93 L 07/13/18 03:00 07/13/18 04:00 07/13/18 05:00 Temperature 98.5 F Pulse Rate 55 L 55 L 55 L Respiratory Rate 11 L 14 12 Blood Pressure 117/56 L 132/61 101/52 L Pulse Oximetry 96 96 97 07/13/18 06:00 Temperature Pulse Rate 48 L Respiratory Rate 12 Blood Pressure 87/50 L Pulse Oximetry 97 Intake & Output 07/12/18 07/13/18 07/13/18 18:59 06:59 18:59 Intake Total 2425 / 2425 1785 / 1785 Output Total 870 / 870 650 / 650 Balance 1555 / 1555 1135 / 1135 Weight 81.8 kg Intake: IV 1105 / 1105 1105 / 1105 NS Inj 1,000 ML @ 70 mls/hr IV. 1000 / 1000 1000 / 1000 CONT .[id number] KRZYSZTOF Rx#:[id number] Keppra Inj 500 MG In NS Inj 100 105 / 105 105 / 105 ML @ 400 mls/hr IV.SIG Q12H KRZYSZTOF Rx#:[id number] Oral 1120 / 1120 680 / 680 Other 200 / 200 Output: Urine 400 / 400 500 / 500 Stool Amount (Stoma) 470 / 470 150 / 150 Pre-Hospital: Right Upper 470 / 470 150 / 150 Abdomen Other: # Voids 3 2 # Urine Diapers 1 Date of Last Bowel Movement 07/12/18 07/12/18 # Bowel Movements 1 Constitutional no acute distress Routine Respiratory Exam Present CTA bilaterally Routine Cardiovascular Exam Present RRR Routine Abdominal Exam Present soft Routine Extremities Exam Comments: no pedal edema. Routine Neurological Exam Present alert and oriented X3 Results Labs CBC & Chem 7: 07/12/18 02:55 07/12/18 02:55 Assessment and Plan Plan A/P right parieto-occipital hemorrhage with probable recurrence of metastatic adenocarcinoma of the brain. 1.2 cm midline shift. History of adenocarcinoma colon s/p rectosigmoidectomy and diverting ileostomy (Dr. Roth) History of craniotomy with microsurgical resection of tumor 05/14/18 Dr. Fermin Decadron 4 mg IV every 6 hours. Mannitol 25 g IV every 8 hours. on Keppra 500 mg IV q12 hours. Neurosurgery following. Oncology consult appreciated; awaiting CT of the chest/abdomen. PROPH: SCDs for DVT prophylaxis. Pharmacology DVT prophylaxis is contraindicated due to intracerebral hemorrhage. Famotidine for stress ulcer prophylaxis for transfer to floor. Progress Note: Quality VTE Deep Vein Thrombosis/Pulmonary Embolism Present on Admission: No
--- NOTE | 2018-07-13 09:40 | CT ---
EXAM DATE: 07/13/2018 9:32 AM EST AGE/SEX: 63 years / Male INDICATIONS: Evaluate for metastatic disease. CLINICAL DATA: This is the patient's initial encounter. Patient reports that signs and symptoms have been present for 1 day and indicates a pain score of 5/10. MEDICAL/SURGICAL HISTORY: Carcinoma, colon. Hypertension. Colon resection. Craniotomy. Iliostomy. RADIATION DOSE: 5.17 CTDI (mGy) ; Combined studies COMPARISON: [facility] – [place], CT ABDOMEN & PELVIS W CONTRAST, 05/13/2018. . TECHNIQUE: Multiple contiguous axial images were obtained through the chest during bolus infusion of 93 ml Omnipaque 350 (iohexol) nonionic water-soluble contrast as a cumulative dose for multiple exa ms. Images were obtained in suspended respiration using multiple row detector helical technique. U sing automated exposure control and adjustment of the mA and/or kV according to patient size, radiati on dose was kept as low as reasonably achievable to obtain optimal diagnostic quality images. DICOM format image data is available electronically for review and comparison. FINDINGS: Focally lymph node conglomerates are seen of both nettie measuring approximately 3.6 x 6.5 x 4.2 cm on the right and 3.9 x 6.4 x 7.4 cm on the left. There is associated mild mass effect and mild attenuati on of the bronchi and pulmonary vessels but nothing included. Heart size is normal. There is an 18 mm left lower lobe mass and a 21 mm right lower lobe mass, both appearing larger than on the comparison CT of the abdomen and pelvis which partially included the lung bases. There is a 1 cm left upper lobe mass and a few scattered bilateral sub-5 mm nodules. No acute pneumonia. No pleural effusion or pneumothorax. No lytic or sclerotic lesions seen of the visualized osseous structures. CONCLUSION: 1. Bilateral hilar metastatic lymphadenopathy. 2. Bilateral pulmonary metastatic disease. Electronically signed by: Jadon Gracia MD Board Certified Radiologist 07/13/2018 9:39 AM EST
--- NOTE | 2018-07-13 09:43 | CT ---
EXAM DATE: 07/13/2018 9:33 AM EST AGE/SEX: 63 years / Male INDICATIONS: Evaluate for metastatic disease. CLINICAL DATA: This is the patient's initial encounter. Patient reports that signs and symptoms have been present for 1 day and indicates a pain score of 2/10. MEDICAL/SURGICAL HISTORY: Carcinoma, colon. Hypertension. Colon resection. Craniotomy. Ileost lucia. ORAL CONTRAST: Prescribed oral contrast ingested. RADIATION DOSE: 5.17 CTDI (mGy) ; Combined studies COMPARISON: [facility] – [place], CT ABDOMEN & PELVIS W CONTRAST, 05/13/2018. . TECHNIQUE: Multiple contiguous axial images were obtained through the abdomen and pelvis following b olus infusion of 93 ml Omnipaque 350 (iohexol) nonionic water-soluble contrast as a cumulative dose for multiple exams. Prescribed oral contrast ingested. Using automated exposure control and adjustm ent of the mA and/or kV according to patient size, radiation dose was kept as low as reasonably achie vable to obtain optimal diagnostic quality images. DICOM format image data is available electronical ly for review and comparison. FINDINGS: LOWER LUNGS: 1.6 cm left lung base nodule. 2.6 cm nodule in the right lung base. LIVER: Stable 8 mm hypodense lesion in the right lobe of the liver adjacent the falciform ligament. M ild diffusely decreased hepatic attenuation. 17 mm calcified gallstone. SPLEEN: Homogeneous density without enlargement. PANCREAS: Unremarkable without mass or calcification. KIDNEYS: Kidneys demonstrate symmetrical enhancement and are symmetrical in size without evidence fo r radiopaque renal calculi or hydronephrosis. ADRENAL GLANDS: Unremarkable. AORTA: Chela-aneurysmal. BOWEL/MESENTERY: Redemonstration of right lower quadrant ileostomy with small parastomal hernia cont aining a loop of normal-appearing small bowel. Bowel loops otherwise normal in caliber without eviden ce for obstruction. No free fluid or drainable fluid collections. No free air or pneumatosis. ABDOMINAL WALL: As above. RETROPERITONEUM: No evidence of adenopathy in the retrocrural, para-aortic, or deep pelvic regions. BLADDER: Contours are smooth. 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 This is not well demonstrated on this single phase contrast exam. REPRODUCTIVE: No abnormal masses or calcifications seen. BONY STRUCTURES: Degenerative spondylosis of the lower lumbar spine. No focal lytic or blastic bony lesions. CONCLUSION: 1. Apparent metastatic nodules in the lung bases bilaterally. Please see separate chest CT report fo r details. 2. Stable 8 mm right hepatic lobe hypodense lesion which is too small to fully characterize. 3. Otherwise, no evidence for metastatic disease in the abdomen or pelvis. 4. Right lower quadrant ileostomy with stable small parastomal hernia. 5. 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 This is not well demonstrated on t his single phase contrast exam. Electronically signed by: Jg Martinez MD Board Certified Radiologist 07/13/2018 9:42 AM EST
[2018-07-13] MEDS ORDERED: Influenza (Quadrivalent) Vaccine 0.5 ML Syringe IM ONE (15:00)
--- NOTE | 2018-07-13 17:34 | P.PNPAL ---
Notes reviewed, pt discussed with Dr Gonzalez. Have set up palliative meeting with pt's daughter and tomorrow 07/14 @ 1000. Full consult to follow
--- NOTE | 2018-07-13 23:54 | P.PNONC ---
Subjective Interval history: Sitting in bedside chair. CT chest with evidence of metastatic disease. Palliative care team following. Objective Vital Signs/Intake & Output: Vital Signs 07/13/18 00:00 07/13/18 01:00 07/13/18 02:00 Temperature 98.6 F Pulse Rate 48 L 52 L 52 L Respiratory Rate 17 10 L 16 Blood Pressure 140/73 112/57 L 133/63 Pulse Oximetry 97 93 L 07/13/18 03:00 07/13/18 04:00 07/13/18 05:00 Temperature 98.5 F Pulse Rate 55 L 55 L 55 L Respiratory Rate 11 L 14 12 Blood Pressure 117/56 L 132/61 101/52 L Pulse Oximetry 96 96 97 07/13/18 06:00 07/13/18 06:09 07/13/18 07:00 Temperature Pulse Rate 48 L 79 56 L Respiratory Rate 12 42 H 15 Blood Pressure 87/50 L 115/63 122/60 Pulse Oximetry 97 100 96 07/13/18 08:00 07/13/18 12:00 07/13/18 16:00 Temperature 97.5 F L 97.5 F L 98.1 F Pulse Rate 56 L 56 L 63 Respiratory Rate 17 18 21 Blood Pressure 117/60 140/70 129/71 Pulse Oximetry 94 L 97 07/13/18 19:49 07/13/18 19:50 07/13/18 20:00 Temperature 97.9 F 98.1 F Pulse Rate 64 65 62 Respiratory Rate 14 21 15 Blood Pressure 156/70 H 156/70 H 134/66 Pulse Oximetry 96 95 07/13/18 20:15 07/13/18 20:49 07/13/18 21:00 Temperature 98.1 F Pulse Rate 54 L 52 L 51 L Respiratory Rate 19 11 L 16 Blood Pressure 141/71 H 121/71 145/76 H Pulse Oximetry 07/13/18 21:49 07/13/18 22:00 Temperature 98.5 F Pulse Rate 50 L 50 L Respiratory Rate 23 24 Blood Pressure 142/75 H 144/74 H Pulse Oximetry Intake & Output 07/13/18 07/13/18 07/14/18 06:59 18:59 06:59 Intake Total 1785 / 1785 1391 / 1391 Output Total 650 / 650 1450 / 1450 Balance 1135 / 1135 -59 / -59 Weight 81.8 kg Intake: IV 1105 / 1105 751 / 751 NS Inj 1,000 ML @ 70 mls/hr IV. 1000 / 1000 646 / 646 CONT .[id number] [facility], [facility] Rx#:[id number] Keppra Inj 500 MG In NS Inj 100 105 / 105 105 / 105 ML @ 400 mls/hr IV.SIG Q12H KRZYSZTOF Rx#:[id number] Oral 680 / 680 640 / 640 Output: Urine 500 / 500 1250 / 1250 Stool Amount (Stoma) 150 / 150 200 / 200 Pre-Hospital: Right Upper 150 / 150 200 / 200 Abdomen Other: # Voids 2 2 # Incontinent Voids 2 # Urine Diapers 2 Date of Last Bowel Movement 07/12/18 07/13/18 Result Diagrams: 07/12/18 02:55 07/14/18 00:43 Laboratory Results: Laboratory Results - last 24 hr 07/13/18 07/13/18 07/13/18 03:08 07:58 12:26 POC Glucose 116 H 156 H Osmolality 295 07/13/18 07/13/18 07/13/18 17:15 17:51 20:50 POC Glucose 118 H 225 H Osmolality 296 H Imaging Studies: Impressions Abdomen/Pelvis CT 07/13/18 00:00 CONCLUSION: 1. Apparent metastatic nodules in the lung bases bilaterally. Please see separate chest CT report for details. 2. Stable 8 mm right hepatic lobe hypodense lesion which is too small to fully characterize. 3. Otherwise, no evidence for metastatic disease in the abdomen or pelvis. 4. Right lower quadrant ileostomy with stable small parastomal hernia. 5. 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 This is not well demonstrated on this single phase contrast exam. Chest CT 07/13/18 00:00 CONCLUSION: 1. Bilateral hilar metastatic lymphadenopathy. 2. Bilateral pulmonary metastatic disease. Medications: Active Medications Generic Name Dose Route Start Last Admin Trade Name Freq PRN Reason Stop Dose Admin Hydrocodone Bitart/Acetaminophen 1 tab 07/11/18 00:07 07/11/18 13:36 Gaastra 5/325 PO 1 tab Q4H PRN Administration PAIN SCALE 1 TO 5 Benzocaine/Menthol 1 lozenge 07/12/18 20:00 07/12/18 21:01 Cepacol Max Strength BUCCAL 1 lozenge Q2H PRN Administration SORE THROAT Chlorhexidine Gluconate 3 pack 07/11/18 04:00 07/13/18 04:01 Chlorhexidine 2% Cloth TOPICAL 07/16/18 03:59 3 pack DAILY@0400 KRZYSZTOF Administration Dexamethasone Sodium Phosphate 4 mg 07/11/18 00:00 07/13/18 18:46 Decadron Inj IV.PUSH 4 mg Q6HR KRZYSZTOF Administration Famotidine 20 mg 07/11/18 09:00 07/13/18 20:52 Pepcid PO 20 mg BID KRZYSZTOF Administration Levetiracetam 500 mg/ Sodium 105 mls @ 400 mls/hr 07/11/18 01:00 07/13/18 12: 46 Chloride IV.SIG Infused Q12H KRZYSZTOF Infusion Sodium Chloride 1,000 mls @ 70 mls/hr 07/11/18 02:00 07/13/18 18:46 Ns Inj IV.CONT 70 mls/hr .[id number] KRZYSZTOF Administration Insulin Aspart 0 unit 07/11/18 12:00 07/13/18 20:53 Novolog Insulin Correctional Sugar Inj SQ 3 unit ACHS KRZYSZTOF Administration Protocol Mannitol 25 gm 07/11/18 08:00 07/13/18 19:38 Mannitol Inj IV.PUSH 25 gm Q8H KRZYSZTOF Administration Morphine Sulfate 2 mg 07/11/18 00:07 07/11/18 16:56 Morphine Inj IV.PUSH 2 mg Q2H PRN Administration PAIN SCALE 6 TO 10 Senna/Docusate Sodium 1 tab 07/11/18 09:00 07/13/18 20:52 Janis-Colace PO 1 tab BID KRZYSZTOF Administration Sodium Chloride 2 ml 07/11/18 09:00 07/13/18 22:34 Ns Flush IV.FLUSH Not Given BID FORMERLY [facility], [facility]1983 Objective Remarks: GENERAL: Well-nourished, well-developed patient. SKIN: Warm and dry. HEAD: Normocephalic. EYES: No scleral icterus. No injection or drainage. RESPIRATORY: No accessory muscle use. GASTROINTESTINAL: Abdomen soft, non-tender, nondistended. EXTREMITIES: No cyanosis, or edema. MUSCULOSKELETAL: Adequate muscle tone. NEUROLOGICAL: No obvious focal deficit. Assessment/Plan - Plan 1. Metastatic colon cancer with intracranial lesion: palliative care team meeting with family planned for tomorrow.
[2018-07-14 01:00] LABS: Sodium 143 meq/L (136-145)
[2018-07-14] MEDS: Chlorhexidine Gluconate 2% 1 Pack (2 Cloths) TOPICAL SCH (05:38)
[2018-07-14 06:31] VITALS: RESP 18
[2018-07-14] MEDS: Sod Chloride 0.9% Inj 1,000 ML IV.CONT SCH (08:01)
--- NOTE | 2018-07-14 08:53 | P.PNIM ---
Subjective Interval history: Follow-up brain cancer. Complains of slight headache denies dizziness or double vision. Seen with family Physical Exam Vital signs: Vital Signs 07/13/18 12:00 07/13/18 16:00 07/13/18 19:49 Temperature 97.5 F L 98.1 F 97.9 F Pulse Rate 56 L 63 64 Respiratory Rate 18 21 14 Blood Pressure 140/70 129/71 156/70 H Pulse Oximetry 97 07/13/18 19:50 07/13/18 20:00 07/13/18 20:15 Temperature 98.1 F Pulse Rate 65 62 54 L Respiratory Rate 21 15 19 Blood Pressure 156/70 H 134/66 141/71 H Pulse Oximetry 96 95 07/13/18 20:49 07/13/18 21:00 07/13/18 21:49 Temperature 98.1 F 98.5 F Pulse Rate 52 L 51 L 50 L Respiratory Rate 11 L 16 23 Blood Pressure 121/71 145/76 H 142/75 H Pulse Oximetry 07/13/18 22:00 07/13/18 22:49 07/13/18 23:00 Temperature 97.8 F Pulse Rate 50 L 80 79 Respiratory Rate 24 21 22 Blood Pressure 144/74 H 153/78 H 159/88 H Pulse Oximetry 07/14/18 00:00 07/14/18 01:00 07/14/18 02:00 Temperature 97.6 F Pulse Rate 49 L 52 L 47 L Respiratory Rate 13 16 11 L Blood Pressure 119/55 L 122/61 122/60 Pulse Oximetry 96 07/14/18 02:49 07/14/18 04:00 07/14/18 06:29 Temperature 98.2 F 97.8 F Pulse Rate 60 46 L 86 Respiratory Rate 13 15 18 Blood Pressure 133/68 139/70 Pulse Oximetry 95 100 07/14/18 06:49 Temperature 98.4 F Pulse Rate 65 Respiratory Rate 18 Blood Pressure 135/63 Pulse Oximetry 100 Intake & Output 07/13/18 07/14/18 07/14/18 18:59 06:59 18:59 Intake Total 1391 / 1391 585 / 585 Output Total 1450 / 1450 200 / 200 Balance -59 / -59 385 / 385 Intake: IV 751 / 751 105 / 105 NS Inj 1,000 ML @ 70 mls/hr IV. 646 / 646 CONT .[id number] KRZYSZTOF Rx#:[id number] Keppra Inj 500 MG In NS Inj 100 105 / 105 105 / 105 ML @ 400 mls/hr IV.SIG Q12H KRZYSZTOF Rx#:[id number] Oral 640 / 640 480 / 480 Output: Urine 1250 / 1250 Stool Amount (Stoma) 200 / 200 200 / 200 Pre-Hospital: Right Upper 200 / 200 200 / 200 Abdomen Other: # Voids 2 # Incontinent Voids 2 2 # Urine Diapers 2 Date of Last Bowel Movement 07/13/18 Narrative: GENERAL: This is a well-nourished, well-developed patient, in no apparent distress. CARDIOVASCULAR: Regular rate and rhythm without murmurs, gallops, or rubs. RESPIRATORY: Clear to auscultation. Breath sounds equal bilaterally. No wheezes , rales, or rhonchi. GASTROINTESTINAL: Abdomen soft, non-tender, nondistended. Normal active bowel sounds MUSCULOSKELETAL: Extremities without clubbing, cyanosis, or edema. NEURO: Alert & Oriented x4 to person, place, time, situation. Moves all ext x4 with slight left upper and left lower extremity weakness Results Labs CBC & Chem 7: 07/12/18 02:55 07/14/18 09:13 Imaging Imaging: ITS Impressions Cervical Spine CT 07/10/18 19:35 CONCLUSION: 1. Moderate degenerative change. No acute findings. Chest X-Ray 07/10/18 19:35 CONCLUSION: Right Versbt-[id number]-Undr in superior vena cava. Abnormal perihilar density, possibly adenopathy or perihilar infiltrate with a possible nodule at the right lung base. Findings would be better evaluated with chest CT. Head CT 07/10/18 19:35 CONCLUSION: 1. New hemorrhage, edema and worsening mass effect in the right hemisphere with midline shift increasing from 8 mm to 12 mm since April 2018. . . Knee X-Ray 07/10/18 19:35 CONCLUSION: No acute findings. Mild osteoarthritis of the left knee. Head MRI 07/11/18 00:00 CONCLUSION: 1. Large enhancing hemorrhagic mass in the right occipital lobe with adjacent vasogenic edema with mass effect and [id number] midline shift of 8 to 9 mm. 2. Several other smaller enhancing masses are seen in the right occipital lobe and also there is extension through the craniotomy defect and involves the right occipital calvarium as above. Abdomen/Pelvis CT 07/13/18 00:00 CONCLUSION: 1. Apparent metastatic nodules in the lung bases bilaterally. Please see separate chest CT report for details. 2. Stable 8 mm right hepatic lobe hypodense lesion which is too small to fully characterize. 3. Otherwise, no evidence for metastatic disease in the abdomen or pelvis. 4. Right lower quadrant ileostomy with stable small parastomal hernia. 5. 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 This is not well demonstrated on this single phase contrast exam. Chest CT 07/13/18 00:00 CONCLUSION: 1. Bilateral hilar metastatic lymphadenopathy. 2. Bilateral pulmonary metastatic disease. Assessment and Plan Plan Metastatic colon cancer with intracranial lesion right parieto-occipital hemorrhage with probable recurrence of metastatic adenocarcinoma of the brain. 1.2 cm midline shift. History of adenocarcinoma colon s/p rectosigmoidectomy and diverting ileostomy (Dr. Roth) History of craniotomy with microsurgical resection of tumor 05/14/18 Dr. Fermin Decadron 4 mg IV every 6 hours. Mannitol 25 g IV every 8 hours. on Keppra 500 mg q12 hours. Neurosurgery following. Palliative care consulted PT rec rehab and [facility] PROPH: SCDs for DVT prophylaxis. Pharmacology DVT prophylaxis is contraindicated due to intracerebral hemorrhage. Famotidine for stress ulcer prophylaxis Progress Note: Quality VTE Deep Vein Thrombosis/Pulmonary Embolism Present on Admission: No
[2018-07-14] MEDS ORDERED: levETIRAcetam 500 MG Tablet PO SCH (09:00)
[2018-07-14] MEDS: Famotidine 20 MG Tablet PO SCH (09:10)
[2018-07-14] MEDS: Senna/Docusate Sodium 8.6/50 MG Tablet PO SCH (09:10)
[2018-07-14] MEDS: Insulin NovoLOG Aspart Correctional Sugar Inj SQ SCH ×2 (09:12→15:46)
--- NOTE | 2018-07-14 09:55 | P.CONPAL ---
Consult Service: Palliative Care Requesting Physician: Marta Gonzalez Reason for Consult: a. To assist with evaluation and management of symptoms including: pain, weakness b. To assist medical decision maker(s) with: better understanding of current medical conditions; weighing benefits/burdens of medical treatment options; making medical treatment decisions. Primary Care Provider: Elver Plummer History of Present Illness History of Present Illness: This is a 63-year-old male with history colon cancer s/p rectosigmoidectomy and chemotherapy, ileostomy who presented to the ER 07/10 for weakness, left lev- paresis, and falls. 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 He is S/P craniotomy 05/14. CXR showed abnormal perihilar density, possible adenopathy versus infiltrate, possible nodule right lung base. Further imaging indicated new hemorrhage, edema, midline shift increased in the last 2 months, small masses right occipital lobe. Surgery consulted, recommend no surgical interventions for rectovesical fistula and recommend no Mccormick. Neurosurgery consulted do not feel patient is good candidate for surgery given debility and frailty. Oncology consulted and feel that if patient is found to have further test assist, palliative care and hospice appropriate. Abdominal and chest CT done for staging and show metastases both lungs, hilar metastatic lymphadenopathy, liver nodule too small to characterize. Pt seen in room, stepdaughter and at bedside. Pt just finsihing with OT, now OOB to chair. He is alert and oriented. He endorses pain 4/10 in the back of his head. He has no other complaints. Function/Cognitive Trajectory: Pt has had relatively acute decline in the last week with return of left side weakness and headaches. Family reports some short term memory deficits in last few months Review of Systems Constitutional: Reports weakness Eyes: Denies change in vision Ears, Nose, Mouth, and Throat: Reports sore throat, Denies abnormal hearing Cardiovascular: Denies chest pain Respiratory: Denies coughing up blood, Denies shortness of breath Gastrointestinal: Denies abdominal pain, Denies vomiting Musculoskeletal: Reports muscle weakness Skin/Breast: Denies bleeding lesions Neurologic: Reports headache(s), Reports localized weakness, Reports radiating pain, Reports weakness, Denies abnormal speech Psychiatric: Denies anxiety Hematologic/Lymphatic: Denies easy bleeding PMFSH - History History Provided By: Patient, Family Member, Medical Record - Medical History Medical History: Medical History (Last Reviewed 07/14/18 @ 09:14 by Uma Steele) Ileostomy present Infection of wound of perineum Port-A-Cath in place Colon cancer HTN (hypertension) - Surgical History Surgical History: Surgical History (Last Reviewed 07/14/18 @ 09:14 by Uma Steele) History of colon resection History of craniotomy - Family History Family History: Family History (Last Updated 07/11/18 @ 04:45 by Gloria Wilcox MD) Sister Breast cancer - Tobacco History Second Hand Smoke Exposure: Yes Tobacco Use In Past 30 Days: Yes Smoking Status: Former smoker Tobacco Type: Cigarettes Smoking End Date: 2 weeks ago - Alcohol History How Often Do You Have a Drink Containing Alcohol: Never - Substance Use History Substance History: No History of Abuse - Travel History Recent Travel in the [place] Within the Last 8 Weeks: No Recent Travel Out of the Country Within the Last 8 Weeks: No - Immunization History Tetanus Immunization: Unsure Hx Influenza Vaccine This Season: No Medications and Allergies Active Medications: Active Medications Acetaminophen (Tylenol) 650 mg PO Q6H PRN PRN Reason: PAIN 1-10 AND/OR FEVER >101F Hydrocodone Bitart/Acetaminophen ([place] 5/325) 1 tab PO Q4H PRN PRN Reason: PAIN SCALE 1 TO 5 Last Admin: 07/14/18 09:11 Dose: 1 tab Al Hydroxide/Mg Hydroxide (Milk Of Magnshade Liq) 30 ml PO Q12H PRN PRN Reason: Mild Constipation Albuterol (Albuterol Neb (Prn)) 2.5 mg NEB Q2HR NEB PRN PRN Reason: SOB/WHEEZING Benzocaine/Menthol (Cepacol Max Strength) 1 lozenge BUCCAL Q2H PRN PRN Reason: SORE THROAT Last Admin: 07/12/18 21:01 Dose: 1 lozenge Bisacodyl (Dulcolax Supp) 10 mg RECTAL DAILY PRN PRN Reason: SEVERE CONSITIPATION Chlorhexidine Gluconate (Chlorhexidine 2% Cloth) 3 pack TOPICAL DAILY@0400 [id number] Stop: 07/16/18 03:59 Last Admin: 07/14/18 05:38 Dose: 3 pack Chlorhexidine Gluconate (Chlorhexidine 2% Cloth) 3 pack TOPICAL DAILY@0400 PRN PRN Reason: Extra cloth needed Stop: 07/16/18 03:59 Dexamethasone Sodium Phosphate (Decadron Inj) 4 mg IV.PUSH Q6HR [facility] Last Admin: 07/14/18 05:37 Dose: 4 mg Dextrose (D50w Vial) 50 ml IV.PUSH UNSCH PRN PRN Reason: PER HYPOGLYCEMIA PROTOCOL Famotidine (Pepcid) 20 mg PO BID [facility] Last Admin: 07/14/18 09:10 Dose: 20 mg Glucagon (Glucagon Inj) 1 mg OTHER PRN PRN PRN Reason: for Hypoglycemia Protocol Hydralazine HCl (Apresoline Inj) 10 mg IV.PUSH Q30M PRN PRN Reason: SBP >160 Nicardipine HCl 25 mg/ Sodium (Chloride) 250 mls @ 50 mls/hr IV.CONT TITRATE PRN; Protocol PRN Reason: Per Protocol Insulin Aspart (Novolog Insulin Correctional Sugar Inj) 0 unit SQ ACHS [facility]; Protocol Last Admin: 07/14/18 09:12 Dose: Not Given Labetalol HCl (Trandate Inj) 10 mg IV.PUSH Q4H PRN PRN Reason: SBP > 160 Lactulose (Lactulose Liq) 30 ml PO DAILY PRN PRN Reason: SEVERE CONSITIPATION Levetiracetam (Keppra) 500 mg PO BID [facility] Mannitol (Mannitol Inj) 25 gm IV.PUSH Q8H [facility] Last Admin: 07/14/18 09:11 Dose: 25 gm Morphine Sulfate (Morphine Inj) 2 mg IV.PUSH Q2H PRN PRN Reason: PAIN SCALE 6 TO 10 Last Admin: 07/11/18 16:56 Dose: 2 mg Ondansetron HCl (Zofran Inj) 4 mg IV.PUSH Q6H PRN PRN Reason: NAUSEA OR VOMITING Senna/Docusate Sodium (Janis-Colace) 1 tab PO BID [facility] Last Admin: 07/14/18 09:10 Dose: 1 tab Sennosides (Senokot) 17.2 mg PO Q12H PRN PRN Reason: Moderate Constipation Sodium Chloride (Ns Flush) 2 ml IV.FLUSH BID [facility] Last Admin: 07/13/18 22:34 Dose: Not Given Sodium Chloride (Ns Flush) 2 ml IV.FLUSH PRN PRN PRN Reason: FLUSH AFTER USING IV ACCESS Last Admin: 07/14/18 05:38 Dose: 2 ml Allergies Allergy/AdvReac Type Severity Reaction Status Date / Time No Known Allergies Allergy Verified 05/12/18 19:29 Advance Directives Living Will: No Healthcare Surrogate: No Power of Bacteriologist Pharmaceutical: No Today's verbally stated goals: comfort Family/friends goals: comfort, home with hospice Ethical and Legal Issues: none Physical Exam Vital Signs: Vital Signs - 24 hr 07/13/18 12:00 07/13/18 16:00 07/13/18 19:49 Temperature 97.5 F L 98.1 F 97.9 F Pulse Rate 56 L 63 64 Respiratory Rate 18 21 14 Blood Pressure 140/70 129/71 156/70 H Pulse Oximetry 97 07/13/18 19:50 07/13/18 20:00 07/13/18 20:15 Temperature 98.1 F Pulse Rate 65 62 54 L Respiratory Rate 21 15 19 Blood Pressure 156/70 H 134/66 141/71 H Pulse Oximetry 96 95 07/13/18 20:49 07/13/18 21:00 07/13/18 21:49 Temperature 98.1 F 98.5 F Pulse Rate 52 L 51 L 50 L Respiratory Rate 11 L 16 23 Blood Pressure 121/71 145/76 H 142/75 H Pulse Oximetry 07/13/18 22:00 07/13/18 22:49 07/13/18 23:00 Temperature 97.8 F Pulse Rate 50 L 80 79 Respiratory Rate 24 21 22 Blood Pressure 144/74 H 153/78 H 159/88 H Pulse Oximetry 07/14/18 00:00 07/14/18 01:00 07/14/18 02:00 Temperature 97.6 F Pulse Rate 49 L 52 L 47 L Respiratory Rate 13 16 11 L Blood Pressure 119/55 L 122/61 122/60 Pulse Oximetry 96 07/14/18 02:49 07/14/18 04:00 07/14/18 06:29 Temperature 98.2 F 97.8 F Pulse Rate 60 46 L 86 Respiratory Rate 13 15 18 Blood Pressure 133/68 139/70 Pulse Oximetry 95 100 07/14/18 06:49 07/14/18 08:00 Temperature 98.4 F 97.7 F Pulse Rate 65 49 L Respiratory Rate 18 18 Blood Pressure 135/63 133/64 Pulse Oximetry 100 95 I&O: Intake & Output 07/12/18 07/13/18 07/14/18 07/15/18 06:59 06:59 06:59 06:59 Intake Total 1356 / 1356 4210 / 4210 1975 Output Total 905 / 905 1520 / 1520 1650 / 1650 Balance 451 / 451 2690 / 2690 326 / 326 Weight 81.8 kg 81.8 kg Physical Exam: CONSTITUTIONAL/GENERAL: This is an adequately nourished patient, in no apparent distress. TUBES/LINES/DRAINS: SKIN: sallow. No jaundice, rashes, or lesions. Ecchymoses on upper extremities. No wounds seen anteriorly. Skin temperature appropriate. Not diaphoretic. HEAD: Atraumatic. Normocephalic. EYES: Pupils equal and round and reactive. Extraocular motions intact. No scleral icterus. No injection or drainage. Fundi not examined. ENT: Hearing grossly normal. Nose without bleeding or purulent drainage. Throat without visible erythema, exudates, masses, or lesions. NECK: Trachea midline. Supple, nontender CARDIOVASCULAR: RRR without murmurs, gallops, or rubs. No JVD. Peripheral pulses symmetric. RESPIRATORY/CHEST: Symmetric, unlabored respirations. Clear to auscultation. Breath sounds equal bilaterally. No wheezes, rales, or rhonchi. GASTROINTESTINAL: Abdomen soft, non-tender, mildly distended. No hepato- splenomegaly, or palpable masses. No guarding. Bowel sounds present. +colostomy RLQ GENITOURINARY: Without palpable bladder distension. MUSCULOSKELETAL: Extremities without clubbing, cyanosis, or edema. No joint tenderness or effusion noted. No calf tenderness. No mottling or clubbing. LYMPHATICS: No palpable cervical or supraclavicular adenopathy. NEUROLOGICAL: Awake and alert. Follows commands. Cognitively sharp. PSYCHIATRIC: No obvious anxiety/depression. no apparent hallucinations or other psychotic thought process. Diagnostic Tests Laboratory: Laboratory Results - last 72 hr 07/11/18 07/11/18 07/11/18 13:37 16:45 17:19 WBC RBC Hgb Hct MCV MCH MCHC RDW Plt Count MPV Neut % (Auto) Lymph % (Auto) Summers % (Auto) Eos % (Auto) Baso % (Auto) Neut # (Auto) Lymph # (Auto) Summers # (Auto) Eos # (Auto) Baso # (Auto) WBC Differential Differential Comment Sodium Potassium Chloride Carbon Dioxide Anion Gap BUN Creatinine Estimated GFR POC Glucose 148 H 129 H Random Glucose Osmolality 295 Calcium Carcinoembryonic Ag 07/11/18 07/12/18 07/12/18 21:02 02:55 02:55 WBC 7.8 RBC 4.12 L Hgb 12.3 L Hct 36.0 L MCV 87.3 MCH 30.0 MCHC 34.3 RDW 14.0 Plt Count 199 MPV 8.2 Neut % (Auto) 90.4 H Lymph % (Auto) 7.2 L Summers % (Auto) 2.2 Eos % (Auto) 0.0 Baso % (Auto) 0.2 Neut # (Auto) 7.1 Lymph # (Auto) 0.6 L Summers # (Auto) 0.2 Eos # (Auto) 0.0 Baso # (Auto) 0.0 WBC Differential . Differential Comment Auto diff final Sodium Potassium Chloride Carbon Dioxide Anion Gap BUN Creatinine Estimated GFR POC Glucose 185 H Random Glucose Osmolality 299 H Calcium Carcinoembryonic Ag 07/12/18 07/12/18 07/12/18 02:55 09:47 13:29 WBC RBC Hgb Hct MCV MCH MCHC RDW Plt Count MPV Neut % (Auto) Lymph % (Auto) Summers % (Auto) Eos % (Auto) Baso % (Auto) Neut # (Auto) Lymph # (Auto) Summers # (Auto) Eos # (Auto) Baso # (Auto) WBC Differential Differential Comment Sodium 141 Potassium 4.4 Chloride 110 H Carbon Dioxide 22.3 Anion Gap 9 BUN 13 Creatinine 0.88 Estimated GFR 87 L POC Glucose 125 H 121 H Random Glucose 114 H Osmolality Calcium 8.5 Carcinoembryonic Ag 07/12/18 07/12/18 07/12/18 16:38 16:38 18:21 WBC RBC Hgb Hct MCV MCH MCHC RDW Plt Count MPV Neut % (Auto) Lymph % (Auto) Summers % (Auto) Eos % (Auto) Baso % (Auto) Neut # (Auto) Lymph # (Auto) Summers # (Auto) Eos # (Auto) Baso # (Auto) WBC Differential Differential Comment Sodium Potassium Chloride Carbon Dioxide Anion Gap BUN Creatinine Estimated GFR POC Glucose 145 H Random Glucose Osmolality 294 Calcium Carcinoembryonic Ag 46.2 H 07/12/18 07/13/18 07/13/18 20:29 03:08 07:58 WBC RBC Hgb Hct MCV MCH MCHC RDW Plt Count MPV Neut % (Auto) Lymph % (Auto) Summers % (Auto) Eos % (Auto) Baso % (Auto) Neut # (Auto) Lymph # (Auto) Summers # (Auto) Eos # (Auto) Baso # (Auto) WBC Differential Differential Comment Sodium Potassium Chloride Carbon Dioxide Anion Gap BUN Creatinine Estimated GFR POC Glucose 205 H 116 H Random Glucose Osmolality 295 Calcium Carcinoembryonic Ag 07/13/18 07/13/18 07/13/18 12:26 17:15 17:51 WBC RBC Hgb Hct MCV MCH MCHC RDW Plt Count MPV Neut % (Auto) Lymph % (Auto) Summers % (Auto) Eos % (Auto) Baso % (Auto) Neut # (Auto) Lymph # (Auto) Summers # (Auto) Eos # (Auto) Baso # (Auto) WBC Differential Differential Comment Sodium Potassium Chloride Carbon Dioxide Anion Gap BUN Creatinine Estimated GFR POC Glucose 156 H 118 H Random Glucose Osmolality 296 H Calcium Carcinoembryonic Ag 07/13/18 07/14/18 07/14/18 20:50 00:43 08:09 WBC RBC Hgb Hct MCV MCH MCHC RDW Plt Count MPV Neut % (Auto) Lymph % (Auto) Summers % (Auto) Eos % (Auto) Baso % (Auto) Neut # (Auto) Lymph # (Auto) Summers # (Auto) Eos # (Auto) Baso # (Auto) WBC Differential Differential Comment Sodium 143 Potassium Chloride Carbon Dioxide Anion Gap BUN Creatinine Estimated GFR POC Glucose 225 H 116 H Random Glucose Osmolality 295 Calcium Carcinoembryonic Ag Result Diagrams: 07/12/18 02:55 07/14/18 09:13 Imaging: ITS Impressions Cervical Spine CT 07/10/18 19:35 CONCLUSION: 1. Moderate degenerative change. No acute findings. Chest X-Ray 07/10/18 19:35 CONCLUSION: Right [id number] in superior vena cava. Abnormal perihilar density, possibly adenopathy or perihilar infiltrate with a possible nodule at the right lung base. Findings would be better evaluated with chest CT. Head CT 07/10/18 19:35 CONCLUSION: 1. New hemorrhage, edema and worsening mass effect in the right hemisphere with midline shift increasing from 8 mm to 12 mm since April 2018. . . Knee X-Ray 07/10/18 19:35 CONCLUSION: No acute findings. Mild osteoarthritis of the left knee. Head MRI 07/11/18 00:00 CONCLUSION: 1. Large enhancing hemorrhagic mass in the right occipital lobe with adjacent vasogenic edema with mass effect and [id number] midline shift of 8 to 9 mm. 2. Several other smaller enhancing masses are seen in the right occipital lobe and also there is extension through the craniotomy defect and involves the right occipital calvarium as above. Abdomen/Pelvis CT 07/13/18 00:00 CONCLUSION: 1. Apparent metastatic nodules in the lung bases bilaterally. Please see separate chest CT report for details. 2. Stable 8 mm right hepatic lobe hypodense lesion which is too small to fully characterize. 3. Otherwise, no evidence for metastatic disease in the abdomen or pelvis. 4. Right lower quadrant ileostomy with stable small parastomal hernia. 5. 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 This is not well demonstrated on this single phase contrast exam. Chest CT 07/13/18 00:00 CONCLUSION: 1. Bilateral hilar metastatic lymphadenopathy. 2. Bilateral pulmonary metastatic disease. Patient/Family Conference Present at Family Conference: Pt, , stepdaughter Family Conference Time: 42 Family Conference Location: Bedside Issues Discussed: Had lengthy discussion with use of [employer] hardware designer * Palliative care role, purpose, approach * Additional medical, psychosocial, and spiritual history * Patients general health, functional status, and cognitive changes in the months leading up to the current hospitalization * Patient/family understanding of the current medical problems * Patient/family understanding of prognosis * Patients goals of care as best understood from advance directives and/or conversations and/or values * Current medical treatment options and benefits/burdens of those options * Likely scenarios comparing ongoing aggressive care with a transition to comfort measures only * code status * Questions answered to the best of my ability * Palliative care contact information provided goals are comfort oriented. Family and patient would like to return home with hospice. In response to code status discussion, pt verbalized he would want to "naturalmente." Assessment and Plan - Disease Oriented Problem List (1) Colostomy in place (2) Intracranial hemorrhage (3) Metastatic adenocarcinoma to colorectal region Pertinent Non-Medical Issues: Psychosocial: Patient is [place] refugee who came over to [place] during the [place] boat [place] in 1979. 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 He has been to his current since 2005. He has no biological children, has 1 stepdaughter. Spiritual: Muslim does not play a large role in patient's life. Pastoral care available. Legal: Patient is currently capacitated to make decisions. In the event he loses capacity, per [place] statute proxy decision making would fall to his Ethical issues impacting care: none Important Contacts: Pamela [phone] Prognosis: This is a 63-year-old male with history colon cancer s/p rectosigmoidectomy and chemotherapy, ileostomy who presented to ER 07/10. 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 He has new hemorrhage in his brain with edema and midline shift increased from 2 months ago. Imaging also showing lung mets. He is not deemed good candidate for further neurosurgical interventions due to his frailty and debility. Given the extent of his metastatic disease his prognosis is quite poor. It is possible he could have further chemo to address the lung mets however he is not likely to survive long enough to receive benefit from it given the mass in his brain. Code Status: No Code DNR Plan: - LEGAL DECISION MAKER -Pt is currently capacitated to make decisions. In the event he loses capacity, in the absence of designated healthcare surrogate, proxy decision making falls to his . - CODE STATUS- no code - GOALS - goals are comfort oriented. Family and patient would like to return home with hospice. In response to code status discussion, pt verbalized he would want to "naturalmente." - SYMPTOMS - * pain - 2/2 hemorrhage, malignancy. site: head. risk for pain other sites of mets such as lung, abd. today pain in back of head 09/01. has norco 5, says it helps. * weakness/ debility - left side weakness, hemiparalysis. 2/2 hemorrhage, malignancy. expect to worsen. on decadron. * risk for dyspnea - newly found lung mets * risk for seizures - brain malignancy. on keppra - d/w Dr Gonzalez, Dr Fermin, Dr Olmos - Palliative care will continue to follow during hospital course as condition evolves, to assist patient/decision-maker with understanding of medical conditions, weighing benefits/burdens of treatment options, for clarification of goals of treatment. Additionally will assist with any symptoms of palliative concern Appreciation Thank you for the opportunity to participate in the care of Brayan Flores. Attestation Attestation: To help prompt me to consider important information that might be impacting today's encounter and assessment, information from prior notes written by myself or my colleagues may have been "brought forward" into today's note. My signature on this note, however, is an attestation that I personally performed the exam, history, and/or decision-making noted today, and, unless otherwise indicated, the interactions with patient, family, and staff as well as the review of records all occurred today. I also attest that the listed assessment and stated plan reflect my best clinical judgment today based on the combination of historical information, prior notes, and today's exam/ interactions. When time spent is documented, it refers only to time spent today by the signer, or if indicated, combined time spent today by collaborating physician/nurse practitioner.
[2018-07-14 10:15] LABS: Sodium 142 meq/L (136-145)
[2018-07-14 12:40] VITALS: BP 121/67; PULSE 61; TEMP 97.2; O2SAT 98
--- NOTE | 2018-07-14 15:41 | P.PNONC ---
Subjective Interval history: Patient sitting in chair, surrounded by family. His and daughter at the bedside, his daughter states that he is going home today with hospice. The patient is excited to go home. Objective Vital Signs/Intake & Output: Vital Signs 07/13/18 16:00 07/13/18 19:49 07/13/18 19:50 Temperature 98.1 F 97.9 F Pulse Rate 63 64 65 Respiratory Rate 21 14 21 Blood Pressure 129/71 156/70 H 156/70 H Pulse Oximetry 96 07/13/18 20:00 07/13/18 20:15 07/13/18 20:49 Temperature 98.1 F 98.1 F Pulse Rate 62 54 L 52 L Respiratory Rate 15 19 11 L Blood Pressure 134/66 141/71 H 121/71 Pulse Oximetry 95 07/13/18 21:00 07/13/18 21:49 07/13/18 22:00 Temperature 98.5 F Pulse Rate 51 L 50 L 50 L Respiratory Rate 16 23 24 Blood Pressure 145/76 H 142/75 H 144/74 H Pulse Oximetry 07/13/18 22:49 07/13/18 23:00 07/14/18 00:00 Temperature 97.8 F 97.6 F Pulse Rate 80 79 49 L Respiratory Rate 21 22 13 Blood Pressure 153/78 H 159/88 H 119/55 L Pulse Oximetry 96 07/14/18 01:00 07/14/18 02:00 07/14/18 02:49 Temperature Pulse Rate 52 L 47 L 60 Respiratory Rate 16 11 L 13 Blood Pressure 122/61 122/60 133/68 Pulse Oximetry 07/14/18 04:00 07/14/18 06:29 07/14/18 06:49 Temperature 98.2 F 97.8 F 98.4 F Pulse Rate 46 L 86 65 Respiratory Rate 15 18 18 Blood Pressure 139/70 135/63 Pulse Oximetry 95 100 100 07/14/18 08:00 07/14/18 12:00 Temperature 97.7 F 97.2 F L Pulse Rate 49 L 61 Respiratory Rate 18 18 Blood Pressure 133/64 121/67 Pulse Oximetry 95 98 Intake & Output 07/13/18 07/14/18 07/14/18 18:59 06:59 18:59 Intake Total 1391 / 1391 585 / 585 Output Total 1450 / 1450 200 / 200 Balance -59 / -59 385 / 385 Intake: IV 751 / 751 105 / 105 NS Inj 1,000 ML @ 70 mls/hr IV. 646 / 646 CONT .[id number] [facility] Rx#:[id number] Keppra Inj 500 MG In NS Inj 100 105 / 105 105 / 105 ML @ 400 mls/hr IV.SIG Q12H [facility]YSZTOF Rx#:[id number] Oral 640 / 640 480 / 480 Output: Urine 1250 / 1250 Stool Amount (Stoma) 200 / 200 200 / 200 Pre-Hospital: Right Upper 200 / 200 200 / 200 Abdomen Other: # Voids 2 # Incontinent Voids 2 2 # Urine Diapers 2 Date of Last Bowel Movement 07/13/18 Result Diagrams: 07/12/18 02:55 07/14/18 09:13 Laboratory Results: Laboratory Results - last 24 hr 07/13/18 07/13/18 07/13/18 17:15 17:51 20:50 Sodium POC Glucose 118 H 225 H Osmolality 296 H 07/14/18 07/14/18 07/14/18 00:43 08:09 09:13 Sodium 143 142 POC Glucose 116 H Osmolality 295 296 H 07/14/18 12:05 Sodium POC Glucose 141 H Osmolality Medications: Active Medications Generic Name Dose Route Start Last Admin Trade Name Freq PRN Reason Stop Dose Admin Hydrocodone Bitart/Acetaminophen 1 tab 07/11/18 00:07 07/14/18 09:11 [place] 5/325 PO 1 tab Q4H PRN Administration PAIN SCALE 1 TO 5 Benzocaine/Menthol 1 lozenge 07/12/18 20:00 07/12/18 21:01 Cepacol Max Strength BUCCAL 1 lozenge Q2H PRN Administration SORE THROAT Chlorhexidine Gluconate 3 pack 07/11/18 04:00 07/14/18 05:38 Chlorhexidine 2% Cloth TOPICAL 07/16/18 03:59 3 pack DAILY@0400 KR[facility]ZTOF Administration Dexamethasone Sodium Phosphate 4 mg 07/11/18 00:00 07/14/18 05:37 Decadron Inj IV.PUSH 4 mg Q6HR KRZYSZTOF Administration Famotidine 20 mg 07/11/18 09:00 07/14/18 09:10 Pepcid PO 20 mg BID KRZYSZTOF Administration Insulin Aspart 0 unit 07/11/18 12:00 07/14/18 09:12 Novolog Insulin Correctional Sugar Inj SQ Not Given ACHS [facility] Protocol Levetiracetam 500 mg 07/14/18 09:00 07/14/18 10:45 Keppra PO 500 mg BID KRZYSZTOF Administration Mannitol 25 gm 07/11/18 08:00 07/14/18 09:11 Mannitol Inj IV.PUSH 25 gm Q8H KRZYSZTOF Administration Morphine Sulfate 2 mg 07/11/18 00:07 07/11/18 16:56 Morphine Inj IV.PUSH 2 mg Q2H PRN Administration PAIN SCALE 6 TO 10 Senna/Docusate Sodium 1 tab 07/11/18 09:00 07/14/18 09:10 Janis-Colace PO 1 tab BID KRZYSZTOF Administration Sodium Chloride 2 ml 07/11/18 09:00 07/14/18 11:01 Ns Flush IV.FLUSH 2 ml BID KRZYSZTOF Administration Sodium Chloride 2 ml 07/11/18 00:07 07/14/18 05:38 Ns Flush IV.FLUSH 2 ml PRN PRN Administration FLUSH AFTER USING IV ACCESS Objective Remarks: GENERAL: Chronically ill-appearing elderly male patient, in no acute distress. SKIN: Warm and dry. HEAD: Normocephalic. Left facial droop. EYES: No scleral icterus. No injection or drainage. NECK: Supple, trachea midline. CARDIOVASCULAR: Regular rate and rhythm without murmurs. RESPIRATORY: Breath sounds equal bilaterally. No accessory muscle use. GASTROINTESTINAL: Abdomen soft, non-tender, nondistended. EXTREMITIES: No cyanosis, or edema. MUSCULOSKELETAL: Adequate muscle tone. NEUROLOGICAL: Left facial droop. Awake, alert. Assessment/Plan - Plan Pleasant 63-year-old gentleman with a history of extensive metastatic colon cancer. Plan: 1. Metastatic colon cancer with intracranial lesion, the patient and family have decided to go home with hospice care at home. 2. Questions were answered.
--- NOTE | 2018-07-14 15:57 | P.DS ---
DS: Providers Date of admission: 07/10/18 21:12 Primary care physician: Elver Plummer Consults: 07/10/18 20:38 Consult to Neurosurgery Stat Consulting Provider: Aj Fermin For STAT consult, spoke directly to:: community liaison officer pagevamsi Victoria Reason for Consultation: intracranial hemorrhage, history of metastatic adenocarcinoma with resection 04/2018 Spoke with:: Added to List. MD's spoke and Dr. Fermin agrees to take pt in consult Date Notified:: 07/10/18 Time Notified:: 20:53 Comments:: Per Dr. Victoria, patient is known to Dr. Fermin. Please call Dr. Fermin. Placed call to Dr. Fermin cell [place] [facility] [place]. Spoke with Uma in ED. MDs have spoken and Dr. Fermin will see patient in consult. Ordering Provider: DELMAR 07/11/18 17:50 Consult to Hospitalist Routine Consulting Provider: Lisseth Wills Reason for Consultation: brain mets Notified:: Service Spoke with:: MALU Date Notified:: 07/11/18 Time Notified:: 17:53 Ordering Provider: RITU 07/12/18 09:25 Consult to Oncology Routine Consulting Provider: Lina Olmos Reason for Consultation: brain cancer. Notified:: Office Spoke with:: Zaida Date Notified:: 07/12/18 Time Notified:: 09:33 Ordering Provider: KAMILLA 07/13/18 13:36 Consult to Palliative Care Routine Consulting Provider: John Call Reason for Consultation: metastatic colon cancer/ please assist with goals of care. Notified:: Service Spoke with:: bernadette Date Notified:: 07/13/18 Time Notified:: 13:45 Ordering Provider: KAMILLA Brief History from admission: History obtained from patient, review of EMR, discussion with his stepdaughter who is at bedside in the emergency department. 63-year-old male with past medical history of colorectal cancer s/p rectosigmoidectomy with diverting ileostomy 11/06/[address] Roth and chemotherapy that was reportedly completed in February and March 2018 (per his stepdaughter). He was diagnosed with right parietal-occipital mass with hemorrhage in April 2018 for which he underwent microsurgical resection by Dr. Fermin 05/14/18 (pathology showed adenocarcinoma consistent with prior colorectal cancer). He had L hemiparesis at the time of diagnosis but he states that had resolved postoperatively. He now states that left hemiparesis has returned the evening of 07/09/18. He fell that evening. Reportedly there was no head trauma. He has had persistent left hemiparesis and therefore came to the emergency department. He does complain of a moderate throbbing headache. No nausea, vomiting, photophobia, visual change. No seizure activity. CT obtained in the emergency department demonstrates hemorrhage in the posterior right hemisphere with surrounding edema and 1.2 cm right to left midline shift with compression of right ventricle. Dr. Fermin has been informed and has requested MRI, Decadron, and Keppra. Patient states he has not been on Decadron or any other medications at home because he has had difficulty with following up after hospital discharge due to lack of insurance. His oncologist is Dr. Vasquez. Patient is not on anticoagulant or antiplatelet therapy. 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 1.2 cm midline shift. History of adenocarcinoma colon s/p rectosigmoidectomy and diverting ileostomy (Dr. Roth) History of craniotomy with microsurgical resection of tumor 05/14/18 Dr. Fermin Decadron 4 mg IV every 6 hours. Mannitol 25 g IV every 8 hours. on Keppra 500 mg q12 hours. Neurosurgery following. Palliative care consulted Pt has opted for hospice care and will be dc today PROPH: SCDs for DVT prophylaxis. Pharmacology DVT prophylaxis is contraindicated due to intracerebral hemorrhage. Famotidine for stress ulcer prophylaxis Time Spent with Patient Total time spent providing and/or coordinating discharge services: Greater than 30 minutes Quality: VTE Deep Vein Thrombosis/Pulmonary Embolism Present on Admission: No Exam Narrative Exam Narrative: GENERAL: This is a well-nourished, well-developed patient, in no apparent distress. CARDIOVASCULAR: Regular rate and rhythm without murmurs, gallops, or rubs. RESPIRATORY: Clear to auscultation. Breath sounds equal bilaterally. No wheezes , rales, or rhonchi. GASTROINTESTINAL: Abdomen soft, non-tender, nondistended. Normal active bowel sounds MUSCULOSKELETAL: Extremities without clubbing, cyanosis, or edema. NEURO: Alert & Oriented x4 to person, place, time, situation. Moves all ext x4 with mild left upper and lower extremity weakness Results Labs on day of discharge: Labs from last 24 hours 07/14/18 07/14/18 07/14/18 12:05 09:13 08:09 Sodium 142 POC Glucose 141 H 116 H Osmolality 296 H 07/14/18 07/13/18 07/13/18 00:43 20:50 17:51 Sodium 143 POC Glucose 225 H 118 H Osmolality 295 07/13/18 17:15 Sodium POC Glucose Osmolality 296 H Impressions ITS Impressions Cervical Spine CT 07/10/18 19:35 CONCLUSION: 1. Moderate degenerative change. No acute findings. Chest X-Ray 07/10/18 19:35 CONCLUSION: Right [id number] in superior vena cava. Abnormal perihilar density, possibly adenopathy or perihilar infiltrate with a possible nodule at the right lung base. Findings would be better evaluated with chest CT. Head CT 07/10/18 19:35 CONCLUSION: 1. New hemorrhage, edema and worsening mass effect in the right hemisphere with midline shift increasing from 8 mm to 12 mm since April 2018. . . Knee X-Ray 07/10/18 19:35 CONCLUSION: No acute findings. Mild osteoarthritis of the left knee. Head MRI 07/11/18 00:00 CONCLUSION: 1. Large enhancing hemorrhagic mass in the right occipital lobe with adjacent vasogenic edema with mass effect and [id number] midline shift of 8 to 9 mm. 2. Several other smaller enhancing masses are seen in the right occipital lobe and also there is extension through the craniotomy defect and involves the right occipital calvarium as above. Abdomen/Pelvis CT 07/13/18 00:00 CONCLUSION: 1. Apparent metastatic nodules in the lung bases bilaterally. Please see separate chest CT report for details. 2. Stable 8 mm right hepatic lobe hypodense lesion which is too small to fully characterize. 3. Otherwise, no evidence for metastatic disease in the abdomen or pelvis. 4. Right lower quadrant ileostomy with stable small parastomal hernia. 5. 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 This is not well demonstrated on this single phase contrast exam. Chest CT 07/13/18 00:00 CONCLUSION: 1. Bilateral hilar metastatic lymphadenopathy. 2. Bilateral pulmonary metastatic disease. Discharge Plan Discharge Disposition Patient Disposition: 50 Hospice/Home Discharge Condition Condition: Serious Discharge Order Discharge Orders: Discharge Order (Routine); Ordered 07/14/18 Ordered By: Kiet Colon Physicians Team Primary Care Provider: Elver Plummer Attending Provider: Kiet Colon Other Providers: Aj Fermin ; Vladislav Sheppard ; Nnamdi Lauren ; [employer] ; Harris Campbell ; Germaine Brasher ; Rowdy Wan ; Sally Vasquez ; Dionisio Vázquez ; Agus Terrazas ; Lina Olmos ; John Call Rxs /Orders / Referrals /Forms Prescriptions: Continue levetiracetam [Keppra] 500 mg Tablet 500 mg PO BID Qty: 30 RF: 0 Referrals: Elver Plummer MD [Primary Care Provider] - See Instructions (f/u Hospice) Discharge Instructions Patient Printed Instructions: Levetiracetam (By mouth) Additional Instructions: Your Health Problems: Goals to Promote Your Health: * To prevent worsening of your condition * To maintain your health at the optimal level Directions to Meet Your Goals: * Take your medications as prescribed * Follow your dietary instruction * Follow activity as directed * Keep your appointments as scheduled * Take your immunizations and boosters as scheduled * If your symptoms worsen call your PCP * If no PCP go to Urgent Care or Emergency Room Smoking is dangerous to your health. Avoid second hand smoke. You may reach the 24-hour crisis hotline for domestic abuse at . Status ED Status: Left Department
== END 2018-07-14 16:09 | disposition hospice, home (50) | DRG 64 ==
LOC: NEPC 18:43 → NEDA 21:12 → N03 23:38 → N05 07-14 06:20
PROVIDERS: ADMIT Internal Medicine; ATTEND Internal Medicine
CPT/HCPCS: 70450; 70553; 71010; 71045; 71260; 72125; 73564; 74177; 80048; 80053; 82378; 82948; 82962; 83735; 83930; 84295; 85025; 85610; 86850; 86900; 86901; 87641; 90658; 90686; 93005; 94150; 97110; 97116; 97162; 99291; A9585; C9238; J1100; J1815; J1953; J2150; J2270; J7030; Q2038; Q9963; Q9967